=== PATIENT | male | born 1945 | race African-American/Black ===

== ENCOUNTER 2019-07-03 04:20 | Emergency (ER) | payer OTHER ==
--- OUTSIDE RECORDS SUMMARY | 2019-07-03 04:23 | XMS REPORT ---
:1945 [facility] Address [address] [place] [address] Dr. Belcher [address] [place] [id number] Care Team Providers Name Role Phone Unavailable Unavailable Unavailable Problems This patient has no known problems. Allergies, Adverse Reactions, Alerts This patient has no known allergies or adverse reactions. Medications This patient has no known medications.
--- NOTE | 2019-07-03 05:03 | EDPHYS ---
Physician Documentation [facility] Name: Lam Josue Age: 74 yrs Sex: Male : 1945 Arrival Date: 07/03/2019 Time: 04:21 Bed 20 Private MD: ED Physician Piper Ocampo HPI: 07/03 05:00 This 74 yrs old Black Male presents to ER via Ambulatory with complaints of Urinary ma2 Retention. 05:00 Onset: The symptoms/episode began/occurred gradually, 2 day(s) ago. Associated signs ma2 and symptoms: Pertinent negatives: blood in stools, constipation, diarrhea. Severity of pain: At its worst the pain was mild in the emergency department the pain is unchanged. The patient has not experienced similar symptoms in the past. Historical: - Allergies: 04:54 No Known Allergies; ea - PMHx: 04:54 Hypertension; ea - Immunization history:: Adult Immunizations up to date. - Coronavirus screen:: The patient has NOT traveled to [place] in the past 14 days. - Social history:: Patient/guardian denies using alcohol, street drugs, The patient lives with family, Smoking status: Patient denies any tobacco usage or history of. - Family history:: not pertinent. - Ebola Screening: : No symptoms or risks identified at this time. ROS: 05:00 Constitutional: Negative for fever, chills, and weight loss. ma2 05:00 All other systems are negative. Exam: 05:00 Constitutional: This is a well developed, well nourished patient who is awake, alert, ma2 and in no acute distress. Chest/axilla: Normal chest wall appearance and motion. Nontender with no deformity. No lesions are appreciated. Cardiovascular: Regular rate and rhythm with a normal S1 and S2. No gallops, murmurs, or rubs. Normal PMI, no JVD. No pulse deficits. Respiratory: Lungs have equal breath sounds bilaterally, clear to auscultation and percussion. No rales, rhonchi or wheezes noted. No increased work of breathing, no retractions or nasal flaring. Abdomen/GI: Soft, non-tender, with normal bowel sounds. No distension or tympany. No guarding or rebound. No evidence of tenderness throughout. Male : Normal genitalia with no discharge or lesions., had 500 cc in bladder, onofre inserted, pain resolved MS/ Extremity: Pulses equal, no cyanosis. Neurovascular intact. Full, normal range of motion. Neuro: Awake and alert, GCS 15, oriented to person, place, time, and situation. Cranial nerves II-XII grossly intact. Motor strength 5/5 in all extremities. Sensory grossly intact. Cerebellar exam normal. Normal gait. Vital Signs: 04:52 BP 121 / 75; Pulse 78; Resp 18; Temp 97.8; Pulse Ox 100% on R/A; Weight 72.57 kg; ea Height 5 ft. 8 in. (172.72 cm); 05:15 BP 107 / 65; Pulse 76; Resp 18; Pulse Ox 99% ; ea 04:52 Body Mass Index 24.33 (72.57 kg, 172.72 cm) ea MDM: 04:29 Patient medically screened. ma2 05:00 Differential diagnosis: Prostatitis, Ureterolithiasis, urinary tract infection. Data ma2 reviewed: vital signs, nurses notes. Counseling: I had a detailed discussion with the patient and/or guardian regarding: the historical points, exam findings, and any diagnostic results supporting the discharge/admit diagnosis, the presence of at least one elevated blood pressure reading (>120/80) during this emergency department visit. Response to treatment: the patient's symptoms have resolved after treatment. 02 04:29 Order name: Marge; Complete Time: 04:39 ma2 02 04:29 Order name: Urine Dipstick-Ancillary (obtain specimen) ma2 Administered Medications: No medications were administered Disposition: 07/03/19 05:02 Discharged to Home. Impression: Retention of urine, unspecified. - Condition is Stable. - Discharge Instructions: Acute Urinary Retention, Male, [id number]. - Prescriptions for Flomax 0.4 mg Oral Capsule, Sust. Release 24 hr - take 1 capsule by ORAL route once daily 1/2 hour following the same meal each day; 30 capsule. - Medication Reconciliation Form, Thank You Letter, Antibiotic Education, Prescription Opioid Use form. - Follow up: Hannah Joyce MD; When: 5 - 6 days; Reason: Continuance of care. Signatures: Lizz Russell RN RN ea Alzahri, Mohammad, MD MD ma2 Corrections: (The following items were deleted from the chart) 05:30 05:02 07/03/2019 05:02 Discharged to Home. Impression: Retention of urine, unspecified. ea Condition is Stable. Forms are Medication Reconciliation Form, Thank You Letter, Antibiotic Education, Prescription Opioid Use. Follow up: Hannah Joyce; When: 5 - 6 days; Reason: Continuance of care. ma2
--- NOTE | 2019-07-03 05:03 | ER ---
Nurse's Notes [facility] Name: Lam Josue Age: 74 yrs Sex: Male : 1945 Arrival Date: 07/03/2019 Time: 04:21 Bed 20 Private MD: Diagnosis: Retention of urine, unspecified Presentation: 07/03 04:40 Presenting complaint: Patient states: Pt reports he has been unable to urinate since 8 ea PM last night. Transition of care: patient was not received from another setting of care. Onset of symptoms was July 03, 2019. Risk Assessment: Do you want to hurt yourself or someone else? Patient reports no desire to harm self or others. Initial Sepsis Screen: Does the patient meet any 2 criteria? No. Patient's initial sepsis screen is negative. Does the patient have a suspected source of infection? No. Patient's initial sepsis screen is negative. 04:40 Method Of Arrival: Ambulatory ea 04:40 Acuity: RICHIE 3 ea 04:40 Care prior to arrival: None. ea Historical: - Allergies: 04:54 No Known Allergies; ea - PMHx: 04:54 Hypertension; ea - Immunization history:: Adult Immunizations up to date. - Coronavirus screen:: The patient has NOT traveled to [place] in the past 14 days. - Social history:: Patient/guardian denies using alcohol, street drugs, The patient lives with family, Smoking status: Patient denies any tobacco usage or history of. - Family history:: not pertinent. - Ebola Screening: : No symptoms or risks identified at this time. Screenin:40 Abuse screen: Denies threats or abuse. Nutritional screening: No deficits noted. ea Tuberculosis screening: No symptoms or risk factors identified. Fall Risk None identified. Assessment: 04:40 General: Appears uncomfortable, Behavior is calm, cooperative, appropriate for age. ea Pain: Complains of pain in pelvis. Neuro: Level of Consciousness is awake, alert, obeys commands, Oriented to person, place, time, situation. Respiratory: Airway is patent Respiratory effort is even, unlabored, Respiratory pattern is regular, symmetrical. Derm: Skin is pink, warm \T\ dry. 05:28 Reassessment: Patient and/or family updated on plan of care and expected duration. Pain ea level reassessed. Patient is alert, oriented x 3, equal unlabored respirations, skin warm/dry/pink. Discharge instruction given to patient , verbalized the understanding of instruction. Pt left ED ambulatory, Pt tolerating well. Vital Signs: 04:52 BP 121 / 75; Pulse 78; Resp 18; Temp 97.8; Pulse Ox 100% on R/A; Weight 72.57 kg; ea Height 5 ft. 8 in. (172.72 cm); 05:15 BP 107 / 65; Pulse 76; Resp 18; Pulse Ox 99% ; ea 04:52 Body Mass Index 24.33 (72.57 kg, 172.72 cm) ea ED Course: 04:21 Patient arrived in ED. ag3 04:29 Piper Ocampo MD is Attending Physician. ma2 04:30 Bird cath inserted, using sterile technique, 18 Fr., by ak, balloon inflated, to ea gravity drainage. 04:38 Lizz Russell RN is Primary Nurse. ea 04:40 Arm band placed on right wrist. Patient placed in an exam room, on a stretcher, on ea pulse oximetry. 04:40 Patient has correct armband on for positive identification. Placed in gown. Bed in low ea position. Call light in reach. 04:51 Triage completed. ea 05:02 Hannah Joyce MD is Referral Physician. ma2 05:28 No provider procedures requiring assistance completed. Patient did not have IV access ea during this emergency room visit. Administered Medications: No medications were administered Output: 05:00 Urine: 525ml (Bird); Total: 525ml. ea Outcome: 05:02 Discharge ordered by . ma2 05:29 Discharged to home ambulatory. ea 05:29 Condition: stable 05:29 Discharge instructions given to patient, Instructed on discharge instructions, follow up and referral plans. medication usage, Demonstrated understanding of instructions, follow-up care, medications, Prescriptions given X 1. 05:30 Patient left the ED. ea Signatures: Lizz Russell, ISABELA RN Piper Brambila MD MD ma2 Gomez, Alice ag3
[2019-07-03 06:47] VITALS: TEMP 97.8
[2019-07-03 06:48] VITALS: BP 107/65; O2SAT 99
== END 2019-07-03 05:30 | disposition home or self-care (01) ==
LOC: ER 04:20
DX: R33.9 Retention of urine, unspecified (principal); I10 Essential (primary) hypertension
CPT/HCPCS: 51702; 99284

== ENCOUNTER 2019-07-06 10:29 | Emergency (ER) | payer OTHER ==
--- OUTSIDE RECORDS SUMMARY | 2019-07-06 10:31 | XMS REPORT ---
:1945 [facility] Address [address] [place] [address] Dr. Belcher [address] [place] [id number] Care Team Providers Name Role Phone Unavailable Unavailable Unavailable Problems This patient has no known problems. Allergies, Adverse Reactions, Alerts This patient has no known allergies or adverse reactions. Medications This patient has no known medications.
[2019-07-06 14:10] LABS: Urine Blood 2+ (NEG); Urine Glucose NEGATIVE (NEG); Urine Protein 1+ (NEG); Urine pH 5.5 (5.0-7.0)
--- NOTE | 2019-07-06 15:27 | ER ---
Nurse's Notes [facility] Name: Lam Josue Age: 74 yrs Sex: Male : 1945 Arrival Date: 07/06/2019 Time: 10:32 Bed 16 Private MD: Diagnosis: Urinary tract infection, site not specified Presentation: 07/06 10:54 Presenting complaint: Here 3 days ago for urinary retention, report irritation at the hb catheter insertion site and bilateral hand swelling x 2 days. Transition of care: patient was not received from another setting of care. Onset of symptoms was July 05, 2019. Risk Assessment: Do you want to hurt yourself or someone else? Patient reports no desire to harm self or others. Care prior to arrival: None. 10:54 Method Of Arrival: Ambulatory hb 10:54 Acuity: RICHIE 4 hb 13:30 Initial Sepsis Screen: Does the patient meet any 2 criteria? No. Patient's initial ph sepsis screen is negative. Does the patient have a suspected source of infection? Yes: Catheter related infection (Bird/dialysis/PICC/central line). Historical: - Allergies: 10:56 No Known Allergies; hb - PMHx: 10:56 Hypertension; hb - PSHx: 10:56 None; hb - Immunization history:: Adult Immunizations up to date. - Coronavirus screen:: The patient has NOT traveled to [place] in the past 14 days. The patient has NOT had contact with known/suspected case of Coronavirus? Proceed with normal triage procedures. - Social history:: Smoking status: Patient denies any tobacco usage or history of. - Ebola Screening: : No symptoms or risks identified at this time. Screenin:00 Abuse screen: Denies threats or abuse. Denies injuries from another. Nutritional ph screening: No deficits noted. Tuberculosis screening: No symptoms or risk factors identified. Fall Risk None identified. Assessment: 13:30 General: Appears in no apparent distress. comfortable, Behavior is calm, cooperative, ph appropriate for age, Denies fever. Pain: Complains of pain in pelvis. Neuro: Level of Consciousness is awake, alert, obeys commands, Oriented to person, place, time, situation. Cardiovascular: Capillary refill < 3 seconds in bilateral fingers Patient's skin is warm and dry. Respiratory: Airway is patent Respiratory effort is even, unlabored, Respiratory pattern is regular, symmetrical. : Bird in place to gravity drainage Genitalia appear normal. Derm: Skin is intact, is healthy with good turgor, Skin is pink, warm \\T\\ dry. Musculoskeletal: Circulation, motion, and sensation intact. Range of motion: intact in all extremities, Swelling present in right hand and left hand. 14:40 Reassessment: Patient appears in no apparent distress at this time. Patient and/or ph family updated on plan of care and expected duration. Pain level reassessed. Patient is alert, oriented x 3, equal unlabored respirations, skin warm/dry/pink. Bird d/c per ERP order, pt tolerated well, now waiting for pt to urinate on his own. 15:20 Reassessment: Patient appears in no apparent distress at this time. Patient and/or ph family updated on plan of care and expected duration. Pain level reassessed. Patient is alert, oriented x 3, equal unlabored respirations, skin warm/dry/pink. Pt states, " I'm just ready to leave, I think it's going to take me a while to have to pee again. Do you think I can just go and then if I'm not able to pee I'll come back?". Vital Signs: 10:56 BP 107 / 69; Pulse 78; Resp 16; Temp 98.7; Pulse Ox 100% on R/A; Weight 68.04 kg; hb Height 5 ft. 8 in. (172.72 cm); Pain 4/10; 14:30 BP 127 / 86; Pulse 71; Resp 18; Temp 98.0; Pulse Ox 99% on R/A; ph 10:56 Body Mass Index 22.81 (68.04 kg, 172.72 cm) hb ED Course: 10:32 Patient arrived in ED. ag5 10:55 Triage completed. hb 10:56 Arm band placed on. hb 12:52 Shaquille Venegas PA is PHCP. [facility] 12:52 Casimiro Jacobsen MD is Attending Physician. [facility] 13:03 Audra Garcia, ISABELA is Primary Nurse. ph 13:30 Patient has correct armband on for positive identification. Bed in low position. Call light in reach. Side rails up X 1. Pulse ox on. NIBP on. 15:33 No provider procedures requiring assistance completed. Patient did not have IV access ph during this emergency room visit. Administered Medications: No medications were administered Outcome: 15: Discharge ordered by . gila 15:33 Patient left the ED. tw2 15: Discharged to home ambulatory. ph 15:33 Condition: good 15:33 Discharge instructions given to patient, Instructed on discharge instructions, follow up and referral plans. medication usage, Demonstrated understanding of instructions, follow-up care, medications, Prescriptions given X 1. Signatures: Shaquille Venegas PA PA jmm Hall, Patricia, RN RN Dara Lopez, ISABELA RN Lily Monte RN RN tw2 Clarence Villaseñor [facility]
--- NOTE | 2019-07-06 15:28 | EDPHYS ---
Physician Documentation [facility] Name: aLm Josue Age: 74 yrs Sex: Male : 1945 Arrival Date: 07/06/2019 Time: 10:32 Bed 16 Private MD: ED Physician Casimiro Jacobsen HPI: 07/06 13:30 This 74 yrs old Black Male presents to ER via Ambulatory with complaints of Infection. jmm 13:30 Onset: The symptoms/episode began/occurred gradually, 1 day(s) ago. Modifying factors: jmm The symptoms are alleviated by nothing, the symptoms are aggravated by nothing. Associated signs and symptoms: Pertinent positives: dysuria, Pertinent negatives: fever, hematuria, nausea, vomiting. This is a 74 year old male with a history of htn that presents to the ED with complaints of burning urination beginning yesterday. patient also has complains of ongoing bilateral hand pain and ankle swelling. Patient denies chest pain, fever, shortness of breath. . Historical: - Allergies: 10:56 No Known Allergies; hb - PMHx: 10:56 Hypertension; hb - PSHx: 10:56 None; hb - Immunization history:: Adult Immunizations up to date. - Coronavirus screen:: The patient has NOT traveled to [place] in the past 14 days. The patient has NOT had contact with known/suspected case of Coronavirus? Proceed with normal triage procedures. - Social history:: Smoking status: Patient denies any tobacco usage or history of. - Ebola Screening: : No symptoms or risks identified at this time. ROS: 13:30 Constitutional: Negative for fever, chills, and weight loss, Cardiovascular: Negative jmm for chest pain, palpitations, and edema, Respiratory: Negative for shortness of breath, cough, wheezing, and pleuritic chest pain, Abdomen/GI: Negative for abdominal pain, nausea, vomiting, diarrhea, and constipation. 13:30 : Positive for urinary symptoms. 13:30 MS/extremity: Positive for pain, swelling. 13:30 All other systems are negative. Exam: 13:30 Constitutional: This is a well developed, well nourished patient who is awake, alert, jmm and in no acute distress. Head/Face: atraumatic. Eyes: EOMI, no conjunctival erythema appreciated ENT: Moist Mucus Membranes Neck: Trachea midline, Supple Chest/axilla: Normal chest wall appearance and motion. Cardiovascular: Regular rate and rhythm. No edema appreciated Respiratory: Normal respirations, no respiratory distress appreciated Abdomen/GI: Non distended, soft Back: Normal ROM 13:30 Musculoskeletal/extremity: mild swelling noted to the ankle bilaterally, full dorsalis pedis pulse, compartments are soft, NVI. Negative homans bilaterally. . 13:30 Skin: Appearance: Color: normal in color. 13:30 Neuro: Orientation: is normal, Mentation: is normal, Memory: is normal. 13:30 Psych: Behavior/mood is pleasant, cooperative. Vital Signs: 10:56 BP 107 / 69; Pulse 78; Resp 16; Temp 98.7; Pulse Ox 100% on R/A; Weight 68.04 kg; hb Height 5 ft. 8 in. (172.72 cm); Pain 4/10; 14:30 BP 127 / 86; Pulse 71; Resp 18; Temp 98.0; Pulse Ox 99% on R/A; ph 10:56 Body Mass Index 22.81 (68.04 kg, 172.72 cm) hb MDM: 13:30 Patient medically screened. [facility] 14:15 Data reviewed: vital signs, nurses notes. Counseling: I had a detailed discussion with gila the patient and/or guardian regarding: the historical points, exam findings, and any diagnostic results supporting the discharge/admit diagnosis, lab results, the need for outpatient follow up, to return to the emergency department if symptoms worsen or persist or if there are any questions or concerns that arise at home. ED course: Bird removed. Patient unable to void in the ED. Patient does not want to wait in the ED and states he will return again if unable to urinate. Patient is alert and non toxic in appearance in the ED. Patient is advised to follow up with urology for further evaluation. Patient is otherwise given strict return precautions. Patient understood and agrees with the plan of care. . 07/06 13:31 Order name: Urine Culture [facility] 07/06 14:02 Order name: Urine Dipstick--Ancillary (enter results); Complete Time: 14:14 [facility] 07/06 13:31 Order name: Urine Dipstick-Ancillary (obtain specimen); Complete Time: 14:34 [facility] Administered Medications: No medications were administered Disposition: 15:43 Co-signature as Attending Physician, Casimiro Jacobsen MD I agree with the assessment and kdr plan of care. Disposition: 07/06/19 15:27 Discharged to Home. Impression: Urinary tract infection, site not specified. - Condition is Stable. - Discharge Instructions: Bird Catheter Care, Adult, Urinary Tract Infection, Adult. - Prescriptions for cefpodoxime 200 mg Oral Tablet - take 1 tablet by ORAL route every 12 hours with food; 20 tablet. - Medication Reconciliation Form, Thank You Letter, Antibiotic Education, Prescription Opioid Use form. - Follow up: Private Physician; When: 2 - 3 days; Reason: Recheck today's complaints, Continuance of care, Re-evaluation by your physician. Signatures: Dispatcher [employer] EDMS Casimiro Jacobsen MD MD kdr Mickail, Joel, PA PA [facility] Dara Lopez, RN RN Lily Quinteros RN RN tw2 Corrections: (The following items were deleted from the chart) 15: 14:15 ED course: Patient is alert and non toxic in appearance in the ED. Patient is [facility] advised to follow up with urology for further evaluation. Patient is otherwise given strict return precautions. Patient understood and agrees with the plan of care. . [facility] 15:33 15:27 07/06/2019 15:27 Discharged to Home. Impression: Urinary tract infection, site tw2 not specified. Condition is Stable. Forms are Medication Reconciliation Form, Thank You Letter, Antibiotic Education, Prescription Opioid Use. Follow up: Private Physician; When: 2 - 3 days; Reason: Recheck today's complaints, Continuance of care, Re-evaluation by your physician. [facility] 07/07 08:51 07/06 14:15 ED course: Bird removed. Patient unable to void in the ED. Patient does jmm not want to wait in the ED and states he will return again if unable to urinate. Patient is alert and non toxic in appearance in the ED. Patient is advised to follow up with urology for further evaluation. Patient is otherwise given strict return precautions. Patient understood and agrees with the plan of care. . [facility]
[2019-07-06 16:05] VITALS: BP 107/69; TEMP 98.7; O2SAT 100
== END 2019-07-06 15:33 | disposition home or self-care (01) ==
LOC: ER 10:29
DX: N39.0 Urinary tract infection, site not specified (principal)
CPT/HCPCS: 81003; 87077; 87086; 87088; 87186; 99283

== ENCOUNTER 2019-07-06 16:47 | Emergency (ER) | payer OTHER ==
--- OUTSIDE RECORDS SUMMARY | 2019-07-06 16:49 | XMS REPORT ---
:1945 [facility] Address [address] [place] [address] Dr. Belcher [address] [place] [id number] Care Team Providers Name Role Phone Unavailable Unavailable Unavailable Problems This patient has no known problems. Allergies, Adverse Reactions, Alerts This patient has no known allergies or adverse reactions. Medications This patient has no known medications.
--- NOTE | 2019-07-06 18:54 | ER ---
Nurse's Notes [facility] Name: Lam Josue Age: 74 yrs Sex: Male : 1945 Arrival Date: 07/06/2019 Time: 16:49 Bed 13 Private MD: Diagnosis: Urinary Retention Presentation: 07/06 16:51 Presenting complaint: Patient states: "I came in the emergency room on Tuesday because aj1 I couldn't pee, and they put in a catheter. I came back in today to have the doctor check my urine because I suspected I had an infection and I did and he gave me some medication for that. We decided to take out my catheter, and when I got home I felt the urge to pee I couldn't." Reports that he had his onofre removed one hour ago. Transition of care: patient was not received from another setting of care. Onset of symptoms was July 06, 2019. Risk Assessment: Do you want to hurt yourself or someone else? Patient reports no desire to harm self or others. Initial Sepsis Screen: Does the patient meet any 2 criteria? HR > 90 bpm. No. Patient's initial sepsis screen is negative. Does the patient have a suspected source of infection? Yes: Dysuria/Frequency/Urgency/UTI. Care prior to arrival: None. 16:51 Method Of Arrival: Ambulatory aj 16:51 Acuity: RICHIE 3 aj1 Triage Assessment: 16:54 General: Appears in no apparent distress. uncomfortable, Behavior is calm, cooperative, aj1 appropriate for age. Pain: Pain currently is 5 out of 10 on a pain scale. Neuro: Level of Consciousness is awake, alert, obeys commands. Cardiovascular: Patient's skin is warm and dry. Respiratory: Airway is patent Respiratory effort is even, unlabored, Respiratory pattern is regular, symmetrical. Historical: - Allergies: 16:54 No Known Allergies; aj1 - Home Meds: 16:54 Norvasc Oral [Active]; cholesterol medicine [Active]; Omeprazole Oral [Active]; aj1 - PMHx: 16:54 Hypertension; Hyperlipidemia; GERD; aj1 - Immunization history:: Flu vaccine is up to date. - Coronavirus screen:: The patient has NOT traveled to [place] in the past 14 days. - Social history:: Smoking status: Patient/guardian denies using tobacco. - Ebola Screening: : No symptoms or risks identified at this time. Screenin:17 Abuse screen: Denies threats or abuse. Denies injuries from another. Nutritional ph screening: No deficits noted. Tuberculosis screening: No symptoms or risk factors identified. Fall Risk None identified. Assessment: 18:30 General: Appears in no apparent distress. uncomfortable, slender, well groomed, ph Behavior is calm, cooperative, appropriate for age. Pain: Complains of pain in suprapubic area. Neuro: Level of Consciousness is awake, alert, obeys commands, Oriented to place, time, situation. Cardiovascular: Capillary refill < 3 seconds in bilateral fingers Patient's skin is warm and dry. Respiratory: Airway is patent Respiratory effort is even, unlabored. : Reports inability to void. Derm: Skin is intact, Skin is pink, warm \\T\\ dry. Musculoskeletal: Circulation, motion, and sensation intact. Range of motion: intact in all extremities. Vital Signs: 16:54 BP 126 / 73; Pulse 94; Resp 18; Temp 98.5; Pulse Ox 99% on R/A; Weight 68.04 kg (R); aj1 Height 5 ft. 8 in. (172.72 cm) (R); Pain 5/10; 19:18 BP 129 / 78; Pulse 87; Resp 18; Temp 98.0; Pulse Ox 99% on R/A; ph 16:54 Body Mass Index 22.81 (68.04 kg, 172.72 cm) aj1 ED Course: 16:49 Patient arrived in ED. as 16:53 Triage completed. aj1 16:54 Arm band placed on Patient placed in waiting room, Patient notified of wait time. aj1 17:00 Casimiro Jacobsen MD is Attending Physician. kdr 18:02 Shaquille Venegas PA is PHCP. [facility] 18:08 Audra Garcia, ISABELA is Primary Nurse. ph 18:30 Patient has correct armband on for positive identification. Bed in low position. Call ph light in reach. Side rails up X 1. 18:35 No provider procedures requiring assistance completed. Onofre cath inserted, using ph sterile technique, 16 Fr., by ar, balloon inflated, to gravity drainage, urine specimen collected. Patient tolerated well. pt to be d/c w/ onofre in place, will apply leg bag. Patient did not have IV access during this emergency room visit. 18:51 Hannah Joyce MD is Referral Physician. gila Administered Medications: No medications were administered Outcome: 18:51 Discharge ordered by . gila 19:18 Discharged to home ambulatory. ph 19:18 Condition: good 19:18 Discharge instructions given to patient, Instructed on discharge instructions, follow up and referral plans. Demonstrated understanding of instructions, follow-up care. 19:19 Patient left the ED. ph Signatures: Noemí Fajardo, RN RN aj1 Casimiro Jacobsen MD MD kdr Mickail, Joel, PA PA Bela Wan as Audra Garcia RN RN ph Corrections: (The following items were deleted from the chart) 16:55 16:54 Arm band placed on Patient placed in an exam room, aj1 aj1
--- NOTE | 2019-07-06 18:54 | EDPHYS ---
Physician Documentation [facility] Name: Lam Josue Age: 74 yrs Sex: Male : 1945 Arrival Date: 07/06/2019 Time: 16:49 Bed 13 Private MD: ED Physician Casimiro Jacobsen HPI: 07/06 18:06 This 74 yrs old Black Male presents to ER via Ambulatory with complaints of Urinary jmm Problem. 18:06 The patient presents with urinary symptoms, retention. Onset: The symptoms/episode jmm began/occurred today. Modifying factors: The symptoms are alleviated by nothing, the symptoms are aggravated by nothing. Associated signs and symptoms: Pertinent negatives: fever, hematuria. Patient returns to the ED being unable to void at home. Patient was evaluated earlier today due to painful urination. . Historical: - Allergies: 16:54 No Known Allergies; aj1 - Home Meds: 16:54 Norvasc Oral [Active]; cholesterol medicine [Active]; Omeprazole Oral [Active]; aj1 - PMHx: 16:54 Hypertension; Hyperlipidemia; GERD; aj1 - Immunization history:: Flu vaccine is up to date. - Coronavirus screen:: The patient has NOT traveled to [place] in the past 14 days. - Social history:: Smoking status: Patient/guardian denies using tobacco. - Ebola Screening: : No symptoms or risks identified at this time. ROS: 18:06 Constitutional: Negative for fever, chills, and weight loss, Cardiovascular: Negative jmm for chest pain, palpitations, and edema, Respiratory: Negative for shortness of breath, cough, wheezing, and pleuritic chest pain, Abdomen/GI: Negative for abdominal pain, nausea, vomiting, diarrhea, and constipation. 18:06 : Positive for urinary symptoms. 18:06 All other systems are negative. Exam: 18:06 Constitutional: This is a well developed, well nourished patient who is awake, alert, jmm and in no acute distress. Head/Face: atraumatic. Eyes: EOMI, no conjunctival erythema appreciated ENT: Moist Mucus Membranes Neck: Trachea midline, Supple Chest/axilla: Normal chest wall appearance and motion. Cardiovascular: Regular rate and rhythm. No edema appreciated Respiratory: Normal respirations, no respiratory distress appreciated Abdomen/GI: Non distended, soft Back: Normal ROM 18:06 Skin: General appearance color normal MS/ Extremity: Moves all extremities, no obvious deformities appreciated, no edema noted to the lower extremities Neuro: Awake and alert, normal gait Psych: Behavior is normal, Mood is normal, Patient is cooperative and pleasant Vital Signs: 16:54 BP 126 / 73; Pulse 94; Resp 18; Temp 98.5; Pulse Ox 99% on R/A; Weight 68.04 kg (R); aj1 Height 5 ft. 8 in. (172.72 cm) (R); Pain 5/10; 19:18 BP 129 / 78; Pulse 87; Resp 18; Temp 98.0; Pulse Ox 99% on R/A; ph 16:54 Body Mass Index 22.81 (68.04 kg, 172.72 cm) 1 MDM: 18:02 Patient medically screened. [facility] 18:34 Data reviewed: vital signs, nurses notes. Counseling: I had a detailed discussion with gila the patient and/or guardian regarding: the historical points, exam findings, and any diagnostic results supporting the discharge/admit diagnosis. ED course: Patient is alert and non toxic in appearance in the ED. . 07/06 19:06 Order name: Urine Culture ph 07/06 19:18 Order name: Urine Dipstick--Ancillary (enter results) mw2 07/06 18:04 Order name: Bird; Complete Time: 18:51 [facility] 07/06 18:34 Order name: Urine Dipstick-Ancillary (obtain specimen); Complete Time: 18:51 [facility] Administered Medications: No medications were administered Disposition: 07/06/19 18:51 Discharged to Home. Impression: Urinary Retention. - Condition is Stable. - Discharge Instructions: Acute Urinary Retention, Male. - Medication Reconciliation Form, Thank You Letter, Antibiotic Education, Prescription Opioid Use form. - Follow up: Hannah Joyce; When: 2 - 3 days; Reason: Recheck today's complaints, Continuance of care, Re-evaluation by your physician. Addendum: 07/09/2019 07:13 Co-signature as Attending Physician, Casimiro Jacobsen MD I agree with the assessment and k dr plan of care. Signatures: Dispatcher [employer] EDNoemí Gonzalez RN RN aj1 Casimiro Jacobsen MD MD kdr Mickail, Joel, PA PA [facility] Audra Garcia, RN RN ph Corrections: (The following items were deleted from the chart) 07/06 19:19 18:51 07/06/2019 18:51 Discharged to Home. Impression: Urinary Retention. Condition is ph Stable. Discharge Instructions: Acute Urinary Retention, Male. Forms are Medication Reconciliation Form, Thank You Letter, Antibiotic Education, Prescription Opioid Use. Follow up: Hannah Jocye; When: 2 - 3 days; Reason: Recheck today's complaints, Continuance of care, Re-evaluation by your physician. gila
[2019-07-06 19:23] LABS: Urine Blood 3+ (NEG); Urine Glucose NEGATIVE (NEG); Urine Protein NEGATIVE (NEG); Urine Specific Gravity 1.025 (1.005-1.030); Urine pH 5.5 (5.0-7.0)
[2019-07-06 22:41] VITALS: BP 126/73; TEMP 98.5; O2SAT 99
== END 2019-07-06 19:19 | disposition home or self-care (01) ==
LOC: ER 16:47
DX: R33.9 Retention of urine, unspecified (principal); K21.9 Gastro-esophageal reflux disease without esophagitis; E78.5 Hyperlipidemia, unspecified; I10 Essential (primary) hypertension
CPT/HCPCS: 51702; 81003; 87077; 87086; 87088; 87186; 99284

== ENCOUNTER 2022-07-28 04:24 | Emergency (ER) | payer OTHER ==
--- NOTE | 2022-07-28 04:56 | EDPHYS ---
Physician Documentation [facility] Name: Lam Josue Age: 77 yrs Sex: Male : 1945 Arrival Date: 07/28/2022 Time: 04:25 Bed 14 Private MD: ED Physician Saúl Rodriguez HPI: 07/28 04:31 This 77 yrs old Black Male presents to ER via Unassigned with complaints of High Blood sp4 Pressure. MDM: 04:55 Patient medically screened. sp4 Administered Medications: No medications were administered Disposition Summary: 07/28/22 04:55 Discharge Ordered Location: Home sp4 Problem: new sp4 Symptoms: have improved sp4 Condition: Stable sp4 Diagnosis - Essential (primary) hypertension sp4 Followup: sp4 - With: Private Physician - When: 24 Hours - Reason: Re-evaluation by your physician Discharge Instructions: - Discharge Summary Sheet sp4 - Hypertension, Adult sp4 Forms: - Thank You Letter sp4 Signatures: Saúl Rodriguez MD MD sp4
[2022-07-28] MEDS ORDERED: cloNIDine HCL 0.1 MG TAB ONE (05:00)
--- OUTSIDE RECORDS SUMMARY | 2022-07-28 05:10 | XMS REPORT | Continuity of Care Document ---
:1945 Author Organization [facility] t Address [address] [facility] [place] [address] Care Team Providers Name Role Phone System MD, Provider Not In Primary Care Physician UnavailSHAQUILLE Peña Attending Clinician Unavailable Coco Humphreys Attending Clinician Unavailable Rox Samuel Attending Clinician Unavailable ERICKSON_R Attending Clinician Unavailable Doctor Unassigned, [place] Attending Clinician Unavailable Faraz Saldana Attending Clinician [phone] NATALIA APARICIO Attending Clinician Unavailable Vinita Azevedo Attending Clinician VINITA DIETZ Attending Clinician Unavailable Miller_S_AH Attending Clinician Unavailable Rebekah-Mbayo_A_AH Attending Clinician Unavailable YOAN ROMAN Attending Clinician Unavailable ERICKSON_R Admitting Clinician Unavailable Miller_S_AH Admitting Clinician Unavailable Rebekah-Mbayo_A_AH Admitting Clinician Unavailable Payers Payer Name Policy Type Policy Number Effective Date Expiration Date S ource GENERIC INTERFACED [id number] 2016 2016 [facility] PLAN 00:00:00 00:00:00 [facility] [id number] 1999 00:00:00 [facility] [id number] 2018 [employer] 00:00:00 (MEDICARE REPLACEMENT HMO) [employer] [place] - [id number] 2019 [employer] (MEDICARE 00:00:00 REPLACEMENT/ADVANTA GE - HMO) Problems Condition Condition Condition Status Onset Resolution Last Treating Co mments Source Name Details Category Date Date Treatment Clinician Date Tinea Tinea Problem Active [place] capitis Capitis 3-24 Communi 00:00: ty 00 [facility] Hypertensi Hypertensi Problem Active [facility] ve ve 3-24 Communi disorder Disorder 00:00: ty 00 [facility] Benign Benign Problem Active [place] prostatic Prostatic 3-24 Comm uni hyperplasi Hyperplasi 00:00: ty a with a with 00 Hospita outflow Outflow l obstructio Obstructio Cl inics n n Right side Right Side Problem Active [facility] sciatica Sciatica 3-24 Commun i 00:00: ty 00 [facility] Gastroesop Gastroesop Problem Active [facility] [place] hageal hageal 3-24 Communi reflux Reflux 00:00: ty disease Disease 00 [facility] Osteoarthr Osteoarthr Problem Active [facility] [place] itis itis 3-24 Communi 00:00: ty 00 [facility] History of History of Problem Active 2020-05 S [facility] dislocated Dislocated 2-19 Co mmuni shoulder Shoulder 00:00: ty 00 [facility] Benign Benign Problem Active [place] prostatic Prostatic 5-04 Fami ly hyperplasi Hyperplasi 00:00: Pr actic a a 00 e Chronic Chronic Problem Active [place] neck pain Neck Pain 5-01 Fami ly 00:00: Practic 00 e Chronic Chronic Problem Active [place] back pain Back Pain 5-01 Fami ly 00:00: Practic 00 e Unsteady Unsteady Problem Active 2019- [facility] gait Gait 2-16 Family 00:00: Practic 00 e Abnormal Abnormal Problem Active [facility] weight Weight 2-16 Family loss Loss 00:00: Practic 00 e Hyperlipid Hyperlipid Problem Active [facility] emia emia 2-13 Family 00:00: Practic 00 e 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, Episodes, 00 e moderate Moderate Essential Essential Problem Active Selina aysha hypertensi Hypertensi 2-13 Fa xavi on on 00:00: Practic 00 e Gastroesop Gastroesop Problem Active [facility] hageal hageal 2-13 Family reflux Reflux 00:00: Practic disease Disease 00 e Paroxysmal Paroxysmal Problem Active [facility] atrial Atrial 1-08 Family fibrillati Fibrillati 00:00: Pr actic on on e Hyperlipid Hyperlipid Problem Active S [facility] emia emia 7-15 Communi 00:00: ty 00 [facility] Essential Essential Problem Active Swe marilyn hypertensi Hypertensi 7-15 Co mmuni on on 00:00: ty 00 [facility] History of History of Problem Active [facility] [place] deep vein Deep Vein 7-15 Comm uni thrombosis Thrombosis 00:00: ty 00 [facility] Troponin I Troponin I Disease Active U nivers above above 7-15 ity of [place] range 00 [facility] 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 7-14 Commun i 00:00: ty 00 [facility] Internal Internal Problem Active 2017-05 [place] hemorrhoid Hemorrhoid 0-02 Co mmuni s s 00:00: ty 00 [facility] History of History of Problem Active 2017-05 S [place] polyp of Polyp of 0-02 Commun i colon Colon 00:00: ty 00 [facility] Diverticul Diverticul Problem Active 2017-05 S [facility] osis of osis of 0-02 Communi large Large 00:00: ty intestine Intestine 00 Hosp pattie [facility] Personal Personal Disease Active [place] di history of history of 4-30 st [facility] l Closed Closed Disease Active [facility] compressio compressio 4-30 st n fracture n fracture 00:00: Ho spita of of 00 l thoracic thoracic vertebra vertebra Debility Debility Disease Active [place] di 4-30 st 00:00: Hospita 00 l Fixation Fixation Disease Active [place] di hardware hardware 4-30 st in spine in spine 00:00: Hospit a 00 l 723.4 - 723.4 - Diagnosis Active 2015-02-05 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 OPID [place] Knee pain Knee pain Problem Resolve 2015-02-08 Memoria (finding) (finding) d 13:28:30 l Resolved Mono Problem 02/08/2015 OPID [place] Shoulder Shoulder Problem Resolve 2015-02-08 Memoria joint pain joint pain d 13:28:30 l (finding) (finding) Herm osei Resolved Problem 02/08/2015 [facility] [place] Hip pain Hip pain Problem Resolve 2015-02-08 Memoria (finding) (finding) d 13:28:30 l Resolved Mono Problem 02/08/2015 OPID [place] Allergies, Adverse Reactions, Alerts Allergy Allergy Status Severity Reaction(s) Onset Inactive Treating Comm ents Source Name Type Date Date Clinician No Known [facility] 00:00: s 00 No Known [facility] Allergie 00:00: s 00 NO KNOWN Drug Active Univers ALLERGIE Class ity of S [facility] Family History Family Member Diagnosis Comments Start Date Stop Date Source Natural mother Clotting disorder [facility] Social History Social Habit Start Date Stop Date Quantity Comments Source Exposure to Not sure University SARS-CoV-2 [facility] (event) Branch Alcohol intake 2018-12-11 2018-12-11 Current [facility] 00:00:00 00:00:00 non-drinker of alcohol (finding) Tobacco use and 2016-12-09 2016-12-09 Smokeless tobacco Un iversity of exposure 00:00:00 00:00:00 non-user [facility] Sex Assigned [birth year] [facility] 00:00:00 00:00:00 Smoking Status Start Date Stop Date Source Tobacco smoking consumption unknown [facility] Social History [facility] Medications Ordered Filled Start Stop Current Ordering Indication Dosage Frequency Signature Comments Components Source Medication Medication Date Date Medication? Clinician (SIG) Name Name Tylenol-Cod Tylenol-Cod 2020-05 No 1{tbl} Tylenol-Co Angeli eine #3 300 eine #3 300 2-30 deine #3 Communi mg-30 mg mg-30 mg 00:00: 300 mg-30 ty tablet 1 tablet 1 00 mg tablet Ho spita {tbl} by {tbl} by 1 {tbl} by l oral route. oral route. oral C linics route. acetaminoph 2020-05 Yes 4647 1{tbl} Take 1 Un sven en-codeine 2-30 tablet by ity of (TYLENOL-CO 00:00: mouth [place] DEINE #3) 00 every 4 Medical 300-30 mg (four) Branch tablet hours as needed for Pain (scale 4-6) or Pain (scale 7-10). Indication s: acute pain acetaminoph 2020-05 Yes 4647 1{tbl} Take 1 Un sven en-codeine 2-30 tablet by ity of (TYLENOL-CO 00:00: mouth [place] DEINE #3) 00 every 4 Medical 300-30 mg (four) Branch tablet hours as needed for Pain (scale 4-6) or Pain (scale 7-10). Indication s: acute pain acetaminoph 2020-05 Yes 4647 1{tbl} Take 1 Un sven en-codeine 2-30 tablet by ity of (TYLENOL-CO 00:00: mouth [place] DEINE #3) 00 every 4 Medical 300-30 mg (four) Branch tablet hours as needed for Pain (scale 4-6) or Pain (scale 7-10). Indication s: acute pain acetaminoph 2020-05 Yes 4647 1{tbl} Take 1 Un sven en-codeine 2-30 tablet by ity of (TYLENOL-CO 00:00: mouth [place] DEINE #3) 00 every 4 Medical 300-30 mg (four) Branch tablet hours as needed for Pain (scale 4-6) or Pain (scale 7-10). Indication s: acute pain acetaminoph 2020-05 Yes 4647 1{tbl} Take 1 Un sven en-codeine 2-30 tablet by ity of (TYLENOL-CO 00:00: mouth [place] DEINE #3) 00 every 4 Medical 300-30 mg (four) Branch tablet hours as needed for Pain (scale 4-6) or Pain (scale 7-10). Indication s: acute pain acetaminoph 2020-05 Yes 4647 1{tbl} Take 1 Un sven en-codeine 2-30 tablet by ity of (TYLENOL-CO 00:00: mouth [place] DEINE #3) 00 every 4 Medical 300-30 mg (four) Branch tablet hours as needed for Pain (scale 4-6) or Pain (scale 7-10). Indication s: acute pain Tylenol-Cod Tylenol-Cod 2020-05 No 1{tbl} Tylenol-Co [place] eine #3 300 eine #3 300 2-30 deine #3 Communi mg-30 mg mg-30 mg 00:00: 300 mg-30 ty tablet 1 tablet 1 00 mg tablet Ho spita {tbl} by {tbl} by 1 {tbl} by l oral route. oral route. oral C linics route. Tylenol-Cod Tylenol-Cod 2020-05 No 1{tbl} Tylenol-Co [place] eine #3 300 eine #3 300 2-30 deine #3 Communi mg-30 mg mg-30 mg 00:00: 300 mg-30 ty tablet 1 tablet 1 00 mg tablet Ho spita {tbl} by {tbl} by 1 {tbl} by l oral route. oral route. oral C linics route. tamsulosin Yes Take by Univ ers 0.4 mg 24 01-17 mouth ity of hr capsule 15:54: daily. [address] Branch rivaroxaban Yes 15mg Take 15 mg Univers (XARELTO) 01-17 by mouth 2 ity of 15 mg 15:54: (two) [place] tablet 00 times Medical daily. Branch tamsulosin Yes Take by Univ ers 0.4 mg 24 04 mouth ity of hr capsule 15:54: daily. [address] rivaroxaban Yes 15mg Take 15 mg Univers (XARELTO) 01-17 by mouth 2 ity of 15 mg 15:54: (two) [place] tablet 00 times Medical daily. Branch tamsulosin 2018-0 Yes Take by Univ ers 0.4 mg 24 9-04 mouth ity of hr capsule 15:54: daily. Medical Branch rivaroxaban 2018-0 Yes 15mg Take 15 mg Univers (XARELTO) 9-04 by mouth 2 ity of 15 mg 15:54: (two) [place] tablet 00 times Medical daily. Branch tamsulosin 2018-0 Yes Take by Univ ers 0.4 mg 24 9-04 mouth ity of hr capsule 15:54: daily. Medical Branch rivaroxaban Yes 15mg Take 15 mg Univers (XARELTO) 9-04 by mouth 2 ity of 15 mg 15:54: (two) [place] tablet 00 times Medical daily. Branch tamsulosin 2018-0 Yes Take by Univ ers 0.4 mg 24 9-04 mouth ity of hr capsule 15:54: daily. Medical Branch rivaroxaban Yes 15mg Take 15 mg Univers (XARELTO) 9-04 by mouth 2 ity of 15 mg 15:54: (two) [place] tablet 00 times Medical daily. Branch tamsulosin 0 Yes Take by Univ ers 0.4 mg 24 9-04 mouth ity of hr capsule 15:54: daily. Medical Branch rivaroxaban 2018-0 Yes 15mg Take 15 mg Univers (XARELTO) 9-04 by mouth 2 ity of 15 mg 15:54: (two) [place] tablet 00 times Medical daily. Branch tamsulosin 0 Yes Take by Univ ers 0.4 mg 24 9-04 mouth ity of hr capsule 15:54: daily. Medical Branch rivaroxaban 0 Yes 15mg Take 15 mg Univers (XARELTO) 9-04 by mouth 2 ity of 15 mg 15:54: (two) [place] tablet 00 times Medical daily. Branch fluticasone 2018- Yes [id number] 1{spray Use 1 Univers propionate 9-04 } [place] in ity o f 50 00:00: each [place] mcg/actuati 00 nostril 2 Med ical on nasal (two) Branch spray times daily. fluticasone 2018- Yes [id number] 1{spray Use 1 Univers propionate 9-04 } [place] in ity o f 50 00:00: each [place] mcg/actuati 00 nostril 2 Med ical on nasal (two) Branch spray times daily. fluticasone 2019-0 Yes [id number] 1{spray Use 1 Univers propionate 9-04 } [place] in ity o f 50 00:00: each [place] mcg/actuati 00 nostril 2 Med ical on nasal (two) Branch spray times daily. fluticasone 2019-0 Yes [id number] 1{spray Use 1 Univers propionate 9-04 } [place] in ity o f 50 00:00: each [place] mcg/actuati 00 nostril 2 Med ical on nasal (two) Branch spray times daily. fluticasone 2018- Yes [id number] 1{spray Use 1 Univers propionate 9-04 } [place] in ity o f 50 00:00: each [place] mcg/actuati 00 nostril 2 Med ical on nasal (two) Branch spray times daily. fluticasone 2018- Yes [id number] 1{spray Use 1 Univers propionate 9-04 } [place] in ity o f 50 00:00: each [place] mcg/actuati 00 nostril 2 Med ical on nasal (two) Branch spray times daily. fluticasone 2018-0 Yes [id number] 1{spray Use 1 Univers propionate 9-04 } [place] in ity o f 50 00:00: each [place] mcg/actuati 00 nostril 2 Med ical on nasal (two) Branch spray times daily. rivaroxaban Yes [id number] 20mg Take 1 Univers 20 mg 8-10 tablet by ity of tablet 00:00: mouth [place] 00 daily. Medical Starting Branch 12/23 rivaroxaban Yes [id number] 20mg Take 1 Univers 20 mg 8-10 tablet by ity of tablet 00:00: mouth [place] 00 daily. Medical Starting Branch 12/23 rivaroxaban Yes [id number] 20mg Take 1 Univers 20 mg 8-10 tablet by ity of tablet 00:00: mouth [place] 00 daily. Medical Starting Branch 12/23 rivaroxaban Yes [id number] 20mg Take 1 Univers 20 mg 8-10 tablet by ity of tablet 00:00: mouth [place] 00 daily. Medical Starting Branch 12/23 rivaroxaban Yes [id number] 20mg Take 1 Univers 20 mg 8-10 tablet by ity of tablet 00:00: mouth [place] 00 daily. [facility] 8 rivaroxaban 2018-0 Yes [id number] 20mg Take 1 Univers 20 mg 8-10 tablet by ity of tablet 00:00: mouth [place] 00 daily. [facility] 8 rivaroxaban 2018-0 Yes [id number] 20mg Take 1 Univers 20 mg 8-10 tablet by ity of tablet 00:00: mouth [place] 00 daily. [facility] mirtazapine 2018-0 Yes 15mg Take 15 mg Univers 15 mg 7-19 by mouth ity of tablet 17:36: daily. [address] mirtazapine 2018-0 Yes 15mg Take 15 mg Univers 15 mg 7-19 by mouth ity of tablet 17:36: daily. [address] mirtazapine 2018-0 Yes 15mg Take 15 mg Univers 15 mg 7-19 by mouth ity of tablet 17:36: daily. [address] mirtazapine 2018-0 Yes 15mg Take 15 mg Univers 15 mg 7-19 by mouth ity of tablet 17:36: daily. [address] mirtazapine 2018-0 Yes 15mg Take 15 mg Univers 15 mg 7-19 by mouth ity of tablet 17:36: daily. [address] mirtazapine 2018-0 Yes 15mg Take 15 mg Univers 15 mg 7-19 by mouth ity of tablet 17:36: daily. [address] mirtazapine 2018-0 Yes 15mg Take 15 mg Univers 15 mg 7-19 by mouth ity of tablet 17:36: daily. [address] omeprazole 2019-0 Yes [id number] 40mg Take 1 Univers 40 mg 7-19 capsule by ity of capsule 00:00: mouth [place] 00 daily. [facility] omeprazole 2019-0 Yes [id number] 40mg Take 1 Univers 40 mg 7-19 capsule by ity of capsule 00:00: mouth [place] 00 daily. [facility] omeprazole 2019-0 Yes [id number] 40mg Take 1 Univers 40 mg 7-19 capsule by ity of capsule 00:00: mouth [place] 00 daily. [facility] omeprazole 2019-0 Yes [id number] 40mg Take 1 Univers 40 mg 7-19 capsule by ity of capsule 00:00: mouth [place] 00 daily. [facility] omeprazole 2019-0 Yes [id number] 40mg Take 1 Univers 40 mg 7-19 capsule by ity of capsule 00:00: mouth [place] 00 daily. Medical Branch omeprazole 2019-0 Yes [id number] 40mg Take 1 Univers 40 mg 7-19 capsule by ity of capsule 00:00: mouth [place] 00 daily. Medical Branch omeprazole 2019-0 Yes [id number] 40mg Take 1 Univers 40 mg 7-19 capsule by ity of capsule 00:00: mouth [place] 00 daily. Medical Branch metoprolol 2018-0 Yes 50mg QD Take 50 mg M ethodi succinate 4-[address] XL 14:16: daily. Hospita (TOPROL-XL) 26 l 50 mg 24 hr tablet atorvastati 2018-0 Yes 20mg QD Take 20 mg Methodi n (LIPITOR) 4-[address] 20 MG 14:16: daily. Hospita tablet 26 Default OP l ins rivaroxaban 2018 Yes 20mg Take 20 mg Methodi (XARELTO) 4-[address] 20 mg 14:16: Hospita tablet 26 l metoprolol 2018-0 Yes 50mg QD Take 50 mg M ethodi succinate 4-[address] XL 14:16: daily. Hospita (TOPROL-XL) 26 l 50 mg 24 hr tablet atorvastati 2017-0 Yes 20mg QD Take 20 mg Methodi n (LIPITOR) 4-[address] 20 MG 14:16: daily. Hospita tablet 26 Default OP l ins rivaroxaban 2018-0 Yes 20mg Take 20 mg Methodi (XARELTO) 4-[address] 20 mg 14:16: Hospita tablet 26 l metoprolol 2018-0 Yes 50mg QD Take 50 mg M ethodi succinate 4-[address] XL 14:16: daily. Hospita (TOPROL-XL) 26 l 50 mg 24 hr tablet atorvastati 2018-0 Yes 20mg QD Take 20 mg Methodi n (LIPITOR) 4-[address] 20 MG 14:16: daily. Hospita tablet 26 Default OP l ins rivaroxaban 2018-0 Yes 20mg Take 20 mg Methodi (XARELTO) 4-[address] 20 mg 14:16: Hospita tablet 26 l metoprolol 2018-0 Yes 50mg QD Take 50 mg M ethodi succinate 4-[address] XL 14:16: daily. Hospita (TOPROL-XL) 26 l 50 mg 24 hr tablet atorvastati 2018-0 Yes 20mg QD Take 20 mg Methodi n (LIPITOR) 4-[address] 20 MG 14:16: daily. Hospita tablet 26 Default OP l ins rivaroxaban 2018-0 Yes 20mg Take 20 mg Methodi (XARELTO) 4-[address] 20 mg 14:16: Hospita tablet 26 l metoprolol 2018-0 Yes 50mg QD Take 50 mg M ethodi succinate 4-[address] XL 14:16: daily. Hospita (TOPROL-XL) 26 l 50 mg 24 hr tablet atorvastati 2018-0 Yes 20mg QD Take 20 mg Methodi n (LIPITOR) 4-[address] 20 MG 14:16: daily. Hospita tablet 26 Default OP l ins rivaroxaban 2018-0 Yes 20mg Take 20 mg Methodi (XARELTO) 4-[address] 20 mg 14:16: Hospita tablet 26 l metoprolol 2018-0 Yes 50mg QD Take 50 mg M ethodi succinate 4-[address] XL 14:16: daily. Hospita (TOPROL-XL) 26 l 50 mg 24 hr tablet atorvastati 2018-0 Yes 20mg QD Take 20 mg Methodi n (LIPITOR) 4-[address] 20 MG 14:16: daily. Hospita tablet 26 Default OP l ins rivaroxaban 2018-0 Yes 20mg Take 20 mg Methodi (XARELTO) 4-[address] 20 mg 14:16: Hospita tablet 26 l metoprolol 2018-0 Yes 50mg QD Take 50 mg M ethodi succinate 4-[address] XL 14:16: daily. Hospita (TOPROL-XL) 26 l 50 mg 24 hr tablet atorvastati 2018-0 Yes 20mg QD Take 20 mg Methodi n (LIPITOR) 4-[address] 20 MG 14:16: daily. Hospita tablet 26 Default OP l ins rivaroxaban 2018-0 Yes 20mg Take 20 mg Methodi (XARELTO) 4-[address] 20 mg 14:16: Hospita tablet 26 l metoprolol 2018-0 Yes 50mg QD Take 50 mg M ethodi succinate 4-[address] XL 14:16: daily. Hospita (TOPROL-XL) 26 l 50 mg 24 hr tablet atorvastati 2018-0 Yes 20mg QD Take 20 mg Methodi n (LIPITOR) 4-[address] 20 MG 14:16: daily. Hospita tablet 26 Default OP l ins rivaroxaban 2018-0 Yes 20mg Take 20 mg Methodi (XARELTO) 4-[address] 20 mg 14:16: Hospita tablet 26 l metoprolol 2018-0 Yes 50mg QD Take 50 mg M ethodi succinate 4-[address] XL 14:16: daily. Hospita (TOPROL-XL) 26 l 50 mg 24 hr tablet atorvastati 2018-0 Yes 20mg QD Take 20 mg Methodi n (LIPITOR) 4-[address] 20 MG 14:16: daily. Hospita tablet 26 Default OP l ins rivaroxaban 2018-0 Yes 20mg Take 20 mg Methodi (XARELTO) 4-[address] 20 mg 14:16: Hospita tablet 26 l metoprolol 2018-0 Yes 50mg QD Take 50 mg M ethodi succinate 4-[address] XL 14:16: daily. Hospita (TOPROL-XL) 26 l 50 mg 24 hr tablet atorvastati 2018-0 Yes 20mg QD Take 20 mg Methodi n (LIPITOR) 4-[address] 20 MG 14:16: daily. Hospita tablet 26 Default OP l ins rivaroxaban 2018-0 Yes 20mg Take 20 mg Methodi (XARELTO) 4-[address] 20 mg 14:16: Hospita tablet 26 l amLODIPine 2018-0 Yes 5mg QD Take 5 mg Me [facility]odi (NORVASC) 5 4-[address] mg tablet 14:16: daily. Hospit a 25 l tamsulosin 2018-0 Yes .4mg QD Take 0.4 Met hodi (FLOMAX) 4-[address] 0.4 mg 14:16: mouth Hospita capsule,ext 25 daily. l ended release 24hr amLODIPine 2018-0 Yes 5mg QD Take 5 mg Me [facility] (NORVASC) 5 4-[address] mg tablet 14:16: daily. Hospit a 25 l tamsulosin 2018-0 Yes .4mg QD Take 0.4 Met hodi (FLOMAX) 4-[address] 0.4 mg 14:16: mouth Hospita capsule,ext 25 daily. l ended release 24hr amLODIPine 2018-0 Yes 5mg QD Take 5 mg Me thodi (NORVASC) 5 4-[address] mg tablet 14:16: daily. Hospit a 25 l tamsulosin 2018-0 Yes .4mg QD Take 0.4 Met hodi (FLOMAX) 4-[address] 0.4 mg 14:16: mouth Hospita capsule,ext 25 daily. l ended release 24hr amLODIPine 2018-0 Yes 5mg QD Take 5 mg Me thodi (NORVASC) 5 4-[address] mg tablet 14:16: daily. Hospit a 25 l tamsulosin 2018-0 Yes .4mg QD Take 0.4 Met hodi (FLOMAX) 4-[address] 0.4 mg 14:16: mouth Hospita capsule,ext 25 daily. l ended release 24hr amLODIPine 2018-0 Yes 5mg QD Take 5 mg Me thodi (NORVASC) 5 4-[address] mg tablet 14:16: daily. Hospit a 25 l tamsulosin 2018-0 Yes .4mg QD Take 0.4 Met hodi (FLOMAX) 4-[address] 0.4 mg 14:16: mouth Hospita capsule,ext 25 daily. l ended release 24hr amLODIPine 2018-0 Yes 5mg QD Take 5 mg Me thodi (NORVASC) 5 4-[address] mg tablet 14:16: daily. Hospit a 25 l tamsulosin 2018-0 Yes .4mg QD Take 0.4 Met hodi (FLOMAX) 4-[address] 0.4 mg 14:16: mouth Hospita capsule,ext 25 daily. l ended release 24hr amLODIPine 2018-0 Yes 5mg QD Take 5 mg Me thodi (NORVASC) 5 4-[address] mg tablet 14:16: daily. Hospit a 25 l tamsulosin 2018-0 Yes .4mg QD Take 0.4 Met hodi (FLOMAX) 4-[address] 0.4 mg 14:16: mouth Hospita capsule,ext 25 daily. l ended release 24hr amLODIPine 2018-0 Yes 5mg QD Take 5 mg Me thodi (NORVASC) 5 4-[address] mg tablet 14:16: daily. Hospit a 25 l tamsulosin 2018-0 Yes .4mg QD Take 0.4 Met hodi (FLOMAX) 4-[address] 0.4 mg 14:16: mouth Hospita capsule,ext 25 daily. l ended release 24hr amLODIPine 2018-0 Yes 5mg QD Take 5 mg Me thodi (NORVASC) 5 4-[address] mg tablet 14:16: daily. Hospit a 25 l tamsulosin 2018-0 Yes .4mg QD Take 0.4 Met hodi (FLOMAX) 4-[address] 0.4 mg 14:16: mouth Hospita capsule,ext 25 daily. l ended release 24hr amLODIPine 2018-0 Yes 5mg QD Take 5 mg Me thodi (NORVASC) 5 4-[address] mg tablet 14:16: daily. Hospit a 25 l tamsulosin 2018-0 Yes .4mg QD Take 0.4 Met hodi (FLOMAX) 4-[address] 0.4 mg 14:16: mouth Hospita capsule,ext 25 daily. l ended release 24hr atorvastati atorvastati No atorvastat [place] n 20 mg n 20 mg 5-17 in 20 mg Commu ni tablet tablet 00:00: [facility] No atorvastat [place] n 20 mg n 20 mg 5-17 in 20 mg Commu ni tablet Take tablet Take 00:00: tablet ty 1 tablet in 1 tablet in 00 Take 1 Hospita the evening the evening tablet in [facility] evening atorvastati Yes Univer s n 20 mg 5-17 ity of tablet 00:00: [address] atorvastati Yes Univer s n 20 mg 5-17 ity of tablet 00:00: [address] atorvastati Yes Univer s n 20 mg 5-17 ity of tablet 00:00: [address] atorvastati Yes Univer s n 20 mg 5-17 ity of tablet 00:00: [address] atorvastati Yes Univer s n 20 mg 5-17 ity of tablet 00:00: [address] atorvastati Yes Univer s n 20 mg 5-17 ity of tablet 00:00: [address] atorvastati Yes Univer s n 20 mg 5-17 ity of tablet 00:00: [address] amlodipine amlodipine No amlodipine [place] 10 mg 10 mg 10 mg Communi tablet TAKE tablet TAKE tablet ty 1 TABLET BY 1 TABLET BY TAKE 1 Hospita MOUTH ONCE MOUTH ONCE TABLET BY l DAILY DAILY MOUTH ONCE Clinics DAILY amlodipine amlodipine No amlodipine [place] 5 mg tablet 5 mg tablet 5 mg C ommuni TAKE 1 TAKE 1 tablet ty TABLET BY TABLET BY TAKE 1 Hos devonte MOUTH ONCE MOUTH ONCE TABLET BY l DAILY DAILY MOUTH ONCE Clinics DAILY clotrimazol clotrimazol No clotrimazo [place] e-betametha e-betametha le-betamet Communi sone 1 sone 1 hasone 1 ty %-0.05 % %-0.05 % %-0.05 % Hos devonte topical topical topical l cream APPLY cream APPLY cream Clinics TOPICALLY TOPICALLY APPLY TO THE TO THE TOPICALLY AFFECTED AFFECTED TO THE AND AND AFFECTED SURROUNDING SURROUNDING AND AREAS OF AREAS OF SURROUNDIN THE SKIN THE SKIN G AREAS OF TWICE A DAY TWICE A DAY THE SKIN IN THE IN THE TWICE A MORNING AND MORNING AND DAY IN THE EVENING FOR EVENING FOR MORNING 2 WEEKS 2 WEEKS AND EVENING FOR 2 WEEKS desonide desonide No desonide Swe marilyn 0.05 % 0.05 % 0.05 % Communi topical topical topical ty cream APPLY cream APPLY cream Hospita CREAM CREAM APPLY l TOPICALLY TOPICALLY CREAM Clin ics ONCE DAILY ONCE DAILY TOPICALLY ONCE DAILY Eliquis 2.5 Eliquis 2.5 No 1 BID Eliquis [place] mg tablet mg tablet 2.5 mg Com jelly Take 1 Take 1 tablet ty tablet tablet Take 1 Hospita twice a day twice a day tablet l by oral by oral twice a Clinic s route. route. day by oral route. ketoconazol ketoconazol No ketoconazo [place] e 2 % e 2 % le 2 % Communi shampoo shampoo shampoo ty APPLY APPLY APPLY Hospita TOPICALLY TOPICALLY TOPICALLY l TWICE A TWICE A TWICE A Clinic s WEEK, APPLY WEEK, APPLY WEEK, TO DAMP TO DAMP APPLY TO SKIN , SKIN , DAMP SKIN LATHER AND LATHER AND , LATHER LEAVE ON 5 LEAVE ON 5 AND LEAVE MINUTES MINUTES ON 5 THEN RINSE THEN RINSE MINUTES THEN RINSE omeprazole omeprazole No omeprazole [place] 20 mg 20 mg 20 mg Communi capsule,del capsule,del capsule,de ty ayed ayed layed Hospita release release release l TAKE 1 TAKE 1 TAKE 1 Clinics CAPSULE BY CAPSULE BY CAPSULE BY MOUTH ONCE MOUTH ONCE MOUTH ONCE DAILY DAILY DAILY BEFORE A BEFORE A BEFORE A MEAL MEAL MEAL tamsulosin tamsulosin No tamsulosin [place] 0.4 mg 0.4 mg 0.4 mg Communi capsule capsule capsule ty TAKE 2 TAKE 2 TAKE 2 Hospita CAPSULES BY CAPSULES BY CAPSULES l MOUTH ONCE MOUTH ONCE BY MOUTH Clinics DAILY 30 DAILY 30 ONCE DAILY MINUTES MINUTES 30 MINUTES AFTER THE AFTER THE AFTER THE SAME MEAL SAME MEAL SAME MEAL albuterol albuterol No 2puff(s Q4H albuterol [place] sulfate HFA sulfate HFA ) sulfate Communi 90 90 HFA 90 ty mcg/actuati mcg/actuati mcg/actuat Hospita on aerosol on aerosol ion l inhaler inhaler aerosol Clinic s Inhale 2 Inhale 2 inhaler puffs every puffs every Inhale 2 4 hours by 4 hours by puffs inhalation inhalation every 4 route. route. hours by inhalation route. amlodipine amlodipine No amlodipine [place] 5 mg tablet 5 mg tablet 5 mg C ommuni TAKE 1 TAKE 1 tablet ty TABLET BY TABLET BY TAKE 1 [facility] MOUTH ONCE MOUTH ONCE TABLET BY l DAILY DAILY MOUTH ONCE Clinics DAILY clotrimazol clotrimazol No clotrimazo [place] e-betametha e-betametha le-betamet Communi sone 1 sone 1 hasone 1 ty %-0.05 % %-0.05 % %-0.05 % [facility] topical topical topical l cream APPLY cream APPLY cream Clinics TOPICALLY TOPICALLY APPLY TO THE TO THE TOPICALLY AFFECTED AFFECTED TO THE AND AND AFFECTED SURROUNDING SURROUNDING AND AREAS OF AREAS OF SURROUNDIN THE SKIN THE SKIN G AREAS OF TWICE A DAY TWICE A DAY THE SKIN IN THE IN THE TWICE A MORNING AND MORNING AND DAY IN THE EVENING FOR EVENING FOR MORNING 2 WEEKS 2 WEEKS AND EVENING FOR 2 WEEKS desonide desonide No desonide Swe [facility] 0.05 % 0.05 % 0.05 % [facility]i topical topical topical ty cream APPLY cream APPLY cream Hospita CREAM CREAM APPLY l TOPICALLY TOPICALLY CREAM Clin ics ONCE DAILY ONCE DAILY TOPICALLY ONCE DAILY Eliquis 2.5 Eliquis 2.5 No 1 BID Eliquis [place] mg tablet mg tablet 2.5 mg Com jelly Take 1 Take 1 tablet ty tablet tablet Take 1 Hospita twice a day twice a day tablet l by oral by oral twice a Clinic s route. route. day by oral route. ketoconazol ketoconazol No ketoconazo [place] e 2 % e 2 % le 2 % Communi shampoo shampoo shampoo ty APPLY APPLY APPLY Hospita TOPICALLY TOPICALLY TOPICALLY l TWICE A TWICE A TWICE A Clinic s WEEK, APPLY WEEK, APPLY WEEK, TO DAMP TO DAMP APPLY TO SKIN , SKIN , DAMP SKIN LATHER AND LATHER AND , LATHER LEAVE ON 5 LEAVE ON 5 AND LEAVE MINUTES MINUTES ON 5 THEN RINSE THEN RINSE MINUTES THEN RINSE meloxicam meloxicam No 1 Q1D meloxicam [place] 15 mg 15 mg 15 mg Communi tablet Take tablet Take tablet ty 1 tablet 1 tablet Take 1 Hospi ta every day every day tablet l by oral by oral every day Clin ics route. route. by oral route. omeprazole omeprazole No omeprazole [place] 20 mg 20 mg 20 mg Communi capsule,del capsule,del capsule,de ty ayed ayed layed Hospita release release release l TAKE 1 TAKE 1 TAKE 1 Clinics CAPSULE BY CAPSULE BY CAPSULE BY MOUTH ONCE MOUTH ONCE MOUTH ONCE DAILY DAILY DAILY BEFORE A BEFORE A BEFORE A MEAL MEAL MEAL tamsulosin tamsulosin No tamsulosin [place] 0.4 mg 0.4 mg 0.4 mg Communi capsule capsule capsule ty TAKE 2 TAKE 2 TAKE 2 Hospita CAPSULES BY CAPSULES BY CAPSULES l MOUTH ONCE MOUTH ONCE BY MOUTH Clinics DAILY 30 DAILY 30 ONCE DAILY MINUTES MINUTES 30 MINUTES AFTER THE AFTER THE AFTER THE SAME MEAL SAME MEAL SAME MEAL albuterol albuterol No albuterol [place] sulfate HFA sulfate HFA sulfate Communi 90 90 HFA 90 ty mcg/actuati mcg/actuati mcg/actuat Hospita on aerosol on aerosol ion l inhaler inhaler aerosol Clinic s Inhale 2 Inhale 2 inhaler puffs every puffs every Inhale 2 4 hours by 4 hours by puffs inhalation inhalation every 4 route. route. hours by inhalation route. amlodipine amlodipine No amlodipine [place] 10 mg 10 mg 10 mg Communi tablet TAKE tablet TAKE tablet ty 1 TABLET BY 1 TABLET BY TAKE 1 Hospita MOUTH ONCE MOUTH ONCE TABLET BY l DAILY DAILY MOUTH ONCE Clinics DAILY atorvastati atorvastati No atorvastat [place] n 20 mg n 20 mg in 20 mg Commu ni tablet Take tablet Take tablet ty 1 tablet in 1 tablet in Take 1 Hospita the evening the evening tablet in l the Clinics evening clotrimazol clotrimazol No clotrimazo [place] e-betametha e-betametha le-betamet Communi sone 1 sone 1 hasone 1 ty %-0.05 % %-0.05 % %-0.05 % [facility] topical topical topical l cream APPLY cream APPLY cream Clinics TOPICALLY TOPICALLY APPLY TO THE TO THE TOPICALLY AFFECTED AFFECTED TO THE AND AND AFFECTED SURROUNDING SURROUNDING AND AREAS OF AREAS OF SURROUNDIN THE SKIN THE SKIN G AREAS OF TWICE A DAY TWICE A DAY THE SKIN IN THE IN THE TWICE A MORNING AND MORNING AND DAY IN THE EVENING FOR EVENING FOR MORNING 2 WEEKS 2 WEEKS AND EVENING FOR 2 WEEKS desonide desonide No desonide Swe marilyn 0.05 % 0.05 % 0.05 % [facility]i topical topical topical ty cream APPLY cream APPLY cream Hospita CREAM CREAM APPLY l TOPICALLY TOPICALLY CREAM Clin ics ONCE DAILY ONCE DAILY TOPICALLY ONCE DAILY Eliquis 2.5 Eliquis 2.5 No 1 BID Eliquis [place] mg tablet mg tablet 2.5 mg Com jelly Take 1 Take 1 tablet ty tablet tablet Take 1 Hospita twice a day twice a day tablet l by oral by oral twice a Clinic s route. route. day by oral route. ketoconazol ketoconazol No ketoconazo [place] e 2 % e 2 % le 2 % Communi shampoo shampoo shampoo ty APPLY APPLY APPLY Hospita TOPICALLY TOPICALLY TOPICALLY l TWICE A TWICE A TWICE A Clinic s WEEK, APPLY WEEK, APPLY WEEK, TO DAMP TO DAMP APPLY TO SKIN , SKIN , DAMP SKIN LATHER AND LATHER AND , LATHER LEAVE ON 5 LEAVE ON 5 AND LEAVE MINUTES MINUTES ON 5 THEN RINSE THEN RINSE MINUTES THEN RINSE meloxicam meloxicam No meloxicam [place] 15 mg 15 mg 15 mg Communi tablet Take tablet Take tablet ty 1 tablet 1 tablet Take 1 Hospi ta every day every day tablet l by oral by oral every day Clin ics route. route. by oral route. atorvastati atorvastati No 1 Q1D atorvastat [place] n 20 mg n 20 mg in 20 mg Famil y tablet Take tablet Take tablet Practic 1 tablet 1 tablet Take 1 e every day every day tablet by oral by oral every day route. route. by oral route. Myrbetriq Myrbetriq No Myrbetriq [place] 50 mg 50 mg 50 mg Communi tablet,exte tablet,exte tablet,ext ty nded nded ended Hospita release release release l TAKE 1 TAKE 1 TAKE 1 Clinics TABLET BY TABLET BY TABLET BY MOUTH ONCE MOUTH ONCE MOUTH ONCE DAILY (DO DAILY (DO DAILY (DO NOT CRUSH NOT CRUSH NOT CRUSH OR CHEW) OR CHEW) OR CHEW) Eliquis 5 Eliquis 5 No 1 BID Eliquis 5 [facility] mg tablet mg tablet mg tablet Family Take 1 Take 1 Take 1 Practic tablet tablet tablet e twice a day twice a day twice a by oral by oral day by route. route. oral route. omeprazole omeprazole No omeprazole [place] 20 mg 20 mg 20 mg Communi capsule,del capsule,del capsule,de ty ayed ayed layed [facility]ospita release release release l TAKE 1 TAKE 1 TAKE 1 Clinics CAPSULE BY CAPSULE BY CAPSULE BY MOUTH ONCE MOUTH ONCE MOUTH ONCE DAILY DAILY DAILY BEFORE A BEFORE A BEFORE A MEAL MEAL MEAL omeprazole omeprazole No 1capsul Q1D omeprazole [place] 20 mg 20 mg e(s) 20 mg Family capsule,del capsule,del capsule,de Practic ayed ayed layed e release release release Take 1 Take 1 Take 1 capsule capsule capsule every day every day every day by oral by oral by oral route. route. route. tamsulosin tamsulosin No tamsulosin [place] 0.4 mg 0.4 mg 0.4 mg Communi capsule capsule capsule ty TAKE 2 TAKE 2 TAKE 2 Hospita CAPSULES BY CAPSULES BY CAPSULES l MOUTH ONCE MOUTH ONCE BY MOUTH Clinics DAILY 30 DAILY 30 ONCE DAILY MINUTES MINUTES 30 MINUTES AFTER THE AFTER THE AFTER THE SAME MEAL SAME MEAL SAME MEAL ramipril 10 ramipril 10 No 1capsul Q1D ramipril [place] mg capsule mg capsule e(s) 10 mg Fa xavi Take 1 Take 1 capsule Practic capsule capsule Take 1 e every day every day capsule by oral by oral every day route. route. by oral route. acetaminoph acetaminoph No acetaminop [place] en 300 en 300 hen 300 Communi mg-codeine mg-codeine mg-codeine ty 30 mg 30 mg 30 mg Hospita tablet TAKE tablet TAKE tablet l 1 TABLET BY 1 TABLET BY TAKE 1 Clinics MOUTH EVERY MOUTH EVERY TABLET BY 4 HOURS 4 HOURS MOUTH NEEDED FOR NEEDED FOR EVERY 4 PAIN (SCALE PAIN (SCALE HOURS 4-6) OR 4-6) OR NEEDED FOR PAIN (SCALE PAIN (SCALE PAIN 7-10) 7-10) (SCALE 4-6) OR PAIN (SCALE 7-10) tamsulosin tamsulosin No 1capsul Q1D tamsulosin [place] 0.4 mg 0.4 mg e(s) 0.4 mg Family capsule capsule capsule Practi c Take 1 Take 1 Take 1 e capsule capsule capsule every day every day every day by oral by oral by oral route. route. route. amlodipine amlodipine No amlodipine [place] 5 mg tablet 5 mg tablet 5 mg C ommuni Take 1 Take 1 tablet ty tablet QD tablet QD Take 1 [facility] PO PO tablet QD l PO Clinics Vesicare 10 Vesicare 10 No 1 Q1D Vesicare [place] mg tablet mg tablet 10 mg Fami ly Take 1 Take 1 tablet Practic tablet tablet Take 1 e every day every day tablet by oral by oral every day route. route. by oral route. atorvastati atorvastati No atorvastat [place] n 20 mg n 20 mg in 20 mg Commu ni tablet Take tablet Take tablet ty 1 tablet 1 tablet Take 1 Hospi ta daily by daily by tablet l mouth mouth daily by Clinics mouth amlodipine amlodipine No 1 Q1D amlodipine [place] 5 mg tablet 5 mg tablet 5 mg F amily Take 1 Take 1 tablet Pract[facility] tablet tablet Take 1 e every day every day tablet by oral by oral every day route. route. by oral route. desonide desonide No desonide Swe mar[facility] 0.05 % 0.05 % 0.05 % [facility] topical topical topical ty cream Apply cream Apply cream Hospita daily daily Apply l daily Clinics Eliquis 2.5 Eliquis 2.5 No 1 BID Eliquis [place] mg tablet mg tablet 2.5 mg Com jelly Take 1 Take 1 tablet ty tablet tablet Take 1 Hospita twice a day twice a day tablet l by oral by oral twice a Clinic s route. route. day by oral route. ketoconazol ketoconazol No ketoconazo [place] e 2 % e 2 % le 2 % Communi shampoo shampoo shampoo ty Apply Apply Apply Hospita topically topically topically l twice a twice a twice a Clinic s week , week , week , apply to apply to apply to damp skin, damp skin, damp skin, lather and lather and lather and leave on 5 leave on 5 leave on 5 min then min then min then rinse rinse rinse omeprazole omeprazole No omeprazole [place] 20 mg 20 mg 20 mg Commun[facility] capsule,del capsule,del capsule,de ty ayed ayed layed Hospita release release release l Take 1 Take 1 Take 1 Clinics tablet tablet tablet daily by daily by daily by mouth mouth mouth tamsulosin tamsulosin No tamsulosin [place] 0.4 mg 0.4 mg 0.4 mg Communi capsule capsule capsule ty TAKE 2 TAKE 2 TAKE 2 Hospita CAPSULES BY CAPSULES BY CAPSULES l MOUTH ONCE MOUTH ONCE BY MOUTH Clinics DAILY 30 DAILY 30 ONCE DAILY MINUTES MINUTES 30 MINUTES AFTER THE AFTER THE AFTER THE SAME MEAL SAME MEAL SAME MEAL Immunizations Ordered Immunization Filled Immunization Date Status Commen ts Source Name Name influenza, influenza, 2020-12-14 Completed [facility] [facility] injectable, injectable, 00:00:00 [facility] quadrivalent quadrivalent influenza, influenza, 2020-12-14 Completed [place] [facility] injectable, injectable, 00:00:00 [facility] nics quadrivalent quadrivalent influenza, influenza, 2020-12-14 Completed [place] [facility] injectable, injectable, 00:00:00 [facility] quadrivalent quadrivalent COVID-19 COVID-19 2020-09-10 Completed [place] [facility] (SARS-COV-2) (SARS-COV-2) 00:00:00 [facility] linics vaccine, unspecified vaccine, unspecified COVID-19 COVID-19 2020-09-10 Completed [place] [facility] (SARS-COV-2) (SARS-COV-2) 00:00:00 [facility] linics vaccine, unspecified vaccine, unspecified COVID-19 COVID-19 2020-09-10 Completed [place] [facility] (SARS-COV-2) (SARS-COV-2) 00:00:00 [facility] lin[facility] vaccine, unspecified vaccine, unspecified COVID-19, mRNA, COVID-19, mRNA, 2020-08-11 Completed [facility] LNP-S, PF, 100 LNP-S, PF, 100 00:00:00 [facility] mcg/0.5 mL dose mcg/0.5 mL dose (Moderna) (Moderna) COVID-19, mRNA, COVID-19, mRNA, 2020-08-11 Completed [facility] LNP-S, PF, 100 LNP-S, PF, 100 00:00:00 [facility] Clin[facility] mcg/0.5 mL dose mcg/0.5 mL dose (Moderna) (Moderna) COVID-19, mRNA, COVID-19, mRNA, 2020-08-11 Completed [facility] LNP-S, PF, 100 LNP-S, PF, 100 00:00:00 [facility] Clin[facility] mcg/0.5 mL dose mcg/0.5 mL dose (Moderna) (Moderna) influenza, influenza, 2020-02-14 Completed [place] [facility] injectable, injectable, 00:00:00 Hospital Cli [facility] quadrivalent quadrivalent influenza, influenza, 2020-02-14 Completed [place] [facility] injectable, injectable, 00:00:00 Hospital Cli nics quadrivalent quadrivalent influenza, influenza, 2020-02-14 Completed [place] [facility] injectable, injectable, 00:00:00 Hospital Cli nics quadrivalent quadrivalent influenza, influenza, 2019-05-16 Completed [facility] injectable, injectable, 00:00:00 Practice quadrivalent quadrivalent influenza, influenza, 2019-04-24 Completed [place] [facility] injectable, injectable, 00:00:00 Hospital Cli nics quadrivalent quadrivalent influenza, influenza, 2019-04-24 Completed [place] [facility] injectable, injectable, 00:00:00 Hospital Cli nics quadrivalent quadrivalent influenza, influenza, 2019-04-24 Completed [place] [facility] injectable, injectable, 00:00:00 Hospital Cli nics quadrivalent quadrivalent influenza, influenza, 2018-05-16 Completed [facility] injectable, injectable, 00:00:00 Practice quadrivalent quadrivalent influenza, influenza, 2018-03-16 Completed [place] [facility] injectable, injectable, 00:00:00 Hospital Cli nics quadrivalent quadrivalent influenza, influenza, 2018-03-16 Completed [place] [facility] injectable, injectable, 00:00:00 Hospital Cli nics quadrivalent quadrivalent influenza, influenza, 2018-03-16 Completed [place] [facility] injectable, injectable, 00:00:00 Hospital Cli nics quadrivalent quadrivalent Tdap Tdap 2014-04-25 Completed [place] [facility] 00:00:00 Hospital [facility] Tdap Tdap 2014-04-25 Completed [place] [facility] 00:00:00 Hospital [facility] cs Tdap Tdap 2014-04-25 Completed [place] [facility] 00:00:00 Hospital Clini cs Vital Signs Vital Name Observation Time Observation Value Comments Source BP Diastolic 2022-03-11 00:00:00 72 mm[Hg] [facility] Height 2022-03-11 00:00:00 68.5 [in_i] [facility] BMI (Body Mass 2022-03-11 00:00:00 26.8 kg/m2 [facility]) [facility] BP Systolic 2022-03-11 00:00:00 118 mm[Hg] [facility] Body Weight 2022-03-11 00:00:00 2864 [oz_av] [facility] BP Diastolic 2021-11-03 00:00:00 62 mm[Hg] [facility] Height 2021-11-03 00:00:00 68.5 [in_i] [facility] BMI (Body Mass 2021-11-03 00:00:00 26.5 kg/m2 [facility]) [facility] s BP Systolic 2021-11-03 00:00:00 104 mm[Hg] [facility] Body Weight 2021-11-03 00:00:00 2832 [oz_av] [facility] Height 2021-09-25 00:00:00 68.5 [in_i] [facility] BP Diastolic 2021-08-06 00:00:00 78 mm[Hg] [facility] Height 2021-08-06 00:00:00 68.5 [in_i] [facility] s BMI (Body Mass 2021-08-06 00:00:00 26.7 kg/m2 [facility] BP Systolic 2021-08-06 00:00:00 114 mm[Hg] [facility] Body Weight 2021-08-06 00:00:00 2848 [oz_av] [facility] Body height 2021-05-14 15:06:00 172.7 cm [facility] Body weight 2021-05-14 15:06:00 79.379 kg [facility] BMI 2021-05-14 15:06:00 26.61 kg/m2 [facility] Procedures Procedure Date / Time Performing Clinician Source Performed AUTHORIZATION FOR RELEASE 2021-12-04 05:01:00 Doctor Unajonathanigned, [facility] Name Medical Victor XR, chest, 2 view 2021-11-03 00:00:[address] [facility] CT, brain, w/o contrast 2021-11-03 00:00:00 [facility] PHYSICIAN ORDERS 2021-07-23 06:01:00 Doctor Venita, [facility] Name Medical Branch REFERRAL- REQUEST/RESPONSE 2021-07-07 06:01:00 Doctor Venita , [facility] US RETROPERITONEUM 2021-06-15 16:00:00 [facility] RETROPERITONEUM 2021-06-15 16:00:00 [facility] INSURANCE CORRESPONDENCE 2021-05-06 06:01:00 Doctor Venita, [facility] Knee reoperations [facility] Knee Surgery [facility] Surgical Procedure on [facility] Cervical Spine Practice Inguinal Hernioplasty [facility] Operative Procedure on [facility] Procedure on Spleen [facility] Plan of Care Planned Activity Planned Date Details Comments Source Future Scheduled Test 2022-06-10 COVID-19 VACCINE (#1) [facility] 03:41:56 [code = COVID-19 VACCINE (#1)] Future Scheduled Test 2022-06-10 SHINGLES VACCINES (1 [facility] 03:41:56 of 2) [code = SHINGLES VACCINES (1 of 2)] Future Scheduled Test 2022-06-10 65+ PNEUMOCOCCAL [facility] 03:41:56 VACCINE (1 - PCV) [code = 65+ PNEUMOCOCCAL VACCINE (1 - PCV)] Future Scheduled Test 2022-06-10 INFLUENZA VACCINE [facility] 03:41:56 [code = INFLUENZA VACCINE] Future Scheduled Test 2022-06-10 COVID-19 VACCINE (#1) [facility] 03:41:56 [code = COVID-19 VACCINE (#1)] Future Scheduled Test 2022-06-10 SHINGLES VACCINES (1 [facility] 03:41:56 of 2) [code = SHINGLES VACCINES (1 of 2)] Future Scheduled Test 2022-06-10 65+ PNEUMOCOCCAL [facility] 03:41:56 VACCINE (1 - PCV) [code = 65+ PNEUMOCOCCAL VACCINE (1 - PCV)] Future Scheduled Test 2022-06-10 INFLUENZA VACCINE [facility] 03:41:56 [code = INFLUENZA VACCINE] Future Scheduled Test 2022-06-03 COVID-19 VACCINE (#1) [facility] 10:51:39 [code = COVID-19 VACCINE (#1)] Future Scheduled Test 2022-06-03 SHINGLES VACCINES (1 [facility] 10:51:39 of 2) [code = SHINGLES VACCINES (1 of 2)] Future Scheduled Test 2022-06-03 65+ PNEUMOCOCCAL [facility] 10:51:39 VACCINE (1 - PCV) [code = 65+ PNEUMOCOCCAL VACCINE (1 - PCV)] Future Scheduled Test 2022-06-03 INFLUENZA VACCINE [facility] 10:51:39 [code = INFLUENZA VACCINE] Future Scheduled Test 2022-06-03 COVID-19 VACCINE (#1) [facility] 10:51:39 [code = COVID-19 VACCINE (#1)] Future Scheduled Test 2022-06-03 SHINGLES VACCINES (1 [facility] 10:51:39 of 2) [code = SHINGLES VACCINES (1 of 2)] Future Scheduled Test 2022-06-03 65+ PNEUMOCOCCAL [facility] 10:51:39 VACCINE (1 - PCV) [code = 65+ PNEUMOCOCCAL VACCINE (1 - PCV)] Future Scheduled Test 2022-06-03 INFLUENZA VACCINE [facility] 10:51:39 [code = INFLUENZA VACCINE] Future Scheduled Test 2022-05-04 COVID-19 VACCINE (#1) [facility] 10:11:22 [code = COVID-19 VACCINE (#1)] Future Scheduled Test 2022-05-04 SHINGLES VACCINES (1 [facility] 10:11:22 of 2) [code = SHINGLES VACCINES (1 of 2)] Future Scheduled Test 2022-05-04 65+ PNEUMOCOCCAL [facility] 10:11:22 VACCINE (1 - PCV) [code = 65+ PNEUMOCOCCAL VACCINE (1 - PCV)] Future Scheduled Test 2022-05-04 INFLUENZA VACCINE [facility] 10:11:22 [code = INFLUENZA VACCINE] Future Scheduled Test 2022-05-04 COVID-19 VACCINE (#1) [facility] 10:11:22 [code = COVID-19 VACCINE (#1)] Future Scheduled Test 2022-05-04 SHINGLES VACCINES (1 [facility] 10:11:22 of 2) [code = SHINGLES VACCINES (1 of 2)] Future Scheduled Test 2022-05-04 65+ PNEUMOCOCCAL [facility] 10:11:22 VACCINE (1 - PCV) [code = 65+ PNEUMOCOCCAL VACCINE (1 - PCV)] Future Scheduled Test 2022-05-04 INFLUENZA VACCINE [facility] 10:11:22 [code = INFLUENZA VACCINE] Future Scheduled Test 2022-03-05 HEPATITIS B VACCINES [facility] 16:21:11 (1 of 3 - 3-dose series) [code = HEPATITIS B VACCINES (1 of 3 - 3-dose series)] Future Scheduled Test 2022-03-05 COVID-19 VACCINE (#1) [facility] 16:21:11 [code = COVID-19 VACCINE (#1)] Future Scheduled Test 2022-03-05 SHINGLES VACCINES (1 [facility] 16:21:11 of 2) [code = SHINGLES VACCINES (1 of 2)] Future Scheduled Test 2022-03-05 65+ PNEUMOCOCCAL [facility] 16:21:11 VACCINE (1 - PCV) [code = 65+ PNEUMOCOCCAL VACCINE (1 - PCV)] Future Scheduled Test 2022-03-05 INFLUENZA VACCINE [facility] 16:21:11 [code = INFLUENZA VACCINE] Future Scheduled Test 2022-03-05 HEPATITIS B VACCINES [facility] 16:21:11 (1 of 3 - 3-dose series) [code = HEPATITIS B VACCINES (1 of 3 - 3-dose series)] Future Scheduled Test 2022-03-05 COVID-19 VACCINE (#1) [facility] 16:21:11 [code = COVID-19 VACCINE (#1)] Future Scheduled Test 2022-03-05 SHINGLES VACCINES (1 [facility] 16:21:11 of 2) [code = SHINGLES VACCINES (1 of 2)] Future Scheduled Test 2022-03-05 65+ PNEUMOCOCCAL [facility] 16:21:11 VACCINE (1 - PCV) [code = 65+ PNEUMOCOCCAL VACCINE (1 - PCV)] Future Scheduled Test 2022-03-05 INFLUENZA VACCINE [facility] 16:21:11 [code = INFLUENZA VACCINE] Future Scheduled Test 2022-03-05 HEPATITIS B VACCINES [facility] 16:21:11 (1 of 3 - 3-dose series) [code = HEPATITIS B VACCINES (1 of 3 - 3-dose series)] Future Scheduled Test 2022-03-05 COVID-19 VACCINE (#1) [facility] 16:21:11 [code = COVID-19 VACCINE (#1)] Future Scheduled Test 2022-03-05 SHINGLES VACCINES (1 [facility] 16:21:11 of 2) [code = SHINGLES VACCINES (1 of 2)] Future Scheduled Test 2022-03-05 65+ PNEUMOCOCCAL [facility] 16:21:11 VACCINE (1 - PCV) [code = 65+ PNEUMOCOCCAL VACCINE (1 - PCV)] Future Scheduled Test 2022-03-05 INFLUENZA VACCINE [facility] 16:21:11 [code = INFLUENZA VACCINE] Future Scheduled Test 2022-01-13 HEPATITIS B VACCINES [facility] 13:41:30 (1 of 3 - 3-dose series) [code = HEPATITIS B VACCINES (1 of 3 - 3-dose series)] Future Scheduled Test 2022-01-13 COVID-19 VACCINE (#1) [facility] 13:41:30 [code = COVID-19 VACCINE (#1)] Future Scheduled Test 2022-01-13 SHINGLES VACCINES (1 [facility] 13:41:30 of 2) [code = SHINGLES VACCINES (1 of 2)] Future Scheduled Test 2022-01-13 65+ PNEUMOCOCCAL [facility] 13:41:30 VACCINE (1 - PCV) [code = 65+ PNEUMOCOCCAL VACCINE (1 - PCV)] Future Scheduled Test 2022-01-13 INFLUENZA VACCINE [facility] 13:41:30 [code = INFLUENZA VACCINE] Diagnostic Test 2021-09-25 rapid SARS CoV 2 Ag, [facility] Pending 00:00:00 QL IA, respiratory Hospital Clinics specimen [code = rapid SARS CoV 2 Ag, QL IA, respiratory specimen] Instructions [facility] Encounters Start End Encounter Admission Attending Care Care Encounter Source Date/Time Date/Time Type Type Clinicians Facility Department ID 2022-07-22 Outpatient [facility] [id number] [place] 04:18:07 [facility] 2022-05-13 Outpatient [facility] [id number] [place] 04:11:34 [facility] 2022-05-11 Outpatient [facility] [id number] [place] 10:24:30 [facility] 2021-12-07 Outpatient FRONTERA, [facility] [id number] [place] 01:04:26 SHAQUILLE [facility] 2021-09-28 Outpatient Pant, [facility] [id number] Common 09:25:14 Coco [facility] 2021-09-14 Outpatient FRONTERA, [facility] [id number] [place] 01:03:28 SHAQUILLE [facility] 2021-09-10 Outpatient [facility] [id number] [place] 11:47:39 [facility] 2021-09-09 Outpatient [facility] [id number] [place] 12:29:58 [facility] 2021-09-08 Outpatient [facility] [id number] [place] 11:03:08 [facility] 2021-09-01 Outpatient [facility] [id number] [place] 09:00:00 [id number] [facility] 2021-07-09 Inpatient Lizzie, [facility] [id number] [facility] 13:55:00 Rox Painter 2022-05-12 2022-05-12 External Frontamirah, EXT MSRDP 1.2.840.114 [id number] [place] 09:00:00 09:30:00 Contact Shaquille RUSSO 350.1.13.58 H [facility] 9.2.7.2.686 [id number] 2022-03-11 2022-03-11 Outpatient ERICKSON_R [facility] [id number] [place] 00:00:00 00:00:00 027 Commun i ty [facility]osp[facility] 2022-03-11 2022-03-11 Faraz [facility] [place] 00:00:00 00:00:00 [facility] DO: [address] [facility] [address], HOSPITAL Clinic s [place], [place] CL[place]IC, [address] NADIA , Ph. [phone] 2022-01-22 2022-01-22 Outpatient ERICKSON_R [facility] [id number] - [place] 00:00:00 00:00:00 909 Commun i ty Hospita l [facility] 2021-12-04 2021-12-04 Orders Doctor ROX [id number] [place] [address] 00:00:00 00:00:00 Only Unassigned, GUIDO 350.1.13.10 ity of [place] [facility] 4.2.7.2.686 Cory as [phone] [place] [address] [place] 2021-11-03 2021-11-03 Outpatient ERICKSON_R [facility] [id number] - [place] 09:36:00 09:36:00 621 Commun i ty Hospita l [facility] 2021-11-03 2021-11-03 Faraz [facility] [place] 00:00:00 00:00:00 [facility] DO: [address] [place], [address] NADIA , Ph. [phone] 2021-11-03 2021-11-03 Outpatient Nadia [facility] [id number] 00:00:00 00:00:00 Faraz [id number] Karthik [id number] 2021-10-26 2021-10-26 Outpatient [facility] [id number] [place] 08:45:00 08:45:00 Health 2021-09-25 2021-09-25 Outpatient ERICKSON_R [facility] [id number] [place] 01:02:00 01:02:00 513 Commun i ty Hospita l Clinics 2021-09-25 2021-09-25 Outpatient ERICKSON_R [facility] [id number] [place] 01:02:00 01:02:00 523 Commun i ty Hospita l Clinics 2021-09-25 2021-09-25 Outpatient Nadia [facility] [id number] 00:00:00 00:00:00 Faraz [id number] Karthik [id number] 2021-09-25 2021-09-25 Faraz [facility] [place] 00:00:00 00:00:00 Karthik [facility] DO: [address] [place], [address] NADIA , Ph. 2021-09-22 2021-09-22 Outpatient ERICKSON_R [facility] [id number] [place] 08:19:00 08:19:00 510 Commun i ty Hospita l Clinics 2021-09-04 2021-09-04 Outpatient Elective Lizzie [facility] [id number] [facility] 06:22:00 10:38:00 Rox Carlos 2021-08-20 2021-08-20 Outpatient Brook APARICIO [facility] [id number] [facility] 08:00:00 08:00:00 NATALIA ity of [facility] 2021-08-18 2021-08-18 Outpatient [facility] [id number] [facility] 08:10:00 08:10:00 14 2021-08-18 2021-08-18 Outpatient Elective Lizzie, [facility] [id number] [facility] 08:10:00 08:10:00 Rox 14 2021-08-06 2021-08-06 Outpatient ERICKSON_R [facility] [id number] [place] 12:49:00 12:49:00 324 Commun i ty Hospita Clinics 2021-08-06 2021-08-06 Outpatient Nadia [facility] [id number] 00:00:00 00:00:00 Faraz [id number] Karthik [id number] 2021-08-06 2021-08-06 Faraz [facility] [place] 00:00:00 00:00:00 [facility] DO: [address] Hospit a [facility] [address], HOSPITAL Clinic s [place], [place] CLINIC, [address] NADIA , Ph. 2021-07-23 2021-07-23 Orders Doctor ROX [id number] [id number] 00:00:00 00:00:00 Only Unassigned, GUIDO 350.1.13.10 ity of [place] [facility] 4.2.7.2.686 Cory as [phone] [address] 2021-07-09 2021-07-09 Telephone Neeru KYJR [id number] [facility] 00:00:00 00:00:00 [facility] 350.1.13.10 it y of [place] 4.2.7.2.686 Cory as PITER?BLEA [phone] [address] MEDICAL OFFICE BUILDING 2021-07-08 2021-07-08 Outpatient ERICKSON_R [facility] [id number] [place] 10:42:00 10:42:00 223 Commun i ty Hospita l Clinics 2021-07-08 2021-07-08 Outpatient NADIA_R [facility] [id number] [place] 10:42:00 10:42:00 224 Commun i ty Hospita l Clinics 2021-07-07 2021-07-07 Orders Doctor ROX 1.2.840.114 [id number] [facility] 00:00:00 00:00:00 Only Unassigned, GUIDO 350.1.13.10 [facility] 4.2.7.2.686 Cory as [phone] [address] 2021-06-25 2021-06-25 Outpatient Elective Bertluis, [facility] [id number] [facility] 09:11:00 09:12:00 Rox 07 2021-06-25 2021-06-25 Outpatient [facility] [id number] [facility] 09:11:00 09:11:00 07 2021-06-15 2021-06-15 Office Frontera, EXT MSRDP 1.2.840.114 [id number] [place] 08:15:00 08:45:00 Visit Shaquille E LOCATION 350.1.13.58 H [place] 9.2.7.2.686 [id number] 2021-06-15 2021-06-15 Office Frontera, EXT MSRDP 1.2.840.114 [id number] [place] 08:15:00 08:45:00 Visit Shaquille E LOCATION 350.1.13.58 H ealth 9.2.7.2.686 [id number] 2021-06-12 2021-06-12 Telephone FABRICIO Dietz [id number] [id number] [facility] 00:00:00 00:00:00 [facility] 350.1.13.10 it y of [place] 4.2.7.2.686 Cory as PITER?BLEA [phone] [address] OFFICE [facility] 2021-05-14 2021-05-14 Office FABRICIO Dietz 1.2.840.[id number] [place] [address] 09:00:00 09:15:00 Visit Vinita [facility] 350.1.13.10 it y [facility] 4.2.7.2.686 Cory as PITER?BLEA [phone] Ri paula [place] [address] [place] [address] MEDICAL OFFICE BUILDING 2021-05-14 2021-05-14 Outpatient Brook DIETZ [facility] [id number] [facility] 09:00:00 09:00:00 VINITA ity of [facility] 2021-05-14 2021-05-14 Letter Doctor ROX 1.2.840.114 [id number] [facility] 00:00:00 00:00:00 (Out) Unassigned, GUIDO 350.1.13.10 ity of [place] [facility] 4.2.7.2.686 Cory as [phone] [address] 2021-05-14 2021-05-14 Letter Doctor ROX 1.2.840.114 [id number] Univers 00:00:00 00:00:00 (Out) Unassigned, GUIDO 350.1.13.10 ity of [place] [facility] 4.2.7.2.686 Cory as [phone] [address] 2021-05-13 2021-05-13 Outpatient ERICKSON_R [facility] [id number] - [place] 09:30:00 09:30:00 229 Commun i ty Hospita l Clinics 2021-05-13 2021-05-13 Outpatient ERICKSON_R [facility] 7415 - [place] 09:30:00 09:30:00 121 Commun i ty Hospita l Clinics 2021-05-06 2021-05-06 Orders Doctor ROX 1.2.840.114 [id number] Univers 00:00:00 00:00:00 Only Unassigned, GUIDO 350.1.13.10 ity of [place] [facility]OS[facility]ITAL 4.2.7.2.686 Cory as [phone] [address] 2020-10-30 2020-10-30 Outpatient Miller_S_AH VFP VFP [id number] [id number] [facility] 02:31:00 02:31:00 [id number] Family Practic e 2020-08-28 2020-08-28 Outpatient Rebekah-Mbayo VFP VFP 791 [id number] [facility] 06:09:00 06:09:00 _A_AH 89766 Family Practic e 2020-08-25 2020-08-25 Outpatient Rebekah-Mbayo VFP VFP [id number] [facility] 05:48:00 05:48:00 _A_AH 08902 Family Practic e 2020-08-22 2020-08-22 Outpatient Rebekah-Mbayo VFP VFP [phone] [facility] 05:31:00 05:31:00 _A_AH 72961 Family Practic e 2020-08-22 2020-08-22 Nidia VFP [place] - [id number] V illage 00:00:00 00:00:00 RebekahKusum [facility] Alex kaur EXTERMINATOR: Medical - Practi c [address] [email or web address], [place] [address], [place] [address] , Ph. 2019-11-17 2019-11-17 Outpatient Rebekah-Mbayo VFP VFP [phone] [facility] 12:13:00 12:13:00 _A_AH 99557 Family Practic e 2019-11-17 2019-11-17 Outpatient Rebekah-Mbayo VFP VFP [phone] [facility] 12:13:00 12:13:00 _A_AH 67989 Family Practic e 2019-11-06 2019-11-06 Outpatient Rebekah-Mbayo VFP VFP [phone] [facility] 01:13:00 01:13:00 _A_AH 55753 Family Practic e 2019-10-12 2019-10-12 Outpatient Rebekah-Mbayo VFP VFP [phone] [facility] 02:56:00 02:56:00 _A_AH 37610 Family Practic e 2019-10-11 2019-10-11 Outpatient Rebekah-Mbayo VFP VFP [phone] [facility] 07:18:00 07:18:00 _A_AH 18927 Family Practic e 2019-09-24 2019-09-24 Outpatient Rebekah-Mbayo VFP VFP [phone] [facility] 10:59:00 10:59:00 _A_AH 01550 Family Practic e 2019-09-20 2019-09-20 Outpatient Nilo [facility] [id number] [facility] 10:26:00 10:26:00 _A_AH 19574 Family Practic e 2019-09-17 2019-09-17 Nidia [facility] [place] - [id number] V illage 00:00:00 00:00:00 [facility] Fam brandi kaur, EXTERMINATOR: Medical - Practi c [address] [email or web address], [address], [place] [address] , Ph. 2019-08-08 2019-08-08 Outpatient Nilo [place] [id number] [facility] 01:06:00 01:06:00 _A_AH 69820 Family Practic e 2015-08-27 2015-08-27 Outpatient IE JESSICA [id number] [facility] 14:00:00 14:00:00 03 jamey Villareal 2015-07-10 2015-07-10 Outpatient IE JESSICA [id number] [facility] 10:30:00 10:30:00 02 l Mono 2015-03-20 2015-03-20 Outpatient [facility] [id number] [facility] 12:00:00 12:00:00 01 jamey Villareal 2015-02-05 2015-02-06 Outpt Diag nullFlavo [facility] [id number] Mem[facility] 14:25:00 04:59:00 Services r Outpatient 00 l Imaging Mono Villareal 2015-02-05 2015-02-05 Outpatient [facility] [id number] [facility] 09:30:00 09:30:00 00 jamey Villareal Results Test Description Test Time Test Comments Results Result Comments Source Sars-CoV-2/FLU A/B RSV PCR 2021-08-18 09:15:00 Test Item Value Reference Range Interpretation Comme nts Sars-CoV-2/FLU A/B RSV PCR (test code = For use under Emergency Use SARSFLURSVPCR) Authorization (EUA) only. Sars-CoV-2/FLU A/B RSV PCR (test code = Reference Range: Negative SARSFLURSVPCR1.1) Influenza A PCR: (test code = Influenza Negative by Nucleic Acid Amplification A PCR:) Influenza B PCR: (test code = Influenza Negative by Nucleic Acid Amplification B PCR:) RSV PCR Result: (test code = RSV PCR Negative by Nucleic Acid Ampli fication Result:) SARS-CoV-2 PCR Result: (test code = Negative by RT-PCR SARS-CoV-2 PCR Result:) Comment: surgery [id number] Blood Count Auto [id number] 09:00:00 Test Item Value Reference Range Interpretation Comments White Blood Count (test code = 4.6 x10 3/uL 4.4-10.5 N WBCT) Red Blood Count (test code = 4.89 x10 6/uL 4.10-5.70 N RBC) Hemoglobin (test code = HGBT) 14.2 g/dL 13.4-17.4 N Hematocrit (test code = HCTT) 43.0 % 38.7-52.0 N Mean Corpuscular Volume (test 87.90 fL 80.00-100.00 N code = MCV) Mean Corpuscular Hemoglobin 29.0 pg 27.0-32.5 N (test code = MCH) Mean Corpuscular HGB Conc 33.00 g/dL 32.00-37.50 N (test code = MCHC) RDW Coefficient of Variation 14.0 % 11.5-14.5 N (test code = RDWCV) Platelet Count (test code = 196.0 x10 3/uL 140.0-440.0 N PLTT) Mean Platelet Volume (test 8.7 fL code = MPV) Immature Granulocytes % (Auto) 0.2 % 0.0-5.0 N (test code = IMMGRAN%) Neutrophils % (Auto) (test 41.7 % 36.0-70.0 N code = NE%) Lymphocytes % (Auto) (test 45.2 % 12.0-44.0 H code = LY%) Monocytes % (Auto) (test code 8.9 % 0.0-11.0 N = MO%) Eosinophils % (Auto) (test 3.3 % 0.0-7.0 N code = EO%) Basophils % (Auto) (test code 0.7 % 0.0-2.0 N = BA%) Immature Granulocytes # (Auto) 0.01 x10 3/uL (test code = IMMGRAN#) Neutrophils # (Auto) (test 1.9 x10 3/uL 1.6-7.4 N code = NE#) Lymphocytes # (Auto) (test 2.08 x10 3/uL 0.50-4.60 N code = LY#) Monocytes # (Auto) (test code 0.41 x10 3/uL 0.00-1.20 N = MO#) Eosinophils # (Auto) (test 0.15 x10 3/uL 0.00-0.74 N code = EO#) Basophils # (Auto) (test code 0.03 x10 3/uL 0.00-0.21 N = BA#) nRBC Abs (test code = NRBCA) 0 nRBC Pct (test code = NRBCP) 0 % Basic Metabolic [id number] 09:00:00 Test Item Value Reference Range Interpretation Comments SODIUM (test code = NA) 140.0 mmol/L 136.0-145.0 N Potassium,K (test code = K) 4.5 mmol/L 3.0-5.1 N Chloride (test code = CL) 109 mmol/L 98-107 H Carbon Dioxide (test code = CO2) 28 mmol/L 20-31 N Anion Gap (test code = GAP) 3 mmol/L 5-15 L Blood Urea Nitrogen (test code = 17 mg/dL 9-23 N BUN) Creatinine (test code = CREATT) 1.22 mg/dL 0.55-1.02 H Creatinine Clr Calc Pharmacy 48.28 mL/min (test code = CRCLPHA) Estimated GFR ( Ginger > 60 mL/min/1.73m2 (test code = EGFRAA) Estimated GFR (Non Afr Ginger 56 mL/min/1.73m2 (test code = EGFRNAA) BUN/Creatinine Ratio (test code 14 ratio 10-20 N = BCRATIO) Glucose (test code = GLU) 113 mg/dL 74-106 H Osmolality,Calculated (test code 292.0 = OSMOC) Calcium (test code = CA) 9.3 mg/dL 8.3-10.6 N UA, Urinalysis [id number] 08:50:00 Test Item Value Reference Range Interpretation Comments Color,Urine (test code = UCOL) Yellow Yellow Clarity,Urine (test code = Clear Clear UCLAR) Ph, Urine (test code = UPH) 6.0 5.0-9.0 N Specific [place],Urine (test 1.020 1.005-1.030 N code = USG) Blood,Urine (test code = UBLD) Negative mg/dL Negative Protein,Urine (test code = Negative mg/dL Negative UPRO) Glucose,Urine (UA) (test code Negative mg/dL Negative = UGLU) Ketones,Urine (test code = Negative mg/dL Negative UKET) Nitrate,Urine (test code = Negative Negative UNIT) Bilirubin,Urine (test code = Negative mg/dL Negative UBIL) Urobilinogen,Urine (test code 1.0 E.U./dL Normal = UURO) Leukocyte Esterase,Urine (test Negative mg/dL Negative code = ULEU) UC, Urine [id number] 08:50:00 Test Item Value Reference Range Interpretation Comments UC, Urine Culture (test NO GROWTH AFTER 48 code = UC) HOURS Sars-CoV-2/FLU A/B RSV [id number] 10:40:00 Test Item Value Reference Range Interpretation Comments Sars-CoV-2/FLU A/B RSV PCR (test code = SARSFLURSVPCR) Sars-CoV-2/FLU A/B Reference Range: RSV PCR (test code = Negative SARSFLURSVPCR1.1) Influenza A PCR: Negative by Nucleic Acid (test code = Amplification Influenza A PCR:) Influenza B PCR: Negative by Nucleic Acid (test code = Amplification Influenza B PCR:) RSV PCR Result: (test Negative by Nucleic Acid code = RSV PCR Amplification Result:) SARS-CoV-2 PCR Negative by RT-PCR Result: (test code = SARS-CoV-2 PCR Result:) EKG Electrocardiogram [facility] [address] [place], [place] [id number] Patient Name: ROX KNOWLES Medical Record#: [id number] Address: [address] [place] [address] /State/Zip: [place] [address]: Rox Samuel MD Insurance: Workers Comp Other /Age/Sex: 1945/76/M Self Pay Admit/Reg Date: 06/25/[address]: Rox Samuel MD Location: [facility]/ PCP: PCP,UNKNOWN Date of Service: 06/25/21 Order (s): EKG Electrocardiogram CPT Code: 03845 Report Number: [id number] Reason for Exam: pre op testing SINUS BRADYCARDIA Nonspecific intraventricular conduction delay Abnormal T, consider ischemia, lateral leads Summary: Abnormal ECG Dictated By: Titi Bauman MD 06/25/21 1056 Signed By: Titi Bauman MD 06/26/21 0820 TD/TT: 06/25/21 1056 Tech: [id number] cc: [id number]; PCPUNK* Rox Samuel MD; PCP,UNKNOWN
[2022-07-28 09:52] VITALS: BP 154/102; TEMP 98.1; O2SAT 100
== END 2022-07-28 05:10 | disposition home or self-care (01) ==
LOC: ER 04:24
DX: I10 Essential (primary) hypertension (principal)

== ENCOUNTER 2022-12-27 19:18 | Emergency (ER) | payer OTHER ==
--- OUTSIDE RECORDS SUMMARY | 2022-12-27 19:24 | XMS REPORT | Continuity of Care Document ---
:1945 Author Organization [facility] t Address [address] [facility]. [address] [place] [address] Care Team Providers Name Role Phone System MD, Provider Not In Primary Care Physician UnavailSHAQUILLE Peña Attending Clinician Unavailable Coco Humphreys Attending Clinician Unavailable Rox Samuel Attending Clinician Unavailable ERICKSON_R Attending Clinician Unavailable Doctor Unassigned, Edwards Attending Clinician Unavailable Faraz Saldana Attending Clinician [phone] NATALIA APARICIO Attending Clinician Unavailable Vinita Azevedo Attending Clinician VINITA DIETZ Attending Clinician Unavailable Miller_S_AH Attending Clinician Unavailable Rebekah-Mbayo_A_AH Attending Clinician Unavailable YOAN ROMAN Attending Clinician Unavailable ERICKSON_R Admitting Clinician Unavailable Miller_S_AH Admitting Clinician Unavailable Rebekah-Mbayo_A_AH Admitting Clinician Unavailable Payers Payer Name Policy Type Policy Number Effective Date Expiration Date S ource GENERIC INTERFACED [id number] 2016 2016 [facility] PLAN 00:00:00 00:00:00 [facility] ROBBY [id number] 1999 00:00:00 [facility] [id number] 2018 [employer] 00:00:00 (MEDICARE REPLACEMENT HMO) [employer] [place] - [id number] 2019 [place] (MEDICARE 00:00:00 REPLACEMENT/ADVANT[place] - HMO) Problems Condition Condition Condition Status Onset Resolution Last Treating Co mments Source Name Details Category Date Date Treatment Clinician Date Peripheral Peripheral Problem Active [facility] edema Edema 3-23 Communi 00:00: ty 00 [facility] Tinea Tinea Problem Active [place] capitis Capitis 3-24 Communi 00:00: ty 00 [facility] Hypertensi Hypertensi Problem Active S [facility] ve ve 3-24 Communi disorder Disorder 00:00: ty 00 [facility] Benign Benign Problem Active [place] prostatic Prostatic 3-24 Comm uni hyperplasi Hyperplasi 00:00: ty a with [facility] Outflow l obstructio Obstructio Cl inics n n Right side Right Side Problem Active S [facility] sciatica Sciatica 3-24 Commun i 00:00: ty 00 [facility] Gastroesop Gastroesop Problem Active [facility] hageal hageal 3-24 Communi reflux Reflux 00:00: ty disease Disease 00 [facility] Osteoarthr Osteoarthr Problem Active [facility] [place] itis itis 3-24 Communi 00:00: ty 00 [facility] History of History of Problem Active 2020-05 [facility] dislocated Dislocated 2-19 Co [facility]i shoulder Shoulder 00:00: ty 00 [facility] Benign Benign Problem Active [place] prostatic Prostatic 5-04 Fami ly hyperplasi Hyperplasi 00:00: Pr actic a a 00 e Chronic Chronic Problem Active [place] neck pain Neck Pain 5-01 Fami ly 00:00: Practic 00 e Chronic Chronic Problem Active [place] back pain Back Pain 5-01 Fami ly 00:00: Practic 00 e Unsteady Unsteady Problem Active [facility] gait Gait 2-16 Family 00:00: Practic 00 e Abnormal Abnormal Problem Active [facility] weight Weight 2-16 Family loss Loss 00:00: Practic 00 e Hyperlipid Hyperlipid Problem Active 2020-0 V [facility] emia emia 2-13 Family 00:00: [...] fibrillati Fibrillati 00:00: Pr actic on on 00 e Troponin I Troponin I Disease Active U nivers above above 7-15 [place] range 00 [facility] Hyperlipid Hyperlipid Problem Active S [place] emia emia 7-15 Communi 00:00: ty 00 [facility] Essential Essential Problem Active Swe marilyn hypertensi Hypertensi 7-15 Co mmuni on on 00:00: ty 00 [facility] History of History of Problem Active [facility] [place] deep vein Deep Vein 7-15 Comm uni thrombosis Thrombosis 00:00: ty 00 [facility] 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 7-14 Commun i 00:00: ty 00 [facility] Internal Internal Problem Active 2017-05 [place] hemorrhoid Hemorrhoid 0-02 Co mmuni s s 00:00: ty 00 [facility] History of History of Problem Active 2017-05 [facility] polyp of Polyp of 0-02 Commun i colon Colon 00:00: ty 00 [facility] Diverticul Diverticul Problem Active 2017-05 [facility] osis of osis of 0-02 Communi large Large 00:00: ty intestine Intestine 00 [facility]osp [facility] Clinics Closed Closed Disease Active [facility] compressio compressio 4-30 st n fracture n fracture 00:00: Ho spita of of 00 l thoracic thoracic vertebra vertebra Debility Debility Disease Active [facility] di [facility]-30 st 00:00: Hospita 00 l Fixation Fixation Disease Active [facility] hardware hardware 4-30 st in spine in spine 00:00: Hospit a 00 l Personal Personal Disease Active [facility] history of history of 4-30 st spine spine 00:00: Hospita surgery surgery 00 l 723.4 - 723.4 - Diagnosis Active 2015-02-05 [facility] 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 OPID [place] Hip pain Hip pain Problem Resolve 2015-02-08 Memoria (finding) (finding) d 13:28:30 l Resolved [place] Problem 02/08/2015 OPID [place] Knee pain Knee pain Problem Resolve 2015-02-08 [facility] (finding) (finding) d 13:28:30 l Resolved [place] Problem 02/08/2015 OPID [place] Shoulder Shoulder Problem Resolve 2015-02-08 Memoria joint pain joint pain d 13:28:30 l (finding) (finding) Herm osei Resolved Problem 02/08/2015 OPID [place] Allergies, Adverse Reactions, Alerts Allergy Allergy Status Severity Reaction(s) Onset Inactive Treating Comm ents Source Name Type Date Date Clinician No Known DA Active [facility] 4-22 Allergie 00:00: s 00 No Known DA Active [facility] 2-10 Allergie 00:00: s 00 NO KNOWN Drug Active Univers ALLERGIE Class ity of S [facility] Family History Family Member Diagnosis Comments Start Date Stop Date Source Natural mother Clotting disorder [facility] Social History Social Habit Start Date Stop Date Quantity Comments Source Exposure to Not sure University of SARS-CoV-2 (event) [facility] History of Social 2019-01-02 2019-01-[address] function 00:00:00 00:00:00 Hospital Alcohol intake 2018-12-11 2018-12-11 Current [facility]ism 00:00:00 00:00:00 non-drinker of Hospital alcohol (finding) Tobacco use and 2016-12-09 2016-12-09 Smokeless Universit y of exposure 00:00:00 00:00:00 tobacco non-user [facility] dical Branch Sex Assigned At [birth year] [facility] 00:00:00 00:00:00 Hospital Smoking Status Start Date Stop Date Source Tobacco smoking consumption unknown [facility] Social History [facility] Medications Ordered Filled Start Stop Current Ordering Indication Dosage Frequency Signature Comments Components Source Medication Medication Date Date Medication? Clinician (SIG) Name Name acetaminoph 2020-05 Yes [id number] 1{tbl} Take 1 [...] pain Tylenol-Cod Tylenol-Cod 2020-05 No 1{tbl} Tylenol-Co [place] eine #3 300 eine #3 300 2-30 deine #3 Communi mg-30 mg mg-30 mg 00:00: 300 mg-30 ty tablet 1 tablet 1 00 mg tablet Ho spita {tbl} by {tbl} by 1 {tbl} by l oral route. oral route. oral C linics route. Tylenol-Cod Tylenol-Cod 2020-05 No 1{tbl} Tylenol-Co [place] eine #3 300 eine #3 300 2-30 deine #3 Communi mg-30 mg mg-30 mg 00:00: 300 mg-30 ty tablet 1 tablet 1 00 mg tablet Ho spita {tbl} by {tbl} by 1 {tbl} by l oral route. oral route. oral C linics route. Tylenol-Cod Tylenol-Cod 2020-05 No 1{tbl} Tylenol-Co [place] eine #3 300 eine #3 300 2-30 deine #3 Communi mg-30 mg mg-30 mg 00:00: 300 mg-30 ty tablet 1 tablet 1 00 mg tablet Ho spita {tbl} by {tbl} by 1 {tbl} by l oral route. oral route. oral C linics route. Tylenol-Cod Tylenol-Cod 2020-05 No 1{tbl} Tylenol-Co [place] eine #3 300 eine #3 300 2-30 deine #3 Communi mg-30 mg mg-30 mg 00:00: 300 mg-30 ty tablet 1 tablet 1 00 mg tablet Ho spita {tbl} by {tbl} by 1 {tbl} by l oral route. oral route. oral C linics route. tamsulosin 2018-0 Yes Take by Univ ers 0.4 mg 24 9-04 mouth ity of hr capsule 15:54: daily. Medical Branch rivaroxaban 2018- Yes 15mg Take 15 mg Univers (XARELTO) [...] hr capsule 15:54: daily. Medical Branch rivaroxaban 2018- Yes 15mg Take 15 mg Univers (XARELTO) [...] tablet 00 times Medical daily. Branch tamsulosin 2018- Yes Take by Univ ers 0.4 mg [...] Medical daily. Branch tamsulosin Yes Take by [facility] ers 0.4 mg 24 9-04 mouth ity of hr capsule 15:54: daily. [place] 00 Medical Branch rivaroxaban Yes 15mg Take 15 mg Univers (XARELTO) 9-04 by mouth 2 ity of 15 mg 15:54: (two) [place] tablet 00 times Medical daily. Branch fluticasone Yes [id number] 1{spray Use 1 Univers propionate 9-04 } [place] in ity o f 50 00:00: each [place] mcg/actuati 00 nostril 2 Med ical on nasal (two) Branch spray times daily. fluticasone Yes [id number] 1{spray Use 1 [facility] propionate 9-04 } [place] in ity o f 50 00:00: each [place] mcg/actuati 00 nostril 2 Med ical on nasal (two) Branch spray times daily. fluticasone Yes [id number] 1{spray Use 1 [facility] propionate 9-04 } [place] in ity o f 50 00:00: each [place] mcg/actuati 00 nostril 2 Med ical on nasal (two) Branch spray times daily. fluticasone Yes [id number] 1{spray Use 1 Univers propionate 9-04 } [place] in ity o f 50 00:00: each [place] mcg/actuati 00 nostril 2 Med ical on nasal (two) Branch spray times daily. fluticasone Yes [id number] 1{spray Use 1 Univers propionate 9-04 } [place] in ity o f 50 00:00: each [place] mcg/actuati 00 nostril 2 Med ical on nasal (two) Branch spray times daily. fluticasone Yes [id number] 1{spray Use 1 Univers propionate 9-04 } [place] in ity o f 50 00:00: each [place] mcg/actuati 00 nostril 2 Med ical on nasal (two) Branch spray times daily. fluticasone Yes [id number] 1{spray Use 1 Univers propionate 9-04 } [place] in ity o f 50 00:00: each [place] mcg/actuati 00 nostril 2 Med ical on nasal (two) Branch spray times daily. rivaroxaban Yes [id number] 20mg Take 1 Univers 20 mg 8-10 tablet by ity of tablet 00:00: mouth [place] 00 daily. [facility] 12/23 rivaroxaban Yes [id number] 20mg Take 1 Univers 20 mg 8-10 tablet by ity of tablet 00:00: mouth [place] 00 daily. [facility] 12/23 rivaroxaban Yes [id number] 20mg Take 1 Univers 20 mg 8-10 tablet by ity of tablet 00:00: mouth [place] 00 daily. [facility] 12/23 rivaroxaban Yes [id number] 20mg Take 1 Univers 20 mg 8-10 tablet by ity of tablet 00:00: mouth [place] 00 daily. [facility] 12/23 rivaroxaban Yes [id number] 20mg Take 1 Univers 20 mg 8-10 tablet by ity of tablet 00:00: mouth [place] 00 daily. [facility] 12/23 rivaroxaban Yes [id number] 20mg Take 1 Univers 20 mg 8-10 tablet by ity of tablet 00:00: mouth [place] 00 daily. [facility] 12/23 rivaroxaban Yes [id number] 20mg Take 1 Univers 20 mg 8-10 tablet by ity of tablet 00:00: mouth [place] 00 daily. [facility] 12/23 mirtazapine Yes 15mg Take 15 mg Univers 15 mg 7-19 by mouth ity of tablet 17:36: daily. [address] mirtazapine Yes 15mg Take 15 mg Univers 15 mg 7-19 by mouth ity of tablet 17:36: daily. [address] mirtazapine Yes 15mg Take 15 mg Univers 15 mg 7-19 by mouth ity of tablet 17:36: daily. [address] mirtazapine Yes 15mg Take 15 mg Univers 15 mg 7-19 by mouth ity of tablet 17:36: daily. [address] mirtazapine Yes 15mg Take 15 mg Univers 15 mg 7-19 by mouth ity of tablet 17:36: daily. [address] mirtazapine 0 Yes 15mg Take 15 mg Univers 15 mg 7-19 by mouth ity of tablet 17:36: daily. [address] mirtazapine Yes 15mg Take 15 mg Univers 15 mg 7-19 by mouth ity of tablet 17:36: daily. [place] 54 [facility] Branch omeprazole 2019-0 Yes [id number] 40mg Take 1 Univers 40 mg 7-19 capsule by ity of capsule 00:00: mouth [place] 00 daily. Medical Branch omeprazole 2019-0 Yes [id number] 40mg Take 1 Univers 40 mg 7-19 capsule by ity of capsule 00:00: mouth [place] 00 daily. [facility] omeprazole 2019-0 Yes [id number] 40mg Take 1 Univers 40 mg 7-19 capsule by ity of capsule 00:00: mouth [place] 00 daily. [facility] omeprazole 2018-0 Yes [id number] 40mg Take 1 Univers 40 mg 7-19 capsule by ity of capsule 00:00: mouth [place] 00 daily. Medical Branch omeprazole 2019-0 Yes [id number] 40mg Take 1 Univers 40 mg 7-19 capsule by ity of capsule 00:00: mouth [place] 00 daily. [facility] omeprazole 2018-0 Yes [id number] 40mg Take 1 Univers 40 mg 7-19 capsule by ity of capsule 00:00: mouth [place] 00 daily. Medical [facility] omeprazole 2019-0 Yes [id number] 40mg Take 1 Univers 40 mg 7-19 capsule by ity of capsule 00:00: mouth [place] 00 daily. Medical Branch rivaroxaban Yes 20mg Take 20 mg [facility] (XARELTO) 4-[address] 20 mg 14:16: Hospita tablet 26 l atorvastati Yes 20mg QD Take 20 mg [facility] n (LIPITOR) 4-[address] 20 MG 14:16: daily. Hospita tablet 26 Default OP l ins metoprolol Yes 50mg QD Take 50 mg M [facility]i succinate 4-[address] XL 14:16: daily. Hospita (TOPROL-XL) 26 l 50 mg 24 hr tablet atorvastati Yes 20mg QD Take 20 mg [facility] n (LIPITOR) 4-[address] 20 MG 14:16: daily. Hospita tablet 26 Default OP l ins rivaroxaban Yes 20mg Take 20 mg [facility] (XARELTO) 4-[address] 20 mg 14:16: Hospita tablet 26 l rivaroxaban Yes 20mg Take 20 mg [facility] (XARELTO) [...] 26 l 50 mg 24 hr tablet metoprolol 2018-0 Yes 50mg QD Take 50 mg M ethodi succinate 4-[address] XL 14:16: daily. Hospita (TOPROL-XL) 26 l 50 mg 24 hr tablet atorvastati 2018-0 Yes 20mg QD Take 20 mg [facility] n (LIPITOR) 4-[address] 20 MG 14:16: daily. Hospita tablet 26 Default OP l ins amLODIPine 2018-0 Yes 5mg QD Take 5 mg [facility] (NORVASC) 5 4-[address] mg tablet 14:16: daily. Hospit a 25 l amLODIPine 2018-0 Yes 5mg QD Take 5 mg [facility] (NORVASC) 5 4-[address] mg tablet 14:16: daily. Hospit a 25 l tamsulosin 2018-0 Yes .4mg QD Take 0.4 [facility] (FLOMAX) 4-[address] 0.4 mg 14:16: mouth Hospita capsule,ext 25 daily. l ended release 24hr tamsulosin 2018-0 Yes .4mg QD Take 0.4 [...] 14:16: daily. Hospit a 25 l tamsulosin Yes .4mg QD Take 0.4 [facility] (FLOMAX) 4-[address] 0.4 mg 14:16: mouth Hospita capsule,ext 25 daily. l ended release 24hr atorvastati atorvastati No atorvastat [place] n 20 mg n 20 mg 5-17 in 20 mg Commu ni tablet tablet 00:00: tablet ty 00 [facility] atorvastati atorvastati No atorvastat [place] n 20 mg n 20 mg 5-17 in 20 mg Commu ni tablet Take tablet Take 00:00: tablet ty 1 tablet in 1 tablet in 00 Take 1 Hospita the evening the evening tablet in the [facility] evening atorvastati Yes Univer s n 20 mg 5-17 ity of tablet 00:00: [address] atorvastati Yes Univer s n 20 mg 5-17 ity of tablet 00:00: [address] atorvastati Yes Univer s n 20 mg 5-17 ity of tablet 00:00: [address] atorvastati Yes Univer s n 20 mg 5-17 ity of tablet 00:00: [address] atorvastati Yes Univer s n 20 mg 5-17 ity of tablet 00:00: [address] atorvastati 2017 Yes Univer s n 20 mg 5-17 ity of tablet 00:00: [address] atorvastati 2017 Yes Univer s n 20 mg 5-17 ity of tablet 00:00: [address] amlodipine amlodipine No amlodipine [place] 10 mg 10 mg 10 mg Communi tablet TAKE tablet TAKE tablet ty 1 TABLET BY 1 TABLET BY TAKE 1 Hospita MOUTH ONCE MOUTH ONCE TABLET BY l DAILY DAILY MOUTH ONCE Clinics DAILY amlodipine amlodipine No amlodipine [place] 5 mg tablet 5 mg tablet 5 mg C ommuni TAKE 1 TAKE 1 tablet ty TABLET BY TABLET BY TAKE 1 Hos devonte MOUTH ONCE MOUTH ONCE TABLET BY l DAILY DAILY MOUTH ONCE Clinics DAILY clotrimazol clotrimazol No clotrimazo [place] e-betametha e-betametha le-betamet Communi sone 1 sone [...] 2 WEEKS AND EVENING FOR 2 WEEKS atorvastati atorvastati No 1 Q1D atorvastat [place] [...] DAILY ONCE DAILY TOPICALLY ONCE DAILY Eliquis 5 Eliquis 5 No 1 BID Eliquis 5 [facility] mg tablet mg tablet mg tablet Family Take 1 Take 1 Take 1 Practic tablet tablet tablet e twice a day twice a day twice a by oral by oral day by route. route. oral route. Eliquis 2.5 Eliquis 2.5 No 1 BID Eliquis [place] mg tablet mg tablet 2.5 mg Com jelly Take 1 Take 1 tablet ty tablet tablet Take 1 Hospita twice a day twice a day tablet l by oral by oral twice a Clinic s route. route. day by oral route. omeprazole omeprazole No 1capsul Q1D omeprazole [place] 20 mg 20 mg e(s) 20 mg Family capsule,del capsule,del capsule,de Practic ayed ayed layed e release release release Take 1 Take 1 Take 1 capsule capsule capsule every day every day every day by oral by oral by oral route. route. route. ketoconazol ketoconazol No ketoconazo [place] e 2 % e 2 % le [...] THEN RINSE THEN RINSE MINUTES THEN RINSE ramipril 10 ramipril 10 No 1capsul Q1D ramipril [place] mg capsule mg capsule e(s) 10 mg Fa xavi Take 1 Take 1 capsule Practic capsule capsule Take 1 e every day every day capsule by oral by oral every day route. route. by oral route. omeprazole omeprazole No omeprazole [place] 20 mg 20 mg 20 mg Communi capsule,del capsule,del capsule,de ty ayed ayed layed Hospita release release release l TAKE 1 TAKE 1 TAKE 1 Clinics CAPSULE BY CAPSULE BY CAPSULE BY MOUTH ONCE MOUTH ONCE MOUTH ONCE DAILY DAILY DAILY BEFORE A BEFORE A BEFORE A MEAL MEAL MEAL tamsulosin tamsulosin No tamsulosin [place] 0.4 mg 0.4 mg 0.4 mg Communi capsule capsule capsule ty TAKE 2 TAKE 2 TAKE 2 Hospita CAPSULES BY CAPSULES BY CAPSULES l MOUTH ONCE MOUTH ONCE BY MOUTH Clinics DAILY 30 DAILY 30 ONCE DAILY MINUTES MINUTES 30 MINUTES AFTER THE AFTER THE AFTER THE SAME MEAL SAME MEAL SAME MEAL tamsulosin tamsulosin No 1capsul Q1D tamsulosin [place] 0.4 mg 0.4 mg e(s) 0.4 mg Family capsule capsule capsule Practi c Take 1 Take 1 Take 1 e capsule capsule capsule every day every day every day by oral by oral by oral route. route. route. albuterol albuterol No 2puff(s Q4H albuterol [place] sulfate HFA sulfate HFA ) sulfate Communi 90 90 HFA 90 ty mcg/actuati mcg/actuati mcg/actuat Hospita on aerosol on aerosol ion l inhaler inhaler aerosol Clinic s Inhale 2 Inhale 2 inhaler puffs every puffs every Inhale 2 4 hours by 4 hours by puffs inhalation inhalation every 4 route. route. hours by inhalation route. Vesicare 10 Vesicare 10 No 1 Q1D Vesicare [place] mg tablet mg tablet 10 mg Fami ly Take 1 Take 1 tablet Practic tablet tablet Take 1 e every day every day tablet by oral by oral every day route. route. by oral route. amlodipine amlodipine No amlodipine [place] 5 mg tablet 5 mg tablet 5 mg C ommuni TAKE 1 TAKE 1 tablet ty TABLET BY TABLET BY TAKE 1 Hos devonte MOUTH ONCE MOUTH ONCE TABLET BY l DAILY DAILY MOUTH ONCE Clinics DAILY amlodipine amlodipine No 1 Q1D amlodipine [place] 5 mg tablet 5 mg tablet 5 mg F amily Take 1 Take 1 tablet Practic tablet tablet Take 1 e every day every day tablet by oral by oral every day route. route. by oral route. clotrimazol clotrimazol No clotrimazo [place] e-betametha e-betametha le-betamet Communi sone 1 sone [...] 2.5 Eliquis 2.5 No 1 BID Eliquis [place] mg tablet mg tablet 2.5 mg Com jelly Take 1 Take 1 tablet ty tablet tablet Take 1 Hospita twice a day twice a day tablet l by oral by oral twice a Clinic s route. route. day by oral route. ketoconazol ketoconazol No ketoconazo [place] e 2 % e 2 % le [...] RINSE meloxicam meloxicam No 1 Q1D meloxicam [place] 15 mg 15 mg 15 mg Communi tablet Take tablet Take tablet ty 1 tablet 1 tablet Take 1 Hospi ta every day every day tablet l by oral by oral every day Clin ics route. route. by oral route. omeprazole omeprazole No omeprazole [place] 20 mg 20 mg 20 mg Communi capsule,del capsule,del capsule,de ty ayed ayed layed Hospita release release release l TAKE 1 TAKE 1 TAKE 1 Clinics CAPSULE BY CAPSULE BY CAPSULE BY MOUTH ONCE MOUTH ONCE MOUTH ONCE DAILY DAILY DAILY BEFORE A BEFORE A BEFORE A MEAL MEAL MEAL tamsulosin tamsulosin No tamsulosin [place] 0.4 mg 0.4 mg 0.4 mg Communi capsule capsule capsule ty TAKE 2 TAKE 2 TAKE 2 Hospita CAPSULES BY CAPSULES BY CAPSULES l MOUTH ONCE MOUTH ONCE BY MOUTH Clinics DAILY 30 DAILY 30 ONCE DAILY MINUTES MINUTES 30 MINUTES AFTER THE AFTER THE AFTER THE SAME MEAL SAME MEAL SAME MEAL albuterol albuterol No albuterol [place] sulfate HFA sulfate HFA sulfate Communi 90 90 HFA 90 ty mcg/actuati mcg/actuati mcg/actuat Hospita on aerosol on aerosol ion l inhaler inhaler aerosol Clinic s Inhale 2 Inhale 2 inhaler puffs every puffs every Inhale 2 4 hours by 4 hours by puffs inhalation inhalation every 4 route. route. hours by inhalation route. amlodipine amlodipine No amlodipine [place] 10 mg 10 mg 10 mg Communi tablet TAKE tablet TAKE tablet ty 1 TABLET BY 1 TABLET BY TAKE 1 Hospita MOUTH EVERY MOUTH EVERY TABLET BY l DAY DAY MOUTH Clinics EVERY DAY amlodipine amlodipine No amlodipine [place] 5 mg tablet 5 mg tablet 5 mg C ommuni Take 1 Take 1 tablet ty tablet QD tablet QD Take 1 Hos devonte PO PO tablet QD l PO Clinics atorvastati atorvastati No atorvastat [place] n 20 mg n 20 mg in 20 mg Commu ni tablet Take tablet Take tablet ty 1 tablet in 1 tablet in Take 1 Hospita the evening the evening tablet in l the Clinics evening clotrimazol clotrimazol No clotrimazo [place] e-betametha e-betametha le-betamet Communi sone 1 sone [...] 2.5 Eliquis 2.5 No 1 BID Eliquis [place] mg tablet mg tablet 2.5 mg Com jelly Take 1 Take 1 tablet ty tablet tablet Take 1 Hospita twice a day twice a day tablet l by oral by oral twice a Clinic s route. route. day by oral route. finasteride finasteride No finasterid [place] 5 mg tablet 5 mg tablet e 5 mg Communi TAKE 1 TAKE 1 tablet ty TABLET BY TABLET BY TAKE 1 Hos devonte MOUTH EVERY MOUTH EVERY TABLET BY l DAY DAY MOUTH Clinics EVERY DAY furosemide furosemide No furosemide [place] 20 mg 20 mg 20 mg Communi tablet TAKE tablet TAKE tablet ty 1 - 2 1 - 2 TAKE 1 - 2 Hospita TABLETS BY TABLETS BY TABLETS BY l MOUTH TWICE MOUTH TWICE MOUTH Clinics A DAY A DAY TWICE A NEEDED FOR NEEDED FOR DAY ANKLE ANKLE NEEDED FOR SWELLING SWELLING ANKLE SWELLING ketoconazol ketoconazol No ketoconazo [place] e 2 % e 2 % le [...] THEN RINSE THEN RINSE MINUTES THEN RINSE Myrbetriq Myrbetriq No Myrbetriq [place] 50 mg 50 mg 50 mg Communi tablet,exte tablet,exte tablet,ext ty nded nded ended Hospita release release release l TAKE 1 TAKE 1 TAKE 1 Clinics TABLET BY TABLET BY TABLET BY MOUTH ONCE MOUTH ONCE MOUTH ONCE DAILY (DO DAILY (DO DAILY (DO NOT CURSH NOT CURSH NOT CURSH OR CHEW) OR CHEW) OR CHEW) omeprazole omeprazole No omeprazole [place] 20 mg 20 mg 20 mg Communi capsule,del capsule,del capsule,de ty ayed ayed layed Hospita release release release l TAKE 1 TAKE 1 TAKE 1 Clinics CAPSULE BY CAPSULE BY CAPSULE BY MOUTH ONCE MOUTH ONCE MOUTH ONCE DAILY DAILY DAILY BEFORE A BEFORE A BEFORE A MEAL MEAL MEAL sodium,pota sodium,pota No sodium,pot [place] ssium,mag ssium,mag assium,mag Communi sulfates sulfates sulfates ty 17.5 17.5 17.5 Hospita gram-3.13 gram-3.13 gram-3.13 l gram-1.6 gram-1.6 gram-1.6 Cli nics gram oral gram oral gram oral soln USE soln USE soln USE DIRECTED DIRECTED DIRECTED tadalafil tadalafil No tadalafil [place] 20 mg 20 mg 20 mg Communi tablet TAKE tablet TAKE tablet ty 1 TABLET BY 1 TABLET BY TAKE 1 Hospita MOUTH ONCE MOUTH ONCE TABLET BY l DAILY DAILY MOUTH ONCE C linics NEEDED FOR NEEDED FOR DAILY ERECTILE ERECTILE NEEDED FOR DYSFUNCTION DYSFUNCTION ERECTILE (TAKE PRIOR (TAKE PRIOR DYSFUNCTIO TO TO N (TAKE INTERCOURSE INTERCOURSE PRIOR TO ) ) INTERCOURS E) tamsulosin tamsulosin No tamsulosin [place] 0.4 mg 0.4 mg 0.4 mg Communi capsule capsule capsule ty TAKE 2 TAKE 2 TAKE 2 Hospita CAPSULES BY CAPSULES BY CAPSULES l MOUTH EVERY MOUTH EVERY BY MOUTH Clinics DAY 30 EVERY DAY MINUTES MINUTES 30 MINUTES AFTER THE AFTER THE AFTER THE SAME MEAL SAME MEAL SAME MEAL EACH DAY EACH DAY EACH DAY albuterol albuterol No albuterol [place] sulfate HFA sulfate HFA [facility] Communi 90 90 HFA 90 ty mcg/actuati mcg/actuati mcg/actuat Hospita on aerosol on aerosol ion l inhaler inhaler aerosol Clinic s Inhale 2 Inhale 2 inhaler puffs every puffs every Inhale 2 4 hours by 4 hours by puffs inhalation inhalation every 4 route. route. hours by inhalation route. amlodipine amlodipine No amlodipine [place] 10 mg 10 mg 10 mg Communi tablet TAKE tablet TAKE tablet ty 1 TABLET BY 1 TABLET BY TAKE 1 Hospita MOUTH ONCE MOUTH ONCE TABLET BY l DAILY DAILY MOUTH ONCE Clinics DAILY atorvastati atorvastati No atorvastat [place] n 20 mg n 20 mg in 20 mg Commu ni tablet Take tablet Take tablet ty 1 tablet in 1 tablet in Take 1 Hospita the evening the evening tablet in l the Clinics evening clotrimazol clotrimazol No clotrimazo [place] e-betametha e-betametha le-betamet Communi sone 1 sone [...] 2.5 Eliquis 2.5 No 1 BID Eliquis [place] mg tablet mg tablet 2.5 mg Com jelly Take 1 Take 1 tablet ty tablet tablet Take 1 Hospita twice a day twice a day tablet l by oral by oral twice a Clinic s route. route. day by oral route. ketoconazol ketoconazol No ketoconazo [place] e 2 % e 2 % le [...] MINUTES THEN RINSE meloxicam meloxicam No meloxicam [place] 15 mg 15 mg 15 mg Communi tablet Take tablet Take tablet ty 1 tablet 1 tablet Take 1 Hospi ta every day every day tablet l by oral by oral every day Clin ics route. route. by oral route. Myrbetriq Myrbetriq No Myrbetriq [place] 50 mg 50 mg 50 mg Communi tablet,exte tablet,exte tablet,ext ty nded nded ended Hospita release release release l TAKE 1 TAKE 1 TAKE 1 Clinics TABLET BY TABLET BY TABLET BY MOUTH ONCE MOUTH ONCE MOUTH ONCE DAILY (DO DAILY (DO DAILY (DO NOT CRUSH NOT CRUSH NOT CRUSH OR CHEW) OR CHEW) OR CHEW) omeprazole omeprazole No omeprazole [place] 20 mg 20 mg 20 mg Communi capsule,del capsule,del capsule,de ty ayed ayed layed Hospita release release release l TAKE 1 TAKE 1 TAKE 1 Clinics CAPSULE BY CAPSULE BY CAPSULE BY MOUTH ONCE MOUTH ONCE MOUTH ONCE DAILY DAILY DAILY BEFORE A BEFORE A BEFORE A MEAL MEAL MEAL tamsulosin tamsulosin No tamsulosin [place] 0.4 mg 0.4 mg 0.4 mg Communi capsule capsule capsule ty TAKE 2 TAKE 2 TAKE 2 Hospita CAPSULES BY CAPSULES BY CAPSULES l MOUTH ONCE MOUTH ONCE BY MOUTH Clinics DAILY 30 DAILY 30 ONCE DAILY MINUTES MINUTES 30 MINUTES AFTER THE AFTER THE AFTER THE SAME MEAL SAME MEAL SAME MEAL acetaminoph acetaminoph No acetaminop [place] en 300 en 300 hen 300 Communi [...] 7-10) (SCALE 4-6) OR PAIN (SCALE 7-10) amlodipine amlodipine No amlodipine [place] 5 mg tablet 5 mg tablet 5 mg C ommuni Take 1 Take 1 tablet ty tablet QD tablet QD Take 1 Hos devonte PO PO tablet QD l PO Clinics atorvastati atorvastati No atorvastat [place] n 20 mg n 20 mg in 20 mg Commu ni tablet Take tablet Take tablet ty 1 tablet 1 tablet Take 1 Hospi ta daily by daily by tablet l mouth mouth daily by Clinics mouth desonide desonide No desonide Swe marilyn 0.05 % 0.05 % 0.05 % Communi topical topical topical ty cream Apply cream Apply cream Hospita daily daily Apply l daily Clinics Eliquis 2.5 Eliquis 2.5 No 1 BID Eliquis [place] mg tablet mg tablet 2.5 mg Com jelly Take 1 Take 1 tablet ty tablet tablet Take 1 Hospita twice a day twice a day tablet l by oral by oral twice a Clinic s route. route. day by oral route. ketoconazol ketoconazol No ketoconazo [place] e 2 % e 2 % le [...] rinse rinse rinse omeprazole omeprazole No omeprazole [place] 20 mg 20 mg 20 mg Communi capsule,del capsule,del capsule,de ty ayed ayed layed Hospita release release release l Take 1 Take 1 Take 1 Clinics tablet tablet tablet daily by daily by daily by mouth mouth mouth tamsulosin tamsulosin No tamsulosin [place] 0.4 mg 0.4 mg 0.4 mg Communi [...] Source Name Name influenza, influenza, 2020-12-14 Completed [place] [facility] injectable, injectable, 00:00:00 [facility] nics quadrivalent quadrivalent influenza, influenza, 2020-12-14 Completed [place] [facility] injectable, injectable, 00:00:00 [facility] nics quadrivalent quadrivalent influenza, influenza, 2020-12-14 Completed [place] [facility] injectable, injectable, 00:00:00 [facility] nics quadrivalent quadrivalent influenza, influenza, 2020-12-14 Completed [place] [facility] injectable, injectable, 00:00:00 [facility] nics quadrivalent quadrivalent COVID-19 COVID-19 2020-09-10 Completed [place] [facility] (SARS-COV-2) (SARS-COV-2) 00:00:00 [facility] linics vaccine, unspecified vaccine, unspecified COVID-19 COVID-19 2020-09-10 Completed [place] [facility] (SARS-COV-2) (SARS-COV-2) 00:00:00 [facility] linics vaccine, unspecified vaccine, unspecified COVID-19 COVID-19 2020-09-10 Completed [place] [facility] (SARS-COV-2) (SARS-COV-2) 00:00:00 Hospital linics vaccine, unspecified vaccine, unspecified COVID-19 COVID-19 2020-09-10 Completed [place] [facility] (SARS-COV-2) (SARS-COV-2) 00:00:00 [facility] vaccine, unspecified vaccine, unspecified COVID-19, mRNA, COVID-19, mRNA, 2020-08-11 Completed [facility] LNP-S, PF, 100 LNP-S, PF, 100 00:00:00 [facility] Clin[facility] mcg/0.5 mL dose mcg/0.5 mL dose (Moderna) (Moderna) COVID-19, mRNA, COVID-19, mRNA, 2020-08-11 Completed [facility] LNP-S, PF, 100 LNP-S, PF, 100 00:00:00 [facility] Clin[facility] mcg/0.5 mL dose mcg/0.5 mL dose (Moderna) (Moderna) COVID-19, mRNA, COVID-19, mRNA, 2020-08-11 Completed [facility] LNP-S, PF, 100 LNP-S, PF, 100 00:00:00 Hospit [facility] Clinics mcg/0.5 mL dose mcg/0.5 mL dose (Moderna) (Moderna) COVID-19, mRNA, COVID-19, mRNA, 2020-08-11 Completed [facility] LNP-S, PF, 100 LNP-S, PF, 100 00:00:00 Hospit [facility] Clinics mcg/0.5 mL dose mcg/0.5 mL dose (Moderna) (Moderna) influenza, influenza, 2020-02-14 Completed [place] [facility] injectable, injectable, 00:00:00 Hospital Cli nics quadrivalent quadrivalent influenza, influenza, 2020-02-14 Completed [place] [facility] injectable, injectable, 00:00:00 Hospital Cli nics quadrivalent quadrivalent influenza, influenza, 2020-02-14 Completed [place] [facility] injectable, injectable, 00:00:00 Hospital Cli nics quadrivalent quadrivalent influenza, influenza, 2020-02-14 Completed [place] [facility] injectable, injectable, 00:00:00 Hospital Cli nics quadrivalent quadrivalent influenza, influenza, 2019-05-16 Completed [facility] injectable, injectable, 00:00:00 Practice quadrivalent quadrivalent influenza, influenza, 2019-04-24 Completed [place] [facility] injectable, injectable, 00:00:00 Hospital Cli nics quadrivalent quadrivalent influenza, influenza, 2019-04-24 Completed [place] [facility] injectable, injectable, 00:00:00 Hospital Cli nics quadrivalent quadrivalent influenza, influenza, 2019-04-24 Completed [place] [facility] injectable, injectable, 00:00:00 Hospital Cli nics quadrivalent quadrivalent influenza, influenza, 2019-04-24 Completed [place] [facility] injectable, injectable, 00:00:00 Hospital Cli nics quadrivalent quadrivalent influenza, influenza, 2018-05-16 Completed [facility] Family injectable, injectable, 00:00:00 Practice quadrivalent quadrivalent influenza, influenza, 2018-03-16 Completed [place] [facility] injectable, injectable, 00:00:00 Hospital Cli nics quadrivalent quadrivalent influenza, influenza, 2018-03-16 Completed [place] [facility] injectable, injectable, 00:00:00 Hospital Cli nics quadrivalent quadrivalent influenza, influenza, 2018-03-16 Completed [place] [facility] injectable, injectable, 00:00:00 Hospital Cli nics quadrivalent quadrivalent influenza, influenza, 2018-03-16 Completed [place] [facility] injectable, injectable, 00:00:00 Hospital Cli nics quadrivalent quadrivalent Tdap Tdap 2014-04-25 Completed [place] [facility] 00:00:00 Hospital [facility] Tdap Tdap 2014-04-25 Completed [place] [facility] 00:00:00 Hospital [facility] cs Tdap Tdap 2014-04-25 Completed [place] [facility] 00:00:00 Hospital Cl[facility] cs Tdap Tdap 2014-04-25 Completed [place] [facility] 00:00:00 Hospital Clini cs Vital Signs Vital Name Observation Time Observation Value Comments Source BP Diastolic 2022-08-24 00:00:00 70 mm[Hg] [facility] Height 2022-08-24 00:00:00 68.5 [in_i] [facility] BMI (Body Mass 2022-08-24 00:00:00 27.4 kg/m2 [facility] BP Systolic 2022-08-24 00:00:00 116 mm[Hg] [facility] Body Weight 2022-08-24 00:00:00 2928 [oz_av] [facility] BP Diastolic 2022-03-11 00:00:00 72 mm[Hg] [facility] Height 2022-03-11 00:00:00 68.5 [in_i] [facility] BMI (Body Mass 2022-03-11 00:00:00 26.8 kg/m2 [facility]) [facility] s BP Systolic 2022-03-11 00:00:00 118 mm[Hg] [facility] Body Weight 2022-03-11 00:00:00 2864 [oz_av] [facility] BP Diastolic 2021-11-03 00:00:00 62 mm[Hg] [facility] Height 2021-11-03 00:00:00 68.5 [in_i] [facility] BMI (Body Mass 2021-11-03 00:00:00 26.5 kg/m2 [facility]) [facility] s BP Systolic 2021-11-03 00:00:00 104 mm[Hg] [facility] Body Weight 2021-11-03 00:00:00 2832 [oz_av] [facility] Height 2021-09-25 00:00:00 68.5 [in_i] [facility] BP Diastolic 2021-08-06 00:00:00 78 mm[Hg] [facility] Height 2021-08-06 00:00:00 68.5 [in_i] [facility] BMI (Body Mass 2021-08-06 00:00:00 26.7 kg/m2 [facility] BP Systolic 2021-08-06 00:00:00 114 mm[Hg] [facility] Body Weight 2021-08-06 00:00:00 2848 [oz_av] [facility] Body height 2021-05-14 15:06:00 172.7 cm [facility] Body weight 2021-05-14 15:06:00 79.379 kg [facility] BMI 2021-05-14 15:06:00 26.61 kg/m2 [facility] Procedures Procedure Date / Time Performing Clinician Source Performed AUTHORIZATION FOR RELEASE 2021-12-04 05:01:00 Doctor Venita, [facility] Name Medical [place] XR, chest, 2 view 2021-11-03 00:00:00 [facility] CT, brain, w/o contrast 2021-11-03 00:00:00 [facility] PHYSICIAN ORDERS 2021-07-23 06:01:00 Doctor Venita, [facility] Name Medical Branch REFERRAL- REQUEST/RESPONSE 2021-07-07 06:01:00 Doctor Venita , [facility] Name Medical [place] US RETROPERITONEUM 2021-06-15 16:00:00 [facility] RETROPERITONEUM 2021-06-15 16:00:00 [facility] INSURANCE CORRESPONDENCE 2021-05-06 06:01:00 Doctor Venita [facility] Name Medical [place] Knee Surgery [facility] Family Practice Surgical Procedure on [place] Cervical Spine Practice Knee reoperations [facility] Inguinal Hernioplasty [facility] Operative Procedure on [place] [facility] Procedure on Spleen [facility] Plan of Care Planned Activity Planned Date Details Comments Source Future Scheduled Test 2022-12-17 COVID-19 VACCINE (#1) [facility] 02:43:22 [code = COVID-19 VACCINE (#1)] Future Scheduled Test 2022-12-17 SHINGLES VACCINES (1 [facility] 02:43:22 of 2) [code = SHINGLES VACCINES (1 of 2)] Future Scheduled Test 2022-12-17 65+ PNEUMOCOCCAL [facility] 02:43:22 VACCINE (1 - PCV) [code = 65+ PNEUMOCOCCAL VACCINE (1 - PCV)] Future Scheduled Test 2022-12-17 INFLUENZA VACCINE [facility] 02:43:22 [code = INFLUENZA VACCINE] Future Scheduled Test 2022-11-15 COVID-19 VACCINE (#1) [facility] 08:05:35 [code = COVID-19 VACCINE (#1)] Future Scheduled Test 2022-11-15 SHINGLES VACCINES (1 [facility] 08:05:35 of 2) [code = SHINGLES VACCINES (1 of 2)] Future Scheduled Test 2022-11-15 65+ PNEUMOCOCCAL [facility] 08:05:35 VACCINE (1 - PCV) [code = 65+ PNEUMOCOCCAL VACCINE (1 - PCV)] Future Scheduled Test 2022-11-15 INFLUENZA VACCINE [facility] 08:05:35 [code = INFLUENZA VACCINE] Future Scheduled Test 2022-11-15 COVID-19 VACCINE (#1) [facility] 08:05:35 [code = COVID-19 VACCINE (#1)] Future Scheduled Test 2022-11-15 SHINGLES VACCINES (1 [facility] 08:05:35 of 2) [code = SHINGLES VACCINES (1 of 2)] Future Scheduled Test 2022-11-15 65+ PNEUMOCOCCAL [facility] 08:05:35 VACCINE (1 - PCV) [code = 65+ PNEUMOCOCCAL VACCINE (1 - PCV)] Future Scheduled Test 2022-11-15 INFLUENZA VACCINE [facility] 08:05:35 [code = INFLUENZA VACCINE] Future Scheduled Test 2022-11-15 COVID-19 VACCINE (#1) [facility] 08:05:35 [code = COVID-19 VACCINE (#1)] Future Scheduled Test 2022-11-15 SHINGLES VACCINES (1 [facility] 08:05:35 of 2) [code = SHINGLES VACCINES (1 of 2)] Future Scheduled Test 2022-11-15 65+ PNEUMOCOCCAL [facility] 08:05:35 VACCINE (1 - PCV) [code = 65+ PNEUMOCOCCAL VACCINE (1 - PCV)] Future Scheduled Test 2022-11-15 INFLUENZA VACCINE [facility] 08:05:35 [code = INFLUENZA VACCINE] Future Scheduled Test 2022-11-15 COVID-19 VACCINE (#1) [facility] 08:05:35 [code = COVID-19 VACCINE (#1)] Future Scheduled Test 2022-11-15 SHINGLES VACCINES (1 [facility] 08:05:35 of 2) [code = SHINGLES VACCINES (1 of 2)] Future Scheduled Test 2022-11-15 65+ PNEUMOCOCCAL [facility] 08:05:35 VACCINE (1 - PCV) [code = 65+ PNEUMOCOCCAL VACCINE (1 - PCV)] Future Scheduled Test 2022-11-15 INFLUENZA VACCINE [facility] 08:05:35 [code = INFLUENZA VACCINE] Future Scheduled Test 2022-11-15 COVID-19 VACCINE (#1) [facility] 08:05:35 [code = COVID-19 VACCINE (#1)] Future Scheduled Test 2022-11-15 SHINGLES VACCINES (1 [facility] 08:05:35 of 2) [code = SHINGLES VACCINES (1 of 2)] Future Scheduled Test 2022-11-15 65+ PNEUMOCOCCAL [facility] 08:05:35 VACCINE (1 - PCV) [code = 65+ PNEUMOCOCCAL VACCINE (1 - PCV)] Future Scheduled Test 2022-11-15 INFLUENZA VACCINE [facility] 08:05:35 [code = INFLUENZA VACCINE] Future Scheduled Test 2022-11-15 COVID-19 VACCINE (#1) [facility] 08:05:35 [code = COVID-19 VACCINE (#1)] Future Scheduled Test 2022-11-15 SHINGLES VACCINES (1 [facility] 08:05:35 of 2) [code = SHINGLES VACCINES (1 of 2)] Future Scheduled Test 2022-11-15 65+ PNEUMOCOCCAL [facility] 08:05:35 VACCINE (1 - PCV) [code = 65+ PNEUMOCOCCAL VACCINE (1 - PCV)] Future Scheduled Test 2022-11-15 INFLUENZA VACCINE [facility] 08:05:35 [code = INFLUENZA VACCINE] Future Scheduled Test 2022-10-29 COVID-19 VACCINE (#1) [facility] 03:30:06 [code = COVID-19 VACCINE (#1)] Future Scheduled Test 2022-10-29 SHINGLES VACCINES (1 [facility] 03:30:06 of 2) [code = SHINGLES VACCINES (1 of 2)] Future Scheduled Test 2022-10-29 65+ PNEUMOCOCCAL [facility] 03:30:06 VACCINE (1 - PCV) [code = 65+ PNEUMOCOCCAL VACCINE (1 - PCV)] Future Scheduled Test 2022-10-29 INFLUENZA VACCINE [facility] 03:30:06 [code = INFLUENZA VACCINE] Diagnostic Test 2022-08-24 CMP, serum or plasma [facility] Pending 00:00:00 [code = [facility]] Future Scheduled Test 2022-08-23 COVID-19 VACCINE (#1) [facility] 21:17:03 [code = COVID-19 VACCINE (#1)] Future Scheduled Test 2022-08-23 SHINGLES VACCINES (1 [facility] 21:17:03 of 2) [code = SHINGLES VACCINES (1 of 2)] Future Scheduled Test 2022-08-23 65+ PNEUMOCOCCAL [facility] 21:17:03 VACCINE (1 - PCV) [code = 65+ PNEUMOCOCCAL VACCINE (1 - PCV)] Future Scheduled Test 2022-08-23 INFLUENZA VACCINE [facility] 21:17:03 [code = INFLUENZA VACCINE] Future Scheduled Test 2022-06-10 COVID-19 VACCINE (#1) [facility] 03:41:56 [code = COVID-19 VACCINE (#1)] Future Scheduled Test 2022-06-10 SHINGLES VACCINES (1 [facility] 03:41:56 of 2) [code = SHINGLES VACCINES (1 of 2)] Future Scheduled Test 2022-06-10 65+ PNEUMOCOCCAL [facility] 03:41:56 VACCINE (1 - PCV) [code = 65+ PNEUMOCOCCAL VACCINE (1 - PCV)] Future Scheduled Test 2022-06-10 INFLUENZA VACCINE [facility] 03:41:56 [code = INFLUENZA VACCINE] Future Scheduled Test 2022-06-10 COVID-19 VACCINE (#1) [facility] 03:41:56 [code = COVID-19 VACCINE (#1)] Future Scheduled Test 2022-06-10 SHINGLES VACCINES (1 [facility] 03:41:56 of 2) [code = SHINGLES VACCINES (1 of 2)] Future Scheduled Test 2022-06-10 65+ PNEUMOCOCCAL [facility] 03:41:56 VACCINE (1 - PCV) [code = 65+ PNEUMOCOCCAL VACCINE (1 - PCV)] Future Scheduled Test 2022-06-10 INFLUENZA VACCINE [facility] 03:41:56 [code = INFLUENZA VACCINE] Future Scheduled Test 2022-06-10 COVID-19 VACCINE (#1) [facility] 03:41:56 [code = COVID-19 VACCINE (#1)] Future Scheduled Test 2022-06-10 SHINGLES VACCINES (1 [facility] 03:41:56 of 2) [code = SHINGLES VACCINES (1 of 2)] Future Scheduled Test 2022-06-10 65+ PNEUMOCOCCAL [facility] 03:41:56 VACCINE (1 - PCV) [code = 65+ PNEUMOCOCCAL VACCINE (1 - PCV)] Future Scheduled Test 2022-06-10 INFLUENZA VACCINE [facility] 03:41:56 [code = INFLUENZA VACCINE] Future Scheduled Test 2022-06-03 COVID-19 VACCINE (#1) [facility] 10:51:39 [code = COVID-19 VACCINE (#1)] Future Scheduled Test 2022-06-03 SHINGLES VACCINES (1 [facility] 10:51:39 of 2) [code = SHINGLES VACCINES (1 of 2)] Future Scheduled Test 2022-06-03 65+ PNEUMOCOCCAL [facility] 10:51:39 VACCINE (1 - PCV) [code = 65+ PNEUMOCOCCAL VACCINE (1 - PCV)] Future Scheduled Test 2022-06-03 INFLUENZA VACCINE [facility] 10:51:39 [code = INFLUENZA VACCINE] Future Scheduled Test 2022-06-03 COVID-19 VACCINE (#1) [facility] 10:51:39 [code = COVID-19 VACCINE (#1)] Future Scheduled Test 2022-06-03 SHINGLES VACCINES (1 [facility] 10:51:39 of 2) [code = SHINGLES VACCINES (1 of 2)] Future Scheduled Test 2022-06-03 65+ PNEUMOCOCCAL [facility] 10:51:39 VACCINE (1 - PCV) [code = 65+ PNEUMOCOCCAL VACCINE (1 - PCV)] Future Scheduled Test 2022-06-03 INFLUENZA VACCINE [facility] 10:51:39 [code = INFLUENZA VACCINE] Future Scheduled Test 2022-05-04 COVID-19 VACCINE (#1) [facility] 10:11:22 [code = COVID-19 VACCINE (#1)] Future Scheduled Test 2022-05-04 SHINGLES VACCINES (1 [facility] 10:11:22 of 2) [code = SHINGLES VACCINES (1 of 2)] Future Scheduled Test 2022-05-04 65+ PNEUMOCOCCAL [facility] 10:11:22 VACCINE (1 - PCV) [code = 65+ PNEUMOCOCCAL VACCINE (1 - PCV)] Future Scheduled Test 2022-05-04 INFLUENZA VACCINE [facility] 10:11:22 [code = INFLUENZA VACCINE] Future Scheduled Test 2022-05-04 COVID-19 VACCINE (#1) [facility] 10:11:22 [code = COVID-19 VACCINE (#1)] Future Scheduled Test 2022-05-04 SHINGLES VACCINES (1 [facility] 10:11:22 of 2) [code = SHINGLES VACCINES (1 of 2)] Future Scheduled Test 2022-05-04 65+ PNEUMOCOCCAL [facility] 10:11:22 VACCINE (1 - PCV) [code = 65+ PNEUMOCOCCAL VACCINE (1 - PCV)] Future Scheduled Test 2022-05-04 INFLUENZA VACCINE [facility] 10:11:22 [code = INFLUENZA VACCINE] Future Scheduled Test 2022-03-05 HEPATITIS B VACCINES [facility] 16:21:11 (1 of 3 - 3-dose series) [code = HEPATITIS B VACCINES (1 of 3 - 3-dose series)] Future Scheduled Test 2022-03-05 COVID-19 VACCINE (#1) [facility] 16:21:11 [code = COVID-19 VACCINE (#1)] Future Scheduled Test 2022-03-05 SHINGLES VACCINES (1 [facility] 16:21:11 of 2) [code = SHINGLES VACCINES (1 of 2)] Future Scheduled Test 2022-03-05 65+ PNEUMOCOCCAL [facility] 16:21:11 VACCINE (1 - PCV) [code = 65+ PNEUMOCOCCAL VACCINE (1 - PCV)] Future Scheduled Test 2022-03-05 INFLUENZA VACCINE [facility] 16:21:11 [code = INFLUENZA VACCINE] Future Scheduled Test 2022-03-05 HEPATITIS B VACCINES [facility] 16:21:11 (1 of 3 - 3-dose series) [code = HEPATITIS B VACCINES (1 of 3 - 3-dose series)] Future Scheduled Test 2022-03-05 COVID-19 VACCINE (#1) [facility] 16:21:11 [code = COVID-19 VACCINE (#1)] Future Scheduled Test 2022-03-05 SHINGLES VACCINES (1 [facility] 16:21:11 of 2) [code = SHINGLES VACCINES (1 of 2)] Future Scheduled Test 2022-03-05 65+ PNEUMOCOCCAL [facility] 16:21:11 VACCINE (1 - PCV) [code = 65+ PNEUMOCOCCAL VACCINE (1 - PCV)] Future Scheduled Test 2022-03-05 INFLUENZA VACCINE [facility] 16:21:11 [code = INFLUENZA VACCINE] Future Scheduled Test 2022-03-05 HEPATITIS B VACCINES [facility] 16:21:11 (1 of 3 - 3-dose series) [code = HEPATITIS B VACCINES (1 of 3 - 3-dose series)] Future Scheduled Test 2022-03-05 COVID-19 VACCINE (#1) [facility] 16:21:11 [code = COVID-19 VACCINE (#1)] Future Scheduled Test 2022-03-05 SHINGLES VACCINES (1 [facility] 16:21:11 of 2) [code = SHINGLES VACCINES (1 of 2)] Future Scheduled Test 2022-03-05 65+ PNEUMOCOCCAL [facility] 16:21:11 VACCINE (1 - PCV) [code = 65+ PNEUMOCOCCAL VACCINE (1 - PCV)] Future Scheduled Test 2022-03-05 INFLUENZA VACCINE [facility] 16:21:11 [code = INFLUENZA VACCINE] Future Scheduled Test 2022-01-13 HEPATITIS B VACCINES [facility] 13:41:30 (1 of 3 - 3-dose series) [code = HEPATITIS B VACCINES (1 of 3 - 3-dose series)] Future Scheduled Test 2022-01-13 COVID-19 VACCINE (#1) [facility] 13:41:30 [code = COVID-19 VACCINE (#1)] Future Scheduled Test 2022-01-13 SHINGLES VACCINES (1 [facility] 13:41:30 of 2) [code = SHINGLES VACCINES (1 of 2)] Future Scheduled Test 2022-01-13 65+ PNEUMOCOCCAL [facility] 13:41:30 VACCINE (1 - PCV) [code = 65+ PNEUMOCOCCAL VACCINE (1 - PCV)] Future Scheduled Test 2022-01-13 INFLUENZA VACCINE [facility] 13:41:30 [code = INFLUENZA VACCINE] Instructions [facility] Family Practice Encounters Start End Encounter Admission Attending Care Care Encounter Source Date/Time Date/Time Type Type Clinicians Facility Department ID 2022-11-17 Outpatient [facility] [id number] [place] 07:14:25 [id number] [facility] 2022-11-16 Outpatient [facility] [id number] [place] 03:53:57 [facility] 2022-11-12 Outpatient [facility] [id number] [place] 12:44:28 [facility] 2022-11-09 Outpatient [facility] [id number] [place] 13:21:42 [facility] 2022-07-22 Outpatient [facility] [id number] [place] 04:18:07 [id number] [facility] 2022-05-13 Outpatient [facility] [id number] [place] 04:11:34 [facility] 2022-05-11 Outpatient [facility] [id number] [place] 10:24:30 [facility] 2021-12-07 Outpatient FRONTERA, [facility] [id number] [place] 01:04:26 HSAQUILLE [facility] 2021-09-28 Outpatient Pant, STLMLC STLMLC [id number] Common 09:25:14 [facility] 2021-09-14 Outpatient FRONTERA, [facility] [id number] [place] 01:03:28 SHAQUILLE [facility] 2021-09-10 Outpatient [facility] [id number] [place] 11:47:39 [facility] 2021-09-09 Outpatient [facility] [id number] [place] 12:29:58 [facility] 2021-09-08 Outpatient [facility] [id number] [place] 11:03:08 [facility] 2021-09-01 Outpatient [facility] [id number] [place] 09:00:00 [facility] 2021-07-09 Inpatient Gaudencio Samuel [facility] [id number] [facility] 13:55:00 Rox 54 2022-08-24 2022-08-24 [facility] [place] 11 [place] 00:00:00 00:00:00 [facility] ty DO: [address] [facility], HOSPITAL [place], [place] CLINIC, [address] NADIA , Ph. 2022-08-05 2022-08-05 Outpatient ERICKSON_R [facility] [id number] [place] 00:00:00 00:00:00 323 [facility] 2022-08-05 2022-08-05 Outpatient ERICKSON_R [facility] [id number] - [place] 00:00:00 00:00:00 411 [facility] 2022-06-07 2022-06-07 Outpatient [facility] [id number] [place] 08:45:00 08:45:00 Health 2022-05-12 2022-05-12 External FRONTERA, EXT MSRDP [id number] [place] 09:00:00 09:00:00 Contact SHAQUILLE RUSSO 350.1.13.58 H [facility] [id number] [id number] 2022-03-11 2022-03-11 Outpatient ERICKSON_R [facility] [id number] [place] 00:00:00 00:00:00 027 Commun i ty Hospita l [facility] 2022-03-11 2022-03-11 [facility] [place] 00:00:00 00:00:00 [facility] - ty DO: [address] [facility], [place], [place] CLINIC, [address] NADIA , Ph. [phone] 2022-01-22 2022-01-22 Outpatient ERICKSON_R [facility] [id number] [place] 00:00:00 00:00:00 909 [facility] 2021-12-04 2021-12-04 Orders Doctor ROX [id number] Univers 00:00:00 00:00:00 Only Unassigned, GUIDO 350.1.13.[address] [facility] 4.2.7.2.686 Cory as [phone] [place] [address] [place] 2021-11-03 2021-11-03 Outpatient ERICKSON_R [facility] [id number] - [place] 09:36:00 09:36:00 621 [facility] 2021-11-03 2021-11-03 Faraz [facility] [place] 00:00:00 00:00:00 Karthik [facility] DO: [address] [facility] [address], HOSPITAL Clinic [place], [place] CLINIC, [address] NADIA , Ph. 2021-11-03 2021-11-03 Outpatient Nadia [facility] [id number] 00:00:00 00:00:00 Faraz [id number] Karthik [id number] 2021-10-26 2021-10-26 Outpatient [facility] [id number] [place] 08:45:00 08:45:00 Health 2021-09-25 2021-09-25 Outpatient ERICKSON_R [facility] [id number] [place] 01:02:00 01:02:00 513 [facility] 2021-09-25 2021-09-25 Outpatient ERICKSON_R [facility] 74 - [place] 01:02:00 01:02:00 523 [facility] 2021-09-25 2021-09-25 Outpatient Nadia [facility] [id number] 00:00:00 00:00:00 Faraz [id number] Karthik [id number] 2021-09-25 2021-09-25 Faraz [facility] [place] 13 [place] 00:00:00 00:00:00 [facility] - ty DO: [address] [facility], HOSPITAL [facility] s [place], [place] CLINIC, [address] NADIA , Ph. 2021-09-22 2021-09-22 Outpatient ERICKSON_R [facility] [id number] [place] 08:19:00 08:19:00 510 [facility] 2021-09-04 2021-09-04 Outpatient Elective Bertini, [facility] [id number] [facility] 06:22:00 10:38:00 Rox 51 2021-08-20 2021-08-20 Outpatient R ALESSANDRA, [facility] [id number] Univers 08:00:00 08:00:00 NATALIA itjodie [facility] 2021-08-18 2021-08-18 Outpatient [facility] [id number] [facility] 08:10:00 08:10:00 14 2021-08-18 2021-08-18 Outpatient Elective Bertini, [facility] [id number] [facility] 08:10:00 08:10:00 Rox 14 2021-08-06 2021-08-06 Outpatient ERICKSON_R [facility] [id number] [place] 12:49:00 12:49:00 324 [facility] 2021-08-06 2021-08-06 Outpatient Nadia [facility] [id number] 00:00:00 00:00:00 Faraz [id number] Karthik [id number] 2021-08-06 2021-08-06 Faraz [facility] [place] 24 [place] 00:00:00 00:00:00 [facility] DO[facility] [address] [facility], H[facility]PITAL [facility] [place], [place] CLINIC, [address] NADIA , Ph. 2021-07-23 2021-07-23 Orders Doctor ROX [id number] [id number] Univers 00:00:00 00:00:00 Only Unassigned, GUIDO 350.1.13.10 [facility] 4.2.7.2.686 Cory as [phone] [address] 2021-07-09 2021-07-09 Telephone FABRICIO Dietz [id number] [facility] 00:00:00 00:00:00 [facility] 350.1.13.10 it y of [facility] 4.2.7.2.686 Cory as PITER?BLEA [phone] Sc paula [address] MEDICAL [facility] 2021-07-08 2021-07-08 Outpatient ERICKSON_R [facility] [id number] [place] 10:42:00 10:42:00 223 [facility] 2021-07-08 2021-07-08 Outpatient ERICKSON_R [facility] [id number] [place] 10:42:00 10:42:00 224 [facility] 2021-07-07 2021-07-07 Orders Doctor ROX [id number] [id number] [facility] 00:00:00 00:00:00 Only Unassigned, GUIDO 350.1.13.10 [facility] 4.2.7.2.686 Cory as [phone] [address] 2021-06-25 2021-06-25 Outpatient Elective Lizzie, [facility] [id number] [facility] 09:11:00 09:12:00 Rox 07 2021-06-25 2021-06-25 Outpatient [facility] [id number] [facility] 09:11:00 09:11:00 07 2021-06-15 2021-06-15 Office RAS Reis MSRDP 1.2.840.114 [id number] [place] 08:15:00 08:45:00 Visit Shaquille RUSSO 350.1.13.58 H ealt 9.2.7.2.686 [id number] 2021-06-15 2021-06-15 Office Frontera, EXT MSRDP 1.2.840.114 [id number] [place] 08:15:00 08:45:00 Visit Shaquille RUSSO 350.1.13.58 H ealth 9.2.7.2.686 [id number] 2021-06-12 2021-06-12 Telephone [facility] [id number] Univers 00:00:00 00:00:00 Vinita Love [facility] 350.1.13.10 it y of [facility] 4.2.7.2.686 Cory as PITER?BLEA [phone] Sc candyjesus [address] [facility] 2021-05-14 2021-05-14 Office [facility] 1.2.840.114 [id number] Univers 09:00:00 09:15:00 Visit Vinita ARELLANO 350.1.13.10 it y of [place] 4.2.7.2.686 Cory as PITER?BLEA [id number] Sc paula [address] [facility] 2021-05-14 2021-05-14 Outpatient R MIRELA [facility] [id number] Univers 09:00:00 09:00:00 VINITA ity of [facility] 2021-05-14 2021-05-14 Letter Doctor ROX 1.2.840.114 [id number] Univers 00:00:00 00:00:00 (Out) Unassigned, GUIDO 350.1.13.10 [facility] 4.2.7.2.686 Cory as [id number] [address] 2021-05-14 2021-05-14 Letter Doctor ROX 1.2.840.114 [id number] Univers 00:00:00 00:00:00 (Out) Unassigned, GUIDO 350.1.13.10 [facility] 4.2.7.2.686 Cory as [phone] [address] 2021-05-13 2021-05-13 Outpatient ERICKSON_R [facility] [id number] [place] 09:30:00 09:30:00 121 [facility] 2021-05-13 2021-05-13 Outpatient ERICKSON_R [facility] [id number] [place] 09:30:00 09:30:00 229 Commun [facility]ics 2021-05-06 2021-05-06 Orders Doctor ROX 1.2.840.114 [id number] 00:00:00 00:00:00 Only Unassigned, GUIDO 350.1.13.[address] [facility] 4.2.7.2.686 Cory as [phone] [facility] 00[address] [place] 2020-10-30 2020-10-30 Outpatient Miller_S_AH VFP VFP [id number] [facility] 02:31:00 02:31:00 [id number] Family Practic e 2020-08-28 2020-08-28 Outpatient Rebekah-Mbayo VFP VFP 791 7 [facility] 06:09:00 06:09:00 _A_AH 27952 Family Practic e 2020-08-25 2020-08-25 Outpatient Rebekah-Mbayo VFP VFP [id number] [facility] 05:48:00 05:48:00 _A_AH 86101 Family Practic e 2020-08-22 2020-08-22 Outpatient Rebekah-Mbayo VFP VFP [id number] [facility] 05:31:00 05:31:00 _A_AH 53124 Family Practic e 2020-08-22 2020-08-22 Nidia VFP [place] - [id number] V illage 00:00:00 00:00:00 Rebekah-Mbay [facility] Fam brandi kaur ELECTRICIAN DECK: Medical - Practi c [address] VM_[email or web address]_V@H_ e [facility], [address] [address], [place] [address] , Ph. 2019-11-17 2019-11-17 Outpatient Rebekah-Mbayo VFP VFP [id number] [facility] 12:13:00 12:13:00 _A_AH 74934 Family Practic e 2019-11-17 2019-11-17 Outpatient Rebekah-Mbayo VFP VFP [id number] [facility] 12:13:00 12:13:00 _A_AH 79507 Family Practic e 2019-11-06 2019-11-06 Outpatient Rebekah-Mbayo VFP VFP [id number] [id number] [facility] 01:13:00 01:13:00 _A_AH 34953 Family Practic e 2019-10-12 2019-10-12 Outpatient Rebekah-Mbayo VFP VFP [id number] [facility] 02:56:00 02:56:00 _A_AH 96663 Family Practic e 2019-10-11 2019-10-11 Outpatient Rebekah-Mbayo VFP VFP [id number] [facility] 07:18:00 07:18:00 _A_AH 90307 Family Practic e 2019-09-24 2019-09-24 Outpatient Rebekah-Mbayo VFP VFP [id number] [facility] 10:59:00 10:59:00 _A_AH 76615 Family Practic e 2019-09-20 2019-09-20 Outpatient Rebekah-Mbayo VFP VFP [id number] [facility] 10:26:00 10:26:00 _A_AH 45223 Family Practic e 2019-09-17 2019-09-17 Nidia VFP [place] - [id number] V illage 00:00:00 00:00:00 [facility] Fam brandi kaur ELECTRICIAN DECK: Medical - Practi c [address] LEBRON_HOU_V@_ e [facility], [place] [address], [place] [address] , Ph. 2019-08-08 2019-08-08 Outpatient Rebekah-Mbayo VFP VFP [id number] [facility] 01:06:00 01:06:00 _A_AH 51136 Family Practic e 2015-08-27 2015-08-27 Outpatient MHIE MHIE [id number] [place] 14:00:00 14:00:00 03 jamey Villareal 2015-07-10 2015-07-10 Outpatient MHIE MHIE [id number] 765 [place] 10:30:00 10:30:00 02 jamey Villareal 2015-03-20 2015-03-20 Outpatient MHIE MHIE [id number] [place] 12:00:00 12:00:00 01 jamey Villareal 2015-02-05 2015-02-06 Outpt Diag nullFlavo [facility] [id number] [facility] 14:25:00 04:59:00 Services r Outpatient 00 l [facility] [place] 2015-02-05 2015-02-05 Outpatient [facility] [id number] [place] 09:30:00 09:30:00 00 l Mono Results Test Description Test Time Test Comments [...] by RT-PCR SARS-CoV-2 PCR Result:) Comment: surgery [id number] Blood Count Auto [id number] 09:00:00 Test Item Value Reference Range Interpretation [...] code = NRBCP) 0 % Basic Metabolic [id number] 09:00:00 Test Item Value Reference Range Interpretation [...] CA) 9.3 mg/dL 8.3-10.6 N UA, Urinalysis [id number] 08:50:00 Test Item Value Reference Range Interpretation Comments Color,Urine (test code = UCOL) Yellow Yellow Clarity,Urine (test code = Clear Clear UCLAR) Ph, Urine (test code = UPH) 6.0 5.0-9.0 N Specific [place],Urine (test 1.020 1.005-1.030 N code = USG) [...] mg/dL Negative code = ULEU) UC, Urine [id number] 08:50:00 Test Item Value Reference Range Interpretation Comments UC, Urine Culture (test NO GROWTH AFTER 48 code = UC) HOURS Sars-CoV-2/FLU A/B RSV [id number] 10:40:00 Test Item Value Reference Range Interpretation [...] code = SARS-CoV-2 PCR Result:) EKG Electrocardiogram [facility] [address] [place] [address] Patient Name: ROX KNOWLES Medical Record#: [id number] Address: [address] [place] [address] City/State/Zip: [place] [address]: Rox Samuel MD Insurance: Workers Comp Other /Age/Sex: 1945/76/M Self Pay Admit/Reg Date: 06/25/[address]: Rox Samuel MD Location: [facility]/ PCP: PCP,UNKNOWN Date of Service: 06/25/21 Order (s): EKG Electrocardiogram CPT Code: 30619 Report Number: [id number] Reason for Exam: pre op testing SINUS BRADYCARDIA Nonspecific intraventricular conduction delay Abnormal T, consider ischemia, lateral leads Summary: Abnormal ECG Dictated By: Titi Bauman MD 06/25/211055 Signed By: Titi Bauman MD 06/26/21819 TD/TT: 06/25/211055 Tech: MWH02 cc: [email or web address]; PCPUNK* Rox Samuel MD; PCP,UNKNOWN Notes Date/Time Note Provider Source 2021-09-04 09:00:00-00:00 [facility] [address] [place] [address] Urology Operative Note Signed Patient: Rox Knowles Medical Record#: [id number] : 1945 Acct:[id number] Age/Sex: 76 / M ADM Date: 09/04/21 Loc: [facility] Room: Report Number: [id number]: Rox Samuel MD Urology Operative Note Date of Procedure: 09/02/21 Time of Procedure: 08:40 Preoperative Diagnosis: Neurogenic bladder Post-operative diagnosis: same as preoperative d iagnosis Procedure Performed: Retrograde urethrogram, cys toscopy Surgical Service: Urology Primary Surgeon: MD Lizzie Election Assistant: MD JACQUELINE Consent Obtained: obtained Time Out Performed: Yes Anesthesia: general Detailed Description of Procedure: INDICATIONS: This patient is a 76 year-old male, who had an initial occurrence neurogenic bladder, patient complains of difficu lty self catheterization. We recommended a retrograde urethrogram, cystoscopy and possible DVIU . After risk and benefit discussed with the patient, patient was taken to the operating room at this time for their ope ration. PROCEDURE IN DETAIL: The pat ient was brought to the cystoscopy suite. Patient identification was verified. Preoperative time out was completed per institutional standards. After general anesthesia obtained, patient was placed in the lateral decubitus position and his perineum and genitalia were sterilely prepped and draped in usual fashion. He had been given IV antibiotic for prophylaxis. We then shot a retrograde ureth rogram in the lateral decubitus position. We noted no signs of urethral stricture or narrowing on th e anterior and posterior urethra. We then repositioned the patient to the dorsal lithotomy positio n. Patient was again prepped and draped. At this time we intubated a 21 Hebrew rigid cystoscope i nto the meatus of the urethra. The urethra was traversed under direct visualization, and noted a s mall area narrowing, however the rigid cystoscope was able to passed with ease. Once we entered t he bladder we noted bilateral ureteral orifices in anatomical position. No mass or foreign body wit hin the bladder. We then drained the bladder. The patient was then returned to the supine posit ion, awakened, extubated, and taken on a stretcher to the recovery room in satisfactory condition. Findings: - patent anterior and insurance claim representative ior urethra noted on retrograde urethrogram, no signs of obstruction - cystoscopy noted a small a charity of narrowing however was able to pass a 21 Hebrew rigid cystoscope with easy - normal appearing bladder with no mass or forei gn body noted Wound Class: CC - clean-contaminated Estimated Blood Loss: 1 cc IV Fluids (ml): Per anesthesia record Urine Output (mls): None recorded Drains: None Complications: none Condition: stable Disposition: PACU Dictated By: Mark Morrison MD, PGY Dictated By: Rox Samuel MD Signed By: Mark Morrison MD, PGY 09/04/21 09 Rox Samuel MD 09/04/211014 Rox Samuel MD 09/04/211014 DD/ 9 TD/TT: 09/04/21899 Pressure Sealer And Tester: ABRAM cc: ASHLEY; ABRAM; ELISABETNO* Rox Samuel MD; PcpMd GIDEON Gross; Mark Morrison MD, PGY 2021-09-04 08:59:00-00:00 [facility] [address] [place] [address] Discharge Summary Signed Patient: Rox Knowles Medical Record#: [id number] : 1945 Acct:[id number] Age/Sex: 76 / M Admit/Reg Date: 09/04/21 Loc: [facility] Room: Report Number: [id number] Attending Dr: Rox Samuel MD DS: Providers Primary Care Provider: Md Cordell Attending physician on admission: Rox Samuel Attending physician on discharge: Rox Samuel Discharging clinician: Mark Morrison DS: Diagnosis - Discharge Diagnosis (1) Neurogenic bladder Status: Acute DS: Summary Date of Admit: 09/02/2021 Date of Encounter: 09/04/21 Date of Discharge: 09/04/21 Hospital course: Same-day surgery discharge in stable condition Time spent discussing smoking cessation with pat ient: 3 to 10 minutes Family Meetings (Please see Tetryl Screen Operator's Note ): Yes - Status at Discharge Functional status at discharge: wheelchair bound Overall status at discharge: patient is back to baseline - Time Spent with Patient Total time spent providing and/or coordinating d ischarge services: Less than 30 minutes - Attestation Attestation: I have reviewed all pertinent labor atory findings. Confirm Results Attestation: Yes Results check: Pass Exam Vital signs: Temp Pulse Resp BP Pulse Ox 36.2 C L 52 L 14 121/73 99 09/04/21 07:53 09/04/21 07:53 09/04/21 07:53 07:53 09/04/21 07:53 Body Mass Index (BMI): 26.6 Body Habitus: overweight General Appearance: oriented x3, cooperative, lo oks stated age Head Exam: Present: atraumatic Eye Exam: Present: normal appearance - Respiratory Exam Present: normal breath sounds - Cardiovascular Exam Present: normal heart sounds - Abdominal Exam Abdominal: Present: non-tender, no organomegaly - Rectal Exam Patient deferred: visual exam - Exam exam male general: Present: normal inspection DS: Data Did Patient have any Procedures?: Yes Procedures Performed: Retrograde urethrogram, cy stoscopy Does Patient have Pending Results?: No Discharge Plan - Disposition Disposition: Home or Self-Care - Patient/Caregiver Discharge Instructions Discharge Diagnosis:: Neurogenic bladder Condition: Good Diet: Regular Wound Care Instructions: Continue straig ht catheterization with coude catheter - Medications Prescriptions: No Action amlodipine [Norvasc] 5 mg Tablet 5 mg PO QPM atorvastatin [Lipitor] 20 mg Tablet 20 mg PO QHS Eliquis 5 mg Tablet 5 mg PO BID lansoprazole [Prevacid] 15 mg Capsule,Delayed R elease(Dr/Ec) 10 mg PO QPM solifenacin [Vesicare] 10 mg Tablet 10 mg PO QHS tamsulosin [Flomax] 0.4 mg Capsule 0.8 mg PO QPM - Follow up Plan Follow up with: PcpMd Gross MD [Primary Care Provider] - - Discharge Data Reason For Visit: URGE INCONTINENCE Primary Care Provider: PcpMd Renato Attending Provider: Rox Samuel - Discharge Orders Discharge Orders: Discharge Per Same Day Surgery Criteria (Routine ); Ordered 09/04/21 Ordered By: Mark Morrison - Discharge Information Print Language: Jordanian Quality - Smoking Status Smoking Status: Unknown if ever smoked Dictated By: Mark Morrison MD, PGY Signed By: Mark Morrison MD, PGY 09/04/21 09 Rox Samuel MD 09/04/21 1015 Rox Samuel MD 09/04/21 1015 DD/ TD/TT: 09/04/2159 Pressure Sealer And Tester: ABRAM cc: ASHLEY; ABRAM; PCPNO* Rox Samuel MD; PcpMd GIDEON Gross; Mark Morrison MD, PGY
[2022-12-27] MEDS ORDERED: LIDOCAINE 1% 20 ML MDV ONE (19:57)
--- NOTE | 2022-12-27 20:06 | RAD REPORT ---
EXAM DESCRIPTION: CT - Head Brain Wo Cont - 12/27/2022 7:56 pm CLINICAL HISTORY: TRAUMA Fall, trauma, head injury COMPARISON: <Comparisons> TECHNIQUE: All CT scans are performed using dose optimization technique as appropriate and may inclu de automated exposure control or mA/KV adjustment according to patient size. FINDINGS: No intracranial hemorrhage, hydrocephalus or extra-axial fluid collection.No areas of brai n edema or evidence of midline shift. The paranasal sinuses and mastoids are clear. The calvarium is intact. IMPRESSION: No acute intracranial abnormality.
--- NOTE | 2022-12-27 20:41 | ER ---
Nurse's Notes [facility] Name: Lam Josue Age: 77 yrs Sex: Male : 1945 Arrival Date: 12/27/2022 Time: 19:18 Bed 12 Private MD: Diagnosis: Unspecified injury of head, initial encounter;Laceration without foreign body of scalp Presentation: 12/27 19:35 Chief complaint: Patient states: "Around 3pm today, I stumbled into a metal gate. I cut mb9 my left forehead". Coronavirus screen: Vaccine status: Patient reports receiving the 2nd dose of the covid vaccine. Ebola Screen: No symptoms or risks identified at this time. Complicating Factors: There are no complicating factors for this patient. Initial Sepsis Screen: Does the patient meet any 2 criteria? No. Patient's initial sepsis screen is negative. Does the patient have a suspected source of infection? No. Patient's initial sepsis screen is negative. Risk Assessment: Do you want to hurt yourself or someone else? Patient reports no desire to harm self or others. Onset of symptoms was December 27, 2022. 19:35 Method Of Arrival: Wheelchair mb9 19:35 Acuity: RICHIE 4 mb9 Triage Assessment: 19:37 General: Appears in no apparent distress. Behavior is calm, cooperative. Pain: mb9 Complains of pain in forehead Pain does not radiate. Quality of pain is described as throbbing. Neuro: Polanco Agitation-Sedation Scale (RASS): 0 - Alert and Calm Level of Consciousness is awake, alert, obeys commands, Oriented to person, place, time, situation, Appropriate for age. Cardiovascular: Patient's skin is warm and dry. Respiratory: Airway is patent Respiratory effort is even, unlabored, Respiratory pattern is regular, symmetrical. Derm: Skin is pink, warm \\T\\ dry. Injury Description: Laceration sustained to left forehead is clean, 2.6 to 7.5 cm long, not bleeding. Historical: - Allergies: 19:37 No Known Allergies; mb9 - Home Meds: 19:37 Norvasc Oral [Active]; mb9 - PMHx: 19:37 GERD; Hyperlipidemia; Hypertension; mb9 - PSHx: 19:37 None; mb9 - Immunization history:: Adult Immunizations up to date. - Social history:: Smoking status: Patient denies any tobacco usage or history of. Screenin:34 [facility] ED Fall Risk Assessment (Adult) History of falling in the last 3 months, mb9 including since admission No falls in past 3 months (0 pts) Confusion or Disorientation No (0 pts) Intoxicated or Sedated No (0 pts) Impaired Gait No (0 pts) Mobility Assist Device Used No (0 pt) Altered Elimination No (0 pt) Score/Fall Risk Level 0 - 2 = Low Risk Oriented to surroundings, Maintained a safe environment, Educated pt \\T\\ family on fall prevention, incl call for assistance when getting out of bed. Abuse screen: Denies threats or abuse. Nutritional screening: No deficits noted. Tuberculosis screening: No symptoms or risk factors identified. Assessment: 19:48 Reassessment: see triage assessment. mb9 19:48 Reassessment: Pt taken to CT via wheelchair. mb9 20:34 Reassessment: No changes from previously documented assessment. Patient and/or family mb9 updated on plan of care and expected duration. Pain level reassessed. Patient is alert, oriented x 3, equal unlabored respirations, skin warm/dry/pink. Vital Signs: 19:35 BP 145 / 85; Pulse 84; Resp 18; Temp 98.2; Pulse Ox 100% on R/A; Weight 77.11 kg; mb9 Height 5 ft. 8 in. ; 19:35 Body Mass Index 25.85 (77.11 kg, 172.72 cm) mb9 ED Course: 19:23 Patient arrived in ED. ag3 19:29 Carmen Heath FNP-C [facility]. kb 19:29 Ismael Casillas MD is Attending Physician. kb 19:35 Arm band placed on. mb9 19:37 Triage completed. mb9 19:38 Bed in low position. Call light in reach. Side rails up X 1. Client placed on mb9 continuous cardiac and pulse oximetry monitoring. NIBP monitoring applied. 19:41 Greer Mora, ISABELA is Primary Nurse. mb9 19:58 CT Head Brain wo Cont In Process Unspecified. EDMS 20:35 No provider procedures requiring assistance completed. Patient did not have IV access mb9 during this emergency room visit. Administered Medications: 20:34 Drug: Lidocaine Infiltration (1 %) 1 vials Volume: 20 ml; Route: Infiltration; mb9 20:41 Drug: Acetaminophen PO 1000 mg Route: PO; mb9 20:41 Drug: Ondansetron PO 4 mg Route: PO; mb9 Medication: 20:34 VIS not applicable for this client. mb9 Outcome: 20:41 Discharge ordered by . tita 20:43 Discharged to home ambulatory. mb9 20:43 Condition: stable 20:43 Discharge instructions given to patient, Instructed on discharge instructions, follow up and referral plans. Demonstrated understanding of instructions, follow-up care. 20:54 Patient left the ED. mb9 Signatures: Dispatcher [employer] EDMS Carmen Heath, YOUTH COORDINATOR-C YOUTH COORDINATOR-Ivelisse Leung Greer Jeronimo, RN RN mb9
--- NOTE | 2022-12-27 20:41 | EDPHYS ---
Physician Documentation [facility] Name: Lam Josue Age: 77 yrs Sex: Male : 1945 Arrival Date: 12/27/2022 Time: 19:18 Bed 12 Private MD: ED Physician Ismael Casillas HPI: 12/27 22:54 This 77 yrs old Black Male presents to ER via Wheelchair with complaints of Laceration kb To Forehead. 22:54 The patient has a laceration related to: stumbled and hit head on metal gate occurred kb outdoors, and there are no complicating factors. The laceration(s) is(are) located on the left side of forehead. Onset: The symptoms/episode began/occurred just prior to arrival. Associated signs and symptoms: The patient has no apparent associated signs or symptoms. The patient has not experienced similar symptoms in the past. The patient has not recently seen a physician. 22:54 Patient reports he stumbled and hit his head on a metal gate causing laceration to kb forehead. Denies LOC. Denies dizziness. Historical: - Allergies: 19:37 No Known Allergies; mb9 - Home Meds: 19:37 Norvasc Oral [Active]; mb9 - PMHx: 19:37 GERD; Hyperlipidemia; Hypertension; mb9 - PSHx: 19:37 None; mb9 - Immunization history:: Adult Immunizations up to date. - Social history:: Smoking status: Patient denies any tobacco usage or history of. ROS: 22:52 Constitutional: Negative for fever, chills, and weight loss. kb 22:52 Skin: Positive for laceration(s), of the left side of forehead. 22:52 Neuro: Positive for headache. 22:52 All other systems are negative. Exam: 22:52 Constitutional: This is a well developed, well nourished patient who is awake, alert, kb and in no acute distress. Eyes: Pupils equal round and reactive to light, extra-ocular motions intact. Lids and lashes normal. Conjunctiva and sclera are non-icteric and not injected. Cornea within normal limits. Periorbital areas with no swelling, redness, or edema. ENT: Moist Mucous membranes Cardiovascular: Regular rate and rhythm with a normal S1 and S2. No gallops, murmurs, or rubs. No pulse deficits. Respiratory: Respirations even and unlabored. No increased work of breathing. Talking in full sentences Abdomen/GI: Soft, non-tender. No distention Skin: Warm, dry with normal turgor. Normal color. MS/ Extremity: Pulses equal, no cyanosis. Neurovascular intact. Full, normal range of motion. Neuro: Awake and alert, GCS 15, oriented to person, place, time, and situation. Moves all extremities. Normal gait. 22:52 Head/face: Noted is no obvious of injury or deformity except a laceration(s), that is superficial, 4 cm(s), of the left side of forehead. Vital Signs: 19:35 BP 145 / 85; Pulse 84; Resp 18; Temp 98.2; Pulse Ox 100% on R/A; Weight 77.11 kg; mb9 Height 5 ft. 8 in. ; 19:35 Body Mass Index 25.85 (77.11 kg, 172.72 cm) mb9 Laceration: 20:40 Wound Repair of 4cm ( 1.6in ) subcutaneous laceration to left side of forehead. kb Irregularly shaped.. Distal neuro/vascular/tendon intact. Anesthesia: Wound infiltrated with 3 mls of 1% lidocaine. Wound prep: Extensive cleansing with hibiclenz by me, Wound irrigation with saline by me. Skin closed with 7 5-0 fast absorbing gut using simple sutures and sterile technique. Patient tolerated well. MDM: 19:29 Patient medically screened. kb 22:52 Differential diagnosis: superficial laceration, ICH, concussion. Data reviewed: vital kb signs, nurses notes. Historians other than the Patient: Spouse/Significant Other: . Counseling: I had a detailed discussion with the patient and/or guardian regarding: the historical points, exam findings, and any diagnostic results supporting the discharge/admit diagnosis, radiology results, the need for outpatient follow up, a family practitioner, to return to the emergency department if symptoms worsen or persist or if there are any questions or concerns that arise at home. 12/27 19:34 Order name: CT Head Brain wo Cont; Complete Time: 20:11 kb 12/27 19:34 Order name: Dressing - Wound; Complete Time: 20:34 kb 12/27 19:34 Order name: Gloves, Sterile; Complete Time: 19:48 kb 12/27 19:34 Order name: Prolene, Sutures; Complete Time: 19:48 kb 12/27 19:34 Order name: Setup Suture Tray; Complete Time: 19:48 kb Administered Medications: 20:34 Drug: Lidocaine Infiltration (1 %) 1 vials Volume: 20 ml; Route: Infiltration; mb9 20:41 Drug: Acetaminophen PO 1000 mg Route: PO; mb9 20:41 Drug: Ondansetron PO 4 mg Route: PO; mb9 Disposition Summary: 12/27/22 20:41 Discharge Ordered Location: Home kb Condition: Stable kb Diagnosis - Unspecified injury of head, initial encounter kb - Laceration without foreign body of scalp kb Followup: kb - With: Emergency Department - When: As needed - Reason: Worsening of condition Followup: kb - With: Private Physician - When: 2 - 3 days - Reason: Recheck today's complaints, Continuance of care, Re-evaluation by your physician Discharge Instructions: - Discharge Summary Sheet kb - Laceration Care, Adult, [id number] kb - Head Injury, Adult, [id number] kb Forms: - Medication Reconciliation Form kb - Thank You Letter kb - Antibiotic Education kb - Prescription Opioid Use kb - Patient Portal Instructions kb - Leadership Thank You Letter kb Signatures: Dispatcher [employer] Carmen Johnson, NURSE STAFF-C NURSE STAFF-Greer Crane, RN RN mb9
[2022-12-27] MEDS ORDERED: ACETAMINOPHEN 500 MG TAB ONE (20:46)
[2022-12-27] MEDS ORDERED: ONDANSETRON 4 MG (ODT) TAB ONE (20:49)
[2022-12-27 21:02] VITALS: BP 145/85; TEMP 98.2; O2SAT 100
== END 2022-12-27 20:54 | disposition home or self-care (01) ==
LOC: ER 19:18
PROC: 0HQ0XZZ Repair Scalp Skin, External Approach (ICD-10-PCS; principal; 2022-12-27)
DX: S01.01XA Laceration without foreign body of scalp, initial encounter (principal)
CPT/HCPCS: 70450; 99283; 12002; Q0162; J2001

== ENCOUNTER 2024-05-25 08:46 | Emergency (ER) | payer OTHER ==
[2024-05-25] MEDS ORDERED: KETOROLAC 30 MG/ML INJ ONE (08:57)
--- NOTE | 2024-05-25 09:21 | RAD REPORT ---
EXAM: CT brain without contrast HISTORY: HEADACHE COMPARISON: 12/27/2022 TECHNIQUE: Multiple contiguous axial images were obtained and a CT of the brain without contrast. Sag ittal and coronal reformats were performed. One or more of the following dose reduction techniques were used: Automated exposure control, adjust ment of the mA and/or kV according to patient size, and/or iterative reconstruction. FINDINGS: No evidence of hydrocephalus, intracranial hemorrhage, or extra-axial fluid collection. The brain is normal in morphology. No evidence of midline shift or areas of brain edema. The calvarium is intact. The visualized paranasal sinuses and mastoid air cells are essentially clear . IMPRESSION: No evidence of acute intracranial abnormality.
[2024-05-25 09:35] LABS: Absolute Eosinophils 0.1 K/uL (0-0.5); Absolute Lymphocytes (CBC) 1.4 K/uL (0.7-4.9); Absolute Monocytes 0.3 K/uL (0.1-1.3); Absolute Neutrophil 2.3 K/uL (1.8-8.0); Basophils % 0.6 % (0-1.3); Eosinophils % 2.1 % (0-4.4); Hematocrit 43.2 % (39.6-49.0); Hemoglobin 14.3 g/dL (13.6-17.9); Lymphocytes % 34.2 % (15.3-44.8); MCH 29.5 pg (27.0-35.0); MCHC 33.1 g/dL (32.0-36.0); MCV 89.3 fL (80-100); MPV 6.7 fL (7.6-11.3); Monocytes % 7.6 % (3.3-12.3); Neutrophils % 55.5 % (41.7-73.7); Nucleated Red Blood Cells % 0.2 % (0-0); Platelets 243 thou/uL (152-406); RBC Red Blood Cell Count 4.84 M/uL (4.33-5.43); Red Cell Distribution Width 14.4 % (12.1-15.2)
[2024-05-25 09:39] LABS: PT Prothrombin Time 16.4 SECONDS (9.4-12.5); PTT, Activated Partial Thromb 37.8 SECONDS (24.3-36.9); Protime INR 1.48
[2024-05-25 09:42] LABS: Albumin 3.6 g/dL (3.4-5.0); Albumin/Globulin Ratio 0.9 (1.1-1.8); Anion Gap 6.2 mEq/L (5.0-15.0); Bilirubin Direct 0.2 mg/dL (0-0.2); Bilirubin Indirect, Calculated 0.3 mg/dL (0.2-0.8); Bilirubin Total 0.5 mg/dL (0.2-1.0); Globulin 4.1 g/dL (2.3-3.5); Magnesium 2.1 mg/dL (1.6-2.4); Potassium 4.2 mEq/L (3.5-5.1); Protein, Total 7.7 g/dL (6.4-8.2)
--- NOTE | 2024-05-25 09:49 | ER ---
Nurse's Notes [facility] Name: Lam Josue Age: 79 yrs Sex: Male : 1945 Arrival Date: 05/25/2024 Time: 08:46 Bed 5 Private MD: Diagnosis: Headache Presentation: 05/25 08:50 Coronavirus screen: Client denies travel out of the [place] in the last 14 days. Ebola ll1 Screen: Patient denies travel to an Ebola-affected area in the 21 days before illness onset. Initial Sepsis Screen: Does the patient meet any 2 criteria? No. Patient's initial sepsis screen is negative. Does the patient have a suspected source of infection? No. Patient's initial sepsis screen is negative. Risk Assessment: Do you want to hurt yourself or someone else? Patient reports no desire to harm self or others. 08:50 Method Of Arrival: Wheelchair ll1 08:54 Chief complaint: Patient states: L sided SEGOVIA off/on since yesterday. Had severe episode ll1 this morning. Onset of symptoms was May 24, 2024. 08:54 Acuity: RICHIE 3 ll1 Triage Assessment: 08:55 General: Appears uncomfortable, Behavior is calm, cooperative, appropriate for age. ll1 Pain: Complains of pain in L sided SEGOVIA Pain currently is 5 out of 10 on a pain scale. Quality of pain is described as aching, Pain began 1 day ago. Neuro: Reports headache in left parietal area. 10:06 Headache History: The patient has had previous headaches and this one is similar to bp previous episodes. Pain: Also complains of no other associated symptoms. Historical: - Allergies: 08:49 No Known Allergies; ll1 - PMHx: 08:49 GERD; Hyperlipidemia; Hypertension; ll1 - Immunization history:: Adult Immunizations up to date. - Infectious Disease History:: Denies. - Social history:: Smoking status: Patient denies any tobacco usage or history of. Screenin:22 [facility] ED Fall Risk Assessment (Adult) History of falling in the last 3 months, ph including since admission No falls in past 3 months (0 pts) Confusion or Disorientation No (0 pts) Intoxicated or Sedated No (0 pts) Impaired Gait No (0 pts) Mobility Assist Device Used No (0 pt) Altered Elimination No (0 pt) Score/Fall Risk Level 0 - 2 = Low Risk Oriented to surroundings, Maintained a safe environment, Hourly rounding (assess needs \T\ fall precautionary measures) done. Abuse screen: Denies threats or abuse. Denies injuries from another. Nutritional screening: No deficits noted. Tuberculosis screening: No symptoms or risk factors identified. Assessment: 09:23 General: Appears in no apparent distress. Behavior is calm, cooperative. Pain: ph Complains of pain in left synagogue. Neuro: Level of Consciousness is awake, alert, obeys commands, Oriented to person, place, time, situation, Reports headache Denies weakness blurred vision dizziness. Cardiovascular: Capillary refill < 3 seconds in bilateral fingers Patient's skin is warm and dry. Respiratory: Airway is patent Respiratory effort is even, unlabored. GI: Patient currently denies nausea, vomiting. Derm: Skin is pink, warm \T\ dry. Musculoskeletal: Circulation, motion, and sensation intact. Range of motion: intact in all extremities. Vital Signs: 08:54 BP 134 / 83; Pulse 60; Resp 17; Temp 97.9; Pulse Ox 100% on R/A; Weight 79.38 kg; ll1 Height 5 ft. 8 in. ; Pain 5/10; 09:24 BP 139 / 93; Pulse 61; Resp 18; Pulse Ox 99% on R/A; ph 08:54 Body Mass Index 26.61 (79.38 kg, 172.72 cm) ll1 08:54 Pain Scale: Adult ll1 ED Course: 08:49 Patient arrived in ED. mr 08:49 Gabriela Hare MD is Attending Physician. sp3 08:49 Arm band placed on Patient placed in an exam room, on a stretcher. ll1 08:54 Kiran Saldaña, ISABELA is Primary Nurse. bp 08:55 Triage completed. ll1 09:15 Initial lab(s) drawn, by ED staff, sent to lab. Inserted saline lock: 20 gauge in right ph antecubital area, using aseptic technique. Blood collected. Flushed with 10 mL NS. 09:18 CT Head Brain wo Cont In Process Unspecified. EDMS 09:22 Patient has correct armband on for positive identification. Bed in low position. Call ph light in reach. Side rails up X 1. Pulse ox on. NIBP on. Door closed. Noise minimized. Warm blanket given. Pillow given. 09: Basic Metabolic Panel Sent. ph 09: CBC with Diff Sent. ph 09: Magnesium Sent. ph 09: Hepatic Function Sent. ph 09: Ptt, Activated Sent. ph 10:06 No provider procedures requiring assistance completed. IV discontinued, intact, bp bleeding controlled, No redness/swelling at site. Pressure dressing applied. Administered Medications: : Drug: Ketorolac IVP 15 mg IVP once Route: IVP; Site: right antecubital; ph 10:06 Follow up: Response: No adverse reaction bp Medication: : VIS not applicable for this client. ph Outcome: :49 Discharge ordered by sp3 10:06 Discharged to home via wheelchair, with family, bp 10:06 Condition: stable 10:06 Discharge instructions given to patient, Instructed on discharge instructions, follow up and referral plans. Demonstrated understanding of instructions, follow-up care, 10:06 Patient left the ED. bp Signatures: Dispatcher [employer] EDMS Greer Escobedo, Reg Reg mr Audra Garcia, ISABELA RN Kiran Orozco, ISABELA RN Sylvia Urias RN RN ll1 Gabriela Hare MD MD sp3
--- NOTE | 2024-05-25 09:49 | EDPHYS ---
Physician Documentation [facility] Name: Lam Josue Age: 79 yrs Sex: Male : 1945 Arrival Date: 05/25/2024 Time: 08:46 Bed 5 Private MD: ED Physician Gabriela Hare HPI: 05/25 08:58 This 79 yrs old Black Male presents to ER via Wheelchair with complaints of Headache. sp3 08:58 79-year-old male with history of hyperlipidemia, hypertension presents with left sp3 parietal headache that was there when he woke up. Patient states it is sharp and stabbing in nature and has somewhat resolved but is now "trying to come back". He denies any other symptoms including vision changes, neurological symptoms, neck pain, chest pain, shortness of breath, back pain, extremity pain, known sick contacts, travel history, trauma, memory loss, change in speech, or any other signs or symptoms on ROS at this time.. Historical: - Allergies: 08:49 No Known Allergies; ll1 - PMHx: 08:49 GERD; Hyperlipidemia; Hypertension; ll1 - Immunization history:: Adult Immunizations up to date. - Infectious Disease History:: Denies. - Social history:: Smoking status: Patient denies any tobacco usage or history of. ROS: 08:59 Constitutional: Negative for fever, chills, and weight loss, Eyes: Negative for injury, sp3 pain, redness, and discharge, ENT: Negative for injury, pain, and discharge, Neck: Negative for injury, pain, and swelling, Cardiovascular: Negative for chest pain, palpitations, and edema, Respiratory: Negative for shortness of breath, cough, wheezing, and pleuritic chest pain, Abdomen/GI: Negative for abdominal pain, nausea, vomiting, diarrhea, and constipation, Back: Negative for injury and pain, MS/Extremity: Negative for injury and deformity, Skin: Negative for injury, rash, and discoloration, Psych: Negative for depression, anxiety, suicide ideation, homicidal ideation, and hallucinations, Allergy/Immunology: Negative for hives, rash, and allergies, Endocrine: Negative for neck swelling, polydipsia, polyuria, polyphagia, and marked weight changes, Hematologic/Lymphatic: Negative for swollen nodes, abnormal bleeding, and unusual bruising, 08:59 All other systems are negative, Exam: 09:00 Constitutional: This is a well developed, well nourished patient who is awake, alert, sp3 and in no acute distress. Head/Face: Normocephalic, atraumatic. ENT: Nares patent. No nasal discharge, no septal abnormalities noted. External auditory canals are clear. Oropharynx with no redness, swelling, or masses, exudates, or evidence of obstruction, uvula midline. Mucous membranes moist. Neck: Trachea midline, no thyromegaly or masses palpated, and no cervical lymphadenopathy. Supple, full range of motion without nuchal rigidity, or vertebral point tenderness. No Meningismus. Chest/axilla: Normal chest wall appearance and motion. Nontender with no deformity. No lesions are appreciated. Cardiovascular: Regular rate and rhythm with a normal S1 and S2. No gallops, murmurs, or rubs. Normal PMI, no JVD. No pulse deficits. Respiratory: Lungs have equal breath sounds bilaterally, clear to auscultation and percussion. No rales, rhonchi or wheezes noted. No increased work of breathing, no retractions or nasal flaring. Abdomen/GI: Soft, non-tender, with normal bowel sounds. No distension or tympany. No guarding or rebound. No evidence of tenderness throughout. Back: No spinal tenderness. No costovertebral tenderness. Full range of motion. Skin: Warm, dry with normal turgor. Normal color with no rashes, no lesions, and no evidence of cellulitis. MS/ Extremity: Pulses equal, no cyanosis. Neurovascular intact. Full, normal range of motion. Psych: Awake, alert, with orientation to person, place and time. Behavior, mood, and affect are within normal limits. 09:00 Neuro: Awake and alert, GCS 15, oriented to person, place, time, and situation. sp3 Cranial nerves II-XII grossly intact. Motor strength 5/5 in all extremities. Sensory grossly intact. Cerebellar exam normal. Normal gait. Vital Signs: 08:54 BP 134 / 83; Pulse 60; Resp 17; Temp 97.9; Pulse Ox 100% on R/A; Weight 79.38 kg; ll1 Height 5 ft. 8 in. ; Pain 5/10; 09:24 BP 139 / 93; Pulse 61; Resp 18; Pulse Ox 99% on R/A; ph 08:54 Body Mass Index 26.61 (79.38 kg, 172.72 cm) ll1 08:54 Pain Scale: Adult ll1 MDM: 08:49 Medical Screening Exam initiated sp3 09:01 Data reviewed: vital signs, nurses notes, lab test result(s), radiologic studies. ED sp3 course: 79-year-old male with PMH above now with left parietal headache. Differential diagnosis includes idiopathic headache, cluster headache, other intracranial pathology, among others. I am not highly suspicious of intracranial hemorrhage, CVA, traumatic injury or fracture, meningitis, encephalitis or other infection, sepsis, shock or any other critical pathology. Workup include CT scan of the head and general labs with ketorolac IV 50 mg to start for symptomatic control. Patient has normal neurological exam and normal vital signs and is currently in no acute distress. Disposition pending workup and patient course with probable discharge home if workup is negative and patient is trending towards improvement. He has a primary care physician in [facility] which she will follow-up with regardless of outcome.. 09:48 ED course: CT scan negative and all labs normal. Patient is improved after ketorolac sp3 IV. Will safely discharge home with PCP follow-up. OTC Tylenol and ibuprofen for continued pain management.. 05/25 08:55 Order name: Basic Metabolic Panel; Complete Time: :44 sp3 05/25 08:55 Order name: CBC with Diff; Complete Time: :44 sp3 05/25 08:55 Order name: Hepatic Function; Complete Time: :44 sp3 05/25 08:55 Order name: Magnesium; Complete Time: :44 sp3 05/25 08:55 Order name: Protime (+inr); Complete Time: :44 sp3 05/25 08:55 Order name: Ptt, Activated; Complete Time: :44 sp3 05/25 08:55 Order name: CT Head Brain wo Cont; Complete Time: 09:35 sp3 05/25 08:55 Order name: IV Saline Lock; Complete Time: 09:22 sp3 05/25 08:55 Order name: Labs collected and sent; Complete Time: 09:22 sp3 05/25 08:55 Order name: NPO; Complete Time: 09:14 sp3 05/25 08:55 Order name: O2 Sat Monitoring; Complete Time: 09:14 sp3 Administered Medications: 09:22 Drug: Ketorolac IVP 15 mg IVP once Route: IVP; Site: right antecubital; ph 10:06 Follow up: Response: No adverse reaction bp Disposition Summary: 05/25/24 09:49 Discharge Ordered Notes: Location: Home sp3 Condition: Stable sp3 Diagnosis - Headache sp3 Followup: sp3 - With: Private Physician - When: Upon discharge from the Emergency Department - Reason: Continuance of care Discharge Instructions: - Discharge Summary Sheet sp3 - General Headache Without Cause sp3 Forms: - Medication Reconciliation Form sp3 - Antibiotic Education sp3 - Prescription Opioid Use sp3 - Patient Portal Instructions sp3 - Leadership Thank You Letter sp3 Signatures: Dispatcher [employer] EDMS Audra Garcia RN RN ph Sylvia Loja RN RN ll1 Gabriela Hare MD MD sp3 Kiran Saldaña RN bp Corrections: (The following items were deleted from the chart) 08:56 08:56 Head Brain Wo [id number].[id number] ordered. EDMS EDMS
[2024-05-25 10:11] VITALS: TEMP 97.9
[2024-05-25 10:13] VITALS: BP 139/93; O2SAT 99
== END 2024-05-25 10:06 | disposition home or self-care (01) ==
LOC: ER 08:46
DX: R51.9 Headache, unspecified (principal); I10 Essential (primary) hypertension
CPT/HCPCS: 36415; 70450; 80048; 80076; 83735; 85025; 85610; 85730; 96374; 99284

== ENCOUNTER 2024-05-26 08:03 | Emergency (ER) | payer OTHER ==
[2024-05-26] MEDS ORDERED: KETOROLAC 30 MG/ML INJ ONE (08:35)
--- NOTE | 2024-05-26 10:01 | RAD REPORT ---
EXAM: CT Head Brain Wo Cont HISTORY: headache COMPARISON: 05/25/2024 TECHNIQUE: Multiple contiguous axial images were obtained for a CT of the brain without contrast. Sag ittal and coronal reformats were performed. One or more of the following dose reduction techniques were used: Automated exposure control, adjus tment of the mA and kV according to patient size, and iterative reconstruction. Unless otherwise specified, incidental findings do not require dedicated imaging follow-up. FINDINGS: No evidence of hydrocephalus, intracranial hemorrhage, or extra-axial fluid collection. Mild brain atrophy with mild periventricular and deep white matter chronic microvascular ischemic ch anges again present. The calvarium is intact. The visualized paranasal sinuses and mastoid air cells are essentially clear . IMPRESSION: No evidence of acute intracranial abnormality.
--- NOTE | 2024-05-26 10:10 | RAD REPORT ---
EXAMINATION: CTA HEAD, CTA neck CLINICAL INDICATION: Male, 79 years old. left headache and neck pain; See yest labs TECHNIQUE: Axial CT images were obtained through the head and neck after intravenous contrast utili angiographic protocol with 3D post-processing (maximum intensity projection images, volume rendered images and/or shaded surface rendered images). One or more of the following dose reduction techniques were used: Automated exposure control, adjustment of the mA and/or kV according to patient size, and/or iterative reconstruction. Unless otherwise specified, incidental findings do not require dedicated imaging follow-up. COMPARISON: Noncontrast head CT of the previous day. FINDINGS: CTA HEAD: ICA: The petrous, cavernous, and supraclinoid segments of the bilateral internal carotid arteries are normal. POONAM: Anterior cerebral arteries are normal bilaterally. The anterior communicating artery is patent. MCA: Middle cerebral arteries are normal bilaterally. BOAT HOIST OPERATOR HELPER: Posterior cerebral arteries are normal bilaterally. Vertebrobasilar: The vertebral arteries are patent. The basilar artery is patent although diffusely m ildly diminutive in caliber, which may be related to patent bilateral posterior tibial arteries. 3D images confirm these findings. CTA NECK: AORTA: The imaged aortic arch is normal. Normal three-vessel configuration of the arch. CCA: No artifact The common carotid arteries are patent and normal in caliber. ICA/ECA: Bilateral internal and external carotid arteries are patent. There is no significant interna l carotid artery stenosis. VERTEBRAL: The cervical vertebral arteries are patent to the skull base. Vertebral arteries are codom inant. SOFT TISSUE: No significant neck soft tissue abnormalities. The visualized lung apices are clear. Moderate to advanced cervical spine degenerative changes. Sequelae of decompression and hardware fixa tion along the right posterior elements of C3-C6. 3D images confirm these findings. IMPRESSION: No evidence of hemodynamically significant stenosis or large vessel occlusion of the [place] vessels. No significant flow abnormality of the neck vessels is identified. NASCET criteria used to quantify ICA stenosis, with the following grading scheme: Mild 0-49% stenosis Moderate 50-69% stenosis Severe 70-99% stenosis
--- NOTE | 2024-05-26 10:11 | RAD REPORT ---
EXAMINATION: CTA HEAD, CTA neck CLINICAL INDICATION: Male, 79 years old. left headache and neck pain; See yest labs TECHNIQUE: Axial CT images were obtained through the head and neck after intravenous contrast utilizi angiographic protocol with 3D post-processing (maximum intensity projection images, volume rendered images and/or shaded surface rendered images). One or more of the following dose reduction techniques were used: Automated exposure control, adjustment of the mA and/or kV according to patient size, and/or iterative reconstruction. Unless otherwise specified, incidental findings do not require dedicated imaging follow-up. COMPARISON: Noncontrast head CT of the previous day. FINDINGS: CTA HEAD: ICA: The petrous, cavernous, and supraclinoid segments of the bilateral internal carotid arteries are normal. POONAM: Anterior cerebral arteries are normal bilaterally. The anterior communicating artery is patent. MCA: Middle cerebral arteries are normal bilaterally. INJECTION MAINTENANCE TECHNICIAN: Posterior cerebral arteries are normal bilaterally. Vertebrobasilar: The vertebral arteries are patent. The basilar artery is patent although diffusely m ildly diminutive in caliber, which may be related to patent bilateral posterior tibial arteries. 3D images confirm these findings. CTA NECK: AORTA: The imaged aortic arch is normal. Normal three-vessel configuration of the arch. CCA: No artifact The common carotid arteries are patent and normal in caliber. ICA/ECA: Bilateral internal and external carotid arteries are patent. There is no significant interna l carotid artery stenosis. VERTEBRAL: The cervical vertebral arteries are patent to the skull base. Vertebral arteries are codom inant. SOFT TISSUE: No significant neck soft tissue abnormalities. The visualized lung apices are clear. Moderate to advanced cervical spine degenerative changes. Sequelae of decompression and hardware fixa tion along the right posterior elements of C3-C6. 3D images confirm these findings. IMPRESSION: No evidence of hemodynamically significant stenosis or large vessel occlusion of the [place] of [place] vessels. No significant flow abnormality of the neck vessels is identified. NASCET criteria used to quantify ICA stenosis, with the following grading scheme: Mild 0-49% stenosis Moderate 50-69% stenosis Severe 70-99% stenosis Reference: [place] Symptomatic Carotid Endarterectomy Trial Collaborators; Cary YU, Mirian BROTHERS, Chucho RB, et al. Beneficial effect of carotid endarterectomy in symptomatic patients with high-grade carotid stenosis. N Engl J Med. 1990Dec 28;325(7):445-53.
--- NOTE | 2024-05-26 10:14 | ER ---
Nurse's Notes [facility] Name: Lam Josue Age: 79 yrs Sex: Male : 1945 Arrival Date: 05/26/2024 Time: 08:03 Bed 7 Private MD: Mallika Carroll Diagnosis: headache Presentation: 05/26 08:14 Chief complaint: Patient states: Headache x2 days, seen at this facility yesterday, rs5 discharged home. Pt reports headache persists. 08:19 Coronavirus screen: At this time, the client does not indicate any symptoms associated rs5 with coronavirus-19. Ebola Screen: No symptoms or risks identified at this time. Initial Sepsis Screen: Does the patient meet any 2 criteria? No. Patient's initial sepsis screen is negative. Does the patient have a suspected source of infection? No. Patient's initial sepsis screen is negative. Risk Assessment: Do you want to hurt yourself or someone else? Patient reports no desire to harm self or others. Onset of symptoms was 2024. 08:19 Method Of Arrival: Wheelchair rs5 08:19 Acuity: RICHIE 4 rs5 Triage Assessment: 08:38 General: Appears in no apparent distress. comfortable, Behavior is calm, cooperative. db Pain: Complains of pain in back and neck. Neuro: Level of Consciousness is awake, alert, obeys commands, Oriented to person, place, time, situation. Respiratory: Airway is patent Respiratory effort is even, unlabored, Respiratory pattern is regular, symmetrical. Historical: - Allergies: 08:20 No Known Allergies; rs5 - PMHx: 08:20 GERD; Hyperlipidemia; Hypertension; rs5 - PSHx: 08:20 None; rs5 - Immunization history:: Adult Immunizations up to date. - Infectious Disease History:: Denies. - Social history:: Smoking status: Patient denies any tobacco usage or history of. Screenin:50 [facility] ED Fall Risk Assessment (Adult) History of falling in the last 3 months, db including since admission No falls in past 3 months (0 pts) Confusion or Disorientation No (0 pts) Intoxicated or Sedated No (0 pts) Impaired Gait No (0 pts) Mobility Assist Device Used No (0 pt) Altered Elimination No (0 pt) Score/Fall Risk Level 0 - 2 = Low Risk Oriented to surroundings, Maintained a safe environment. Abuse screen: Denies threats or abuse. Denies injuries from another. Nutritional screening: No deficits noted. Tuberculosis screening: No symptoms or risk factors identified. Assessment: 08:35 Respiratory: Airway is patent Respiratory effort is even, unlabored. db 08:49 Reassessment: Patient appears in no apparent distress at this time. Patient and/or db family updated on plan of care and expected duration. Pain level reassessed. Patient is alert, oriented x 3, equal unlabored respirations, skin warm/dry/pink. General: Appears in no apparent distress. comfortable, Behavior is calm, cooperative. Pain: Complains of pain in neck and back. Neuro: Level of Consciousness is awake, alert, obeys commands, Oriented to person, place, time, situation. 08:57 Reassessment: PT UP USING URINAL. db 10:36 Reassessment: Patient appears in no apparent distress at this time. Patient and/or iw family updated on plan of care and expected duration. Pain level reassessed. Patient is alert, oriented x 3, equal unlabored respirations, skin warm/dry/pink. Patient states feeling better. Patient states symptoms have improved. Vital Signs: 08:19 BP 145 / 96; Pulse 65; Resp 17; Temp 98; Pulse Ox 99% ; rs5 10:36 BP 124 / 88; Pulse 55; Resp 18; Pulse Ox 97% on R/A; iw ED Course: 08:04 Patient arrived in ED. am2 08:04 Mallika Carroll is Private Physician. am2 08:06 Gabriela Hare MD is Attending Physician. sp3 08:20 Triage completed. rs5 08:38 Arm band placed on Patient placed in an exam room. db 08:50 Patient has correct armband on for positive identification. Bed in low position. Call db light in reach. Side rails up X 1. Pulse ox on. NIBP on. Pillow given. 09:33 CT Head Angio In Process Unspecified. EDMS 09:33 CT Neck Angio In Process Unspecified. EDMS 09:33 Head Brain Wo Cont In Process Unspecified. EDMS 10:13 Helder Montez MD is Referral Physician. sp3 10:36 Radha Morales, ISABELA is Primary Nurse. iw 10:36 IV discontinued, intact, bleeding controlled, No redness/swelling at site. Pressure iw dressing applied. 10:37 No provider procedures requiring assistance completed. iw Administered Medications: 08:40 Drug: Ketorolac IVP 15 mg IVP once Route: IVP; Site: right antecubital; db 10:37 Follow up: Response: No adverse reaction; Pain is decreased iw Medication: 08:50 VIS not applicable for this client. db Outcome: 10:14 Discharge ordered by . sp3 10:36 Discharged to home via wheelchair, iw 10:36 Condition: good 10:36 Discharge instructions given to patient, Instructed on discharge instructions, follow up and referral plans. Demonstrated understanding of instructions, follow-up care, medications, Prescriptions given X 1, 10:37 Patient left the ED. iw Signatures: Dispatcher [employer] EDMS Radha Morales RN RN iw Mercedes De Jesus am2 Gabriela Hare MD MD sp3 Maria E Lr RN RN db Claude Mixon RN RN rs5 Corrections: (The following items were deleted from the chart) 08:20 08:14 Chief complaint: Patient states: Headache x2 days, seen at this facility rs5 yesterday, discharged home. Pt reports headache persists rs5
--- NOTE | 2024-05-26 10:14 | EDPHYS ---
Physician Documentation [facility] Name: Lam Josue Age: 79 yrs Sex: Male : 1945 Arrival Date: 05/26/2024 Time: 08:03 Bed 7 Private MD: Mallika Carroll ED Physician Gabriela Hare HPI: 05/26 08:34 This 79 yrs old Black Male presents to ER via Wheelchair with complaints of head sp3 pain/neck pain. 08:34 79-year-old male with history of hypertension and hyperlipidemia presents with sp3 left-sided parietal headache and left-sided neck pain. Patient was seen by me yesterday for the headache. Negative CT scan of the head noncontrast and general labs were found. Patient was improved off 50 mg of ketorolac and due to that patient was safely discharged home. Today he states that the pain has returned and includes the neck as well particular when he turns his head to the right. Pain is on the left neck along musculature extending into the face and left parietal region. Patient states that the pain comes for approximately 20 minutes at a time and goes away. Symptoms come every 3-4 hours. He again denies trauma, fever, other neurological symptoms, speech changes, vision changes, memory changes, confusion, focal motor deficits, or any other signs or symptoms on ROS at this time.. Historical: - Allergies: 08:20 No Known Allergies; rs5 - PMHx: 08:20 GERD; Hyperlipidemia; Hypertension; rs5 - PSHx: 08:20 None; rs5 - Immunization history:: Adult Immunizations up to date. - Infectious Disease History:: Denies. - Social history:: Smoking status: Patient denies any tobacco usage or history of. ROS: 08:35 Constitutional: Negative for fever, chills, and weight loss, Eyes: Negative for injury, sp3 pain, redness, and discharge, ENT: Negative for injury, pain, and discharge, Cardiovascular: Negative for chest pain, palpitations, and edema, Respiratory: Negative for shortness of breath, cough, wheezing, and pleuritic chest pain, Abdomen/GI: Negative for abdominal pain, nausea, vomiting, diarrhea, and constipation, Back: Negative for injury and pain, MS/Extremity: Negative for injury and deformity, Skin: Negative for injury, rash, and discoloration, Psych: Negative for depression, anxiety, suicide ideation, homicidal ideation, and hallucinations, Allergy/Immunology: Negative for hives, rash, and allergies, Endocrine: Negative for neck swelling, polydipsia, polyuria, polyphagia, and marked weight changes, Hematologic/Lymphatic: Negative for swollen nodes, abnormal bleeding, and unusual bruising, 08:35 All other systems are negative, Exam: 08:36 Constitutional: This is a well developed, well nourished patient who is awake, alert, sp3 and in no acute distress. Head/Face: Normocephalic, atraumatic. Eyes: Pupils equal round and reactive to light, extra-ocular motions intact. Lids and lashes normal. Conjunctiva and sclera are non-icteric and not injected. Cornea within normal limits. Periorbital areas with no swelling, redness, or edema. ENT: Nares patent. No nasal discharge, no septal abnormalities noted. External auditory canals are clear. Oropharynx with no redness, swelling, or masses, exudates, or evidence of obstruction, uvula midline. Mucous membranes moist. Chest/axilla: Normal chest wall appearance and motion. Nontender with no deformity. No lesions are appreciated. Cardiovascular: Regular rate and rhythm with a normal S1 and S2. No gallops, murmurs, or rubs. Normal PMI, no JVD. No pulse deficits. Respiratory: Lungs have equal breath sounds bilaterally, clear to auscultation and percussion. No rales, rhonchi or wheezes noted. No increased work of breathing, no retractions or nasal flaring. Abdomen/GI: Soft, non-tender, with normal bowel sounds. No distension or tympany. No guarding or rebound. No evidence of tenderness throughout. Back: No spinal tenderness. No costovertebral tenderness. Full range of motion. Skin: Warm, dry with normal turgor. Normal color with no rashes, no lesions, and no evidence of cellulitis. MS/ Extremity: Pulses equal, no cyanosis. Neurovascular intact. Full, normal range of motion. Neuro: Awake and alert, GCS 15, oriented to person, place, time, and situation. Cranial nerves II-XII grossly intact. Motor strength 5/5 in all extremities. Sensory grossly intact. Cerebellar exam normal. Normal gait. Psych: Awake, alert, with orientation to person, place and time. Behavior, mood, and affect are within normal limits. 08:36 Neck: Mild pain to the musculature however not fully reproducible., Vital Signs: 08:19 BP 145 / 96; Pulse 65; Resp 17; Temp 98; Pulse Ox 99% ; rs5 10:36 BP 124 / 88; Pulse 55; Resp 18; Pulse Ox 97% on R/A; iw MDM: 08:11 Medical Screening Exam initiated sp3 08:36 Data reviewed: vital signs, nurses notes, lab test result(s), radiologic studies. ED sp3 course: 79-year-old male with recurrent left-sided headache and left-sided neck pain. Workup yesterday negative. Differential diagnosis includes idiopathic headache, and today potential vascular pathology. Will obtain CT scan angiogram of the neck and head to assess vasculature. If negative, will we will discharge patient to neurology follow-up. Consider cluster headaches as an etiology as well. Ketorolac will again be given today as it helped yesterday. CRP added as well although I am not highly suspicious of temporal arteritis.. 10:13 ED course: All CT angiogram is negative. CRP is also normal. Will reassure patient once sp3 again and have him follow-up with Dr. Montez.. 05/26 08:30 Order name: CRP; Complete Time: 09:03 sp3 05/26 08:30 Order name: CT Head Angio; Complete Time: 10:12 sp3 05/26 08:30 Order name: CT Neck Angio; Complete Time: 10:12 sp3 05/26 09:16 Order name: Head Brain Wo Cont; Complete Time: 10:12 EDMS 05/26 08:30 Order name: IV Saline Lock; Complete Time: 08:43 sp3 05/26 08:30 Order name: Labs collected and sent; Complete Time: 08:43 sp3 Administered Medications: 08:40 Drug: Ketorolac IVP 15 mg IVP once Route: IVP; Site: right antecubital; db 10:37 Follow up: Response: No adverse reaction; Pain is decreased iw Disposition Summary: 05/26/24 10:14 Discharge Ordered Notes: Location: Home sp3 Condition: Stable sp3 Diagnosis - headache sp3 Followup: sp3 - With: Helder Montez MD - When: Upon discharge from the Emergency Department - Reason: Recheck today's complaints Discharge Instructions: - Discharge Summary Sheet sp3 - General Headache Without Cause sp3 Forms: - Medication Reconciliation Form sp3 - Antibiotic Education sp3 - Prescription Opioid Use sp3 - Patient Portal Instructions sp3 - Leadership Thank You Letter sp3 Prescriptions: - Diclofenac Sodium 75 mg Oral Tablet Sustained Release - take 1 tablet ORAL route 2 times per day; 30 tablet; Refills: 0, Product sp3 Selection Permitted Signatures: Dispatcher [employer] EDGabriela Arellano MD MD sp3 Maria E Lr RN RN db Claude Mixon RN RN rs5 Radha Morales RN iw
[2024-05-29 15:14] VITALS: BP 124/88; TEMP 98; O2SAT 97
== END 2024-05-26 10:37 | disposition home or self-care (01) ==
LOC: ER 08:03
DX: R51.9 Headache, unspecified (principal); I10 Essential (primary) hypertension; E78.5 Hyperlipidemia, unspecified; K21.9 Gastro-esophageal reflux disease without esophagitis
CPT/HCPCS: 36415; 86140; 70450; 70496; 70498; 96374; 99284; Q9967